=== PATIENT | female | born 1930 | race Caucasian/White ===

== ENCOUNTER 2016-11-09 19:02 | Inpatient (IN) ==
[2016-11-09 19:50] LABS: Basophils # 0.1 10*3/uL (0.0-0.2); Basophils % 0.5 % (0.0-0.8); Eosinophils % 0.3 % (0.00-10.9); Hemoglobin 13.4 GM/DL (12.0-16.0); Immature Granulocytes % 1.4 %; Immature Granulocytes Absolute 0.21 #; Lymphocytes # 0.7 10*3/uL (1.4-4.0); Lymphocytes % 4.7 % (21.3-54.2); Mean Corpuscular HGB Conc 33.5 GM/DL (32-36); Mean Corpuscular Hemoglobin 28 PG (27-34); Mean Corpuscular Volume 82.8 FL (87-102); Mean Platelet Volume 9.9 FL (9.6-12.0); Monocytes # 0.2 10*3/uL (0.11-0.8); Monocytes % 1.3 % (1.7-12.7); Neutrophils # 13.9 10*3/uL (1.4-7.4); Neutrophils % 91.8 % (38.7-73.9); Platelet Count 248 T/CUMM (130-400); Red Blood Count 4.83 MC/CUMM (3.8-5.5); Red Cell Distribution Width 14.2 % (9.3-17.3); White Blood Count 15.1 T/CUMM (4-12)
[2016-11-09 20:00] LABS: Apearance,Urine CLOUDY (Clear); Bilirubin,Urine Negative (Negative); Blood, Urine Small mg/dL (Negative); Glucose,Urine (UA) Negative (Negative); Ketones,Urine Negative (Negative); Nitrite,Urine Negative (Negative); Protein,Urine 100 MG/DL; RBC,Urine 9 /HPF (0-4); Urine Color Yellow (Yellow); Urine Specific Gravity 1.006 (1.001-1.035); Urine Urobilinogen < 2.0 EU/DL (0.2-1.0); WBC,Urine 412 /HPF (0-6)
--- NOTE | 2016-11-09 20:02 | Emergency Department Note ---
IDevante Hilary, am scribing for, and in the presence of, Rach Camacho DO 19: 38. IDoug Debra, DO, personally performed the services described in this documentation, ascribed by Jyothi Low in my presence, and it is both accurate and complete . Arrival - Arrival Chief Complaint: Fever Stated Complaint: WEAK/DIZZY/FEVER ED Nursing Triage Note: C/O Fever/generalized weakness. Onset this morning upon waking up. Pt denies urinary s/s. Denies recent illness/cough/congestion. States she just doesn't feel good. Mode of Arrival: Wheelchair Limitations: No Limitations Source: Patient, Family, RN Notes Reviewed - History of Present Illness HPI Narrative: Pt is a 86 y/o white female presenting to the ED with c/o of not feeling well which onset today. Pts daughter is in the room and states that she has been nauseous, vomited once, fever and chills. She reports that pt has not bee talkative or active today. Pt denies abdominal pain, RAPHAEL, cough, or chest pain but does mention falling and hurting her right leg the other day, she showed a bandaged lesion on her right leg. No other complaints or problems stated in the ED. Onset (ago): hour(s) Consistency: constant Severity: mild Severity scale (1-10): 1 Date of Last Menstrual Period: Hysterectomy Allergies/Adverse Reactions: Allergies Allergy/AdvReac Type Severity Reaction Status Date / Time meperidine [From Demerol] Allergy Intermediate RASH Verified 11/09/16 19:15 Home Medications: Home Medications Medication Instructions Recorded Confirmed Type Aspirin EC Tab 81 mg PO QAM 11/09/16 11/09/16 History Atorvastatin [Lipitor] 20 mg PO QAM 11/09/16 11/09/16 History Carvedilol 6.25 mg PO BID 11/09/16 11/09/16 History Clopidogrel [Plavix] 75 mg PO QAM 11/09/16 11/09/16 History Docusate Sodium Cap [Colace Cap] 100 mg PO DAILY PRN 11/09/16 11/09/16 History Donepezil HCl 10 mg PO BEDTIME 11/09/16 11/09/16 History Furosemide Tab [Lasix Tab] 40 mg PO QAM 11/09/16 11/09/16 History Gabapentin Cap/Tab [Neurontin 400 mg PO TID 11/09/16 11/09/16 History Cap/Tab] Glimepiride 4 mg PO BID 11/09/16 11/09/16 History Levothyroxine Tab [Synthroid Tab] 50 mcg PO DAILY@0700 11/09/16 11/09/16 History Loratadine Tab [Claritin Tab] 10 mg PO QAM 11/09/16 11/09/16 History Losartan Potassium 100 mg PO QAM 11/09/16 11/09/16 History Magnesium Oxide 400 mg PO QAM 11/09/16 11/09/16 History Multivitamin (Centrum) [Centrum 1 tablet PO QAM 11/09/16 11/09/16 History Tab] Omeprazole 40 mg PO QAM 11/09/16 11/09/16 History PARoxetine [Paxil] 20 mg PO QAM 11/09/16 11/09/16 History Potassium Chloride [Klor-Con M20] 20 meq PO BID 11/09/16 11/09/16 History Solifenacin [Vesicare] 5 mg PO QAM 11/09/16 11/09/16 History amLODIPine [Norvasc] 10 mg PO QAM 11/09/16 11/09/16 History rOPINIRole [Requip] 0.25 mg PO TID 11/09/16 11/09/16 History Review of System - Review of System 12 point system: reviewed and no additional remarkable complaints except as stated - Review of System Constitutional: Present: chills, fever, weakness Respiratory: Absent: cough Cardiovascular: Absent: chest pain Gastrointestinal: Present: nausea, vomiting. Absent: abdominal pain Skin: Present: as per HPI, lesions (right leg) Neurological: Present: weakness. Absent: headache Medical,Surgical,& Family Hx - Medical History Cardio: History of: Hypertension - Social History Smoking Status: Never smoker Frequency of Alcohol Use: None Type of Drug Use: None Exam Vital Signs: Vital Signs Temperature 100.0 F H 11/09/16 19:56 Pulse Rate 80 11/09/16 19:56 Respiratory Rate 20 11/09/16 19:56 Blood Pressure 176/91 11/09/16 19:56 O2 Sat by Pulse Oximetry 92 L 11/09/16 19:46 - General General appearance: alert, in no apparent distress, lethargic - Head Head exam: Present: atraumatic, normocephalic - Eye Eye exam: Present: normal appearance, PERRL, EOMI - ENT ENT exam: Present: mucous membranes dry, TM's normal bilaterally. Absent: mucous membranes moist - Neck Neck exam: Present: full ROM, trachea midline. Absent: tenderness - Chest Chest inspection: Present: symmetric chest wall rise. Absent: tenderness - Respiratory Respiratory exam: Present: normal lung sounds bilaterally. Absent: respiratory distress - Cardiovascular Cardiovascular exam: Present: regular rate, normal rhythm, normal heart sounds. Absent: murmur, rubs, gallop - Abdominal Exam Abdominal exam: Present: soft, normal bowel sounds. Absent: distention, tenderness - Extremities Exam Extremities exam: Present: full ROM. Absent: tenderness - Back Exam Back exam: Present: full ROM. Absent: tenderness - Neurological Exam Neurological exam: Present: alert, oriented X3, CN II-XII intact. Absent: motor sensory deficit - Psychiatric Psychiatric exam: Present: normal affect, normal mood - Skin Skin exam: Present: warm, dry, intact, pallor, other (Dime sized lesion on right leg of the posterior aspect. Pleural draimage present). Absent: rash Course Course Narrative: spoke with DR Wright re DR Torres pt. . will admit for uti with mild dehydration Results - Labs CBC & BMP: 11/09/16 19:34 11/09/16 19:34 Lab Results: I have reviewed the patients labs Labs: Laboratory Tests 11/09/16 11/09/16 19:34 19:34 WBC 15.1 H RBC 4.83 Hgb 13.4 Hct 40.0 MCV 82.8 L Plt Count 248 Neut % (Auto) 91.8 H Lymph % (Auto) 4.7 L [place] % (Auto) 1.3 L Neut # (Auto) 13.9 H Lymph # (Auto) 0.7 L Urine pH 6.0 Ur Specific [place] 1.006 Urine Protein 100 Urine Blood Small Urine Urobilinogen < 2.0 H Urine Leukocytes Large H Urine RBC 9 Urine WBC 412 Urine WBC Clumps Many Laboratory Tests 11/09/16 19:34 Lactic Acid 2.2 H - EKG EKG results: interpreted by ERMJt, no acute changes - Diagnostic Findings Procedure: Chest x-ray: image reviewed by me Disposition Clinical Impression: UTI (urinary tract infection) Case discussed with: patient, patient's family Disposition: Still a Patient Condition: Stable Time of Disposition: 20:33
[2016-11-09 20:13] LABS: Lactic Acid 2.2 MMOL/L (0.4-2.0)
[2016-11-09 20:23] LABS: Alanine Aminotransferase 21 U/L (13-56); Albumin 3.4 G/DL (3.4-5.0); Alkaline Phosphatase 67 U/L (45-117); Aspartate Amino Transferase 16 U/L (0-37); Blood Urea Nitrogen 28 MG/DL (7-18); Calcium 8.7 MG/DL (8.5-10.1); Glucose 143 MG/DL (74-106); Osmolality,Calculated 282.7 MOS/KG (273-304); Potassium 3.7 MMOL/L (3.5-5.1); Sodium 138 MMOL/L (136-145); Total Protein 7.4 G/DL (6.4-8.3); Troponin I Only 0.026 NG/ML (0.00-0.045)
[2016-11-09] MEDS ORDERED: SODIUM CHLORIDE 0.9% 1,000 ML IV STA (20:25)
[2016-11-09] MEDS ORDERED: cefTRIAXone 1,000 MG in SODIUM CHLORIDE 0.9% 100 ML IV STA (20:25)
[2016-11-09] MEDS ORDERED: ONDANSETRON 4 MG/2 ML VIAL IV PRN (20:33)
[2016-11-09] MEDS ORDERED: ACETAMINOPHEN 325 MG TABLET PO PRN (20:33)
[2016-11-09] MEDS ORDERED: cefTRIAXone 1,000 MG VIAL ONE (20:35)
[2016-11-09] MEDS ORDERED: SODIUM CHLORIDE 0.9% 100 ML IV ONE (20:36)
[2016-11-09 20:53] LABS: Band Neutrophils 8 % (0-10); Lymphocytes 4 % (20-55); Platelet Estimate Normal; Segmented Neutrophils 86 % (50-85); Total Cells Counted 100
--- NOTE | 2016-11-09 21:00 | XRay Report ---
Portable chest Date: 11/09/2016 Clinical history: Fever Comparison: 12/03/2012 Technique: Portable AP sitting chest Findings: Stable cardiomegaly with left ventricular prominence and uncoiling the aorta. Chronic scarring in the lungs with reduced parenchymal findings and resolved pleural effusions. Stable mediastinum with degenerative changes. Impression: Stable cardiomegaly with left ventricular prominence and uncoiling the aorta which can be seen with hypertensive cardiovascular disease. Chronic scarring in the lungs. Atelectasis/minimal infiltration at the left lung base. PROCEDURE INTERPRETED AT [facility] DEPARTMENT OF RADIOLOGY Final Report Signed by: Dr. Elisa Dawkins
[2016-11-09] MEDS ORDERED: CIPROFLOXACIN INJ 400 MG in PREMIX 1 EACH IV SCH (22:00)
[2016-11-09] MEDS: SODIUM CHLORIDE 0.9% 1,000 ML IV SCH (22:37)
[2016-11-09] MEDS: DOCUSATE SODIUM 100 MG CAPSULE PO SCH (22:37)
[2016-11-10 02:22] LABS: Basophils # 0.1 10*3/uL (0.0-0.2); Basophils % 0.3 % (0.0-0.8); Hematocrit 35.6 VOL% (35.7-47.0); Hemoglobin 11.6 GM/DL (12.0-16.0); Immature Granulocytes % 0.6 %; Lymphocytes % 5.9 % (21.3-54.2); Mean Corpuscular HGB Conc 32.6 GM/DL (32-36); Mean Corpuscular Hemoglobin 27 PG (27-34); Mean Corpuscular Volume 84.2 FL (87-102); Mean Platelet Volume 10.6 FL (9.6-12.0); Monocytes # 0.7 10*3/uL (0.11-0.8); Monocytes % 3.9 % (1.7-12.7); Neutrophils % 89.3 % (38.7-73.9); Platelet Count 230 T/CUMM (130-400); Red Blood Count 4.23 MC/CUMM (3.8-5.5); Red Cell Distribution Width 14.3 % (9.3-17.3); White Blood Count 16.8 T/CUMM (4-12)
[2016-11-10 02:49] LABS: Calcium 8.4 MG/DL (8.5-10.1); Osmolality,Calculated 289.7 MOS/KG (273-304); Potassium 3.9 MMOL/L (3.5-5.1)
[2016-11-10] MEDS: SODIUM CHLORIDE 0.9% 1,000 ML IV SCH ×2 (04:04→15:59)
[2016-11-10 04:11] LABS: Platelet Estimate Normal
--- NOTE | 2016-11-10 07:44 | Family Practice History&Phys ---
Assessment and Plan (1) Chronic renal failure, stage 3 (moderate) Status: Acute Assessment and plan: 11/11/2015: Patient will be hydrated. Renal ultrasound will be ordered to make sure there is no hydronephrosis. Current Visit: Yes (2) UTI (urinary tract infection) Status: Acute Assessment and plan: 11/10/2016: Patient received 1 g of Rocephin in the emergency room and is now on IV Cipro. Cultures are pending. Current Visit: Yes History of Present Illness Chief complaint: Fever with nausea and vomiting History of present illness: Ms. Chapa is a 86 year old female Patient's 86-year-old white female was brought to emergency room if she developed nausea, vomiting fever and just feeling terrible. Patient was found to have urinary tract infection but did not any frequency or dysuria. She is not having any flank pain states she feels better this morning. Patient has not had any hematuria and states she is not trouble with recurring UTIs. She denies any respiratory symptoms of any nature and is not having any abdominal pain. Patient states she was feeling fine until yesterday afternoon. Home Medications Medication Instructions Recorded Confirmed Type Aspirin EC Tab 81 mg PO QAM 11/09/16 11/09/16 History Atorvastatin [Lipitor] 20 mg PO QAM 11/09/16 11/09/16 History Carvedilol 6.25 mg PO BID 11/09/16 11/09/16 History Clopidogrel [Plavix] 75 mg PO QAM 11/09/16 11/09/16 History Digoxin Tab [Lanoxin Tab] 0.125 mg PO DAILY@1300 11/09/16 11/09/16 History Docusate Sodium Cap [Colace Cap] 100 mg PO DAILY PRN 11/09/16 11/09/16 History Donepezil HCl 10 mg PO BEDTIME 11/09/16 11/09/16 History Furosemide Tab [Lasix Tab] 40 mg PO QAM 11/09/16 11/09/16 History Gabapentin Cap/Tab [Neurontin 400 mg PO TID 11/09/16 11/09/16 History Cap/Tab] Glimepiride 4 mg PO BID 11/09/16 11/09/16 History Levothyroxine Tab [Synthroid Tab] 50 mcg PO DAILY@0700 11/09/16 11/09/16 History Loratadine Tab [Claritin Tab] 10 mg PO QAM 11/09/16 11/09/16 History Losartan Potassium 100 mg PO QAM 11/09/16 11/09/16 History Magnesium Oxide 400 mg PO DAILY 11/09/16 11/09/16 History Magnesium Oxide 400 mg PO QAM 11/09/16 11/09/16 History Multivitamin (Centrum) [Centrum 1 tablet PO QAM 11/09/16 11/09/16 History Tab] Omeprazole 40 mg PO QAM 11/09/16 11/09/16 History PARoxetine [Paxil] 20 mg PO QAM 11/09/16 11/09/16 History Potassium Chloride [Klor-Con M20] 20 meq PO BID 11/09/16 11/09/16 History Solifenacin [Vesicare] 5 mg PO QAM 11/09/16 11/09/16 History amLODIPine [Norvasc] 10 mg PO QAM 11/09/16 11/09/16 History rOPINIRole [Requip] 0.25 mg PO TID 11/09/16 11/09/16 History sitaGLIPtin [Januvia] 100 mg PO DAILY 11/09/16 11/09/16 History Allergies Allergy/AdvReac Type Severity Reaction Status Date / Time meperidine [From Demerol] Allergy Intermediate RASH Verified 11/09/16 19:15 - Constitutional Constitutional: Present: chills, fever(s), weakness - EENT Eyes: Absent: blurry vision, loss of vision Ears: Absent: decreased hearing, ear pain Nose, mouth and throat: Absent: hoarseness, nasal congestion, sinus pressure, sore throat - Cardiovascular Cardiovascular: Absent: chest pain at rest, orthopnea, palpitations, PND - Respiratory Respiratory: Absent: cough, dyspnea, dyspnea on exertion, wheezing - Gastrointestinal Gastrointestinal: Present: nausea, vomiting. Absent: abdominal pain, diarrhea, dyspepsia, dysphagia, hematemesis, hematochezia, melena - Genitourinary Genitourinary: Absent: difficulty urinating, flank pain, hematuria, urinary frequency, urinary hesitancy - Musculoskeletal Musculoskeletal: Absent: arthralgias, back pain - Neurological Neurological: Absent: confusion, focal weakness, headache(s), numbness, paresthesias - Psychiatric Psychiatric: Absent: anxiety, confusion, depression - Endocrine Endocrine: Absent: fatigue, polydipsia, polyphagia - Hematologic/Lymphatic Hematologic/Lymphatic: Absent: easy bleeding, easy bruising Medical,Surgical,& Family Hx - Medical History Cardio: History of: CAD, Hypertension Psychological: History of: Depression Neurology: History of: Dementia HEENT: History of: Ear Problem ([place]) Endocrine: History of: Diabetes Mellitus (IDDM), Thyroid Disorder Respiratory: History of: Pneumonia Genitourinary: History of: Bladder Problem (incontinent) Musculoskeletal: History of: Musculoskeletal Problems (arthritis) - Surgical History Cardiac Surgeries: Sugical HX of: Cardiac Catheterization - Family History Family History: Reports;: Family Cancer (mother- breast), Family Heart Disease ( father), Family Hypertension (mother, father) Denies;: Family Anesthesia Reaction, Family Diabetes, Family Hematology, Family Psychiatric Problems, Family Stroke, Additional Family History - Social History Smoking Status: Never smoker Frequency of Alcohol Use: None Type of Drug Use: None Exam - Constitutional Vitals: Period Temp Pulse Resp BP Sys/Dennison Pulse Ox Last 24 Hr 96.9 F-100.0 F 62-85 14-20 117-176/59-96 92-98 Exam: General: Objective patient is a well-developed white female from [facility] who appears to be in no acute distress. Patient is able to give an excellent history and is still delightful lady who appears much younger than her stated age. HEENT: Pupils equal and reactive to light. Patent nares and airway Neck: No meningismus, adenopathy, thyromegaly. There are no auscultated carotid bruits. Cardiovascular: Regular rhythm. No murmurs or gallops Chest: Clear to auscultation without rales rhonchi wheezes. Abdomen: Soft nontender to palpation No masses, rebound, guarding or tenderness. There is no CVAT Neuro: Cranial nerves intact and DTRs and strength symmetric in all extremities. Dermatologic: No evidence of abnormal lesions or masses. Musculoskeletal: There is no joint swelling or tenderness or deformity. Extremities: Is no calf swelling or tenderness. Results - Labs CBC & BMP: 11/10/16 01:20 11/10/16 01:21 Lab Results: I have reviewed the past 24 hour labs - EKG EKG results: sinus rhythm (73 bpm), no acute changes - Diagnostic Findings Procedure: Chest x-ray: report reviewed by me (Patient is noted to have minimal atelectasis left base. She does have cardiomegaly.)
[2016-11-10] MEDS: GLIMEPIRIDE 4 MG TABLET PO SCH ×2 (08:49→20:31)
[2016-11-10] MEDS: ATORVASTATIN 20 MG TABLET PO SCH (08:49)
[2016-11-10] MEDS: amLODIPine 10 MG TABLET PO SCH (08:49)
[2016-11-10] MEDS: sitaGLIPtin 100 MG TABLET PO SCH (08:49)
[2016-11-10] MEDS: POTASSIUM CHLORIDE 20 MEQ TABLET PO SCH ×2 (08:50→20:31)
[2016-11-10] MEDS: DOCUSATE SODIUM 100 MG CAPSULE PO SCH ×2 (08:50→20:31)
[2016-11-10] MEDS: CLOPIDOGREL 75 MG TABLET PO SCH (08:50)
[2016-11-10] MEDS: LOSARTAN 50 MG TABLET PO SCH (08:50)
[2016-11-10] MEDS: CARVEDILOL 6.25 MG TABLET PO SCH ×2 (08:50→20:31)
[2016-11-10] MEDS: FUROSEMIDE 40 MG TABLET PO SCH (08:50)
[2016-11-10] MEDS: rOPINIRole 0.25 MG TABLET PO SCH ×3 (08:50→20:31)
[2016-11-10] MEDS: SOLIFENACIN 5 MG TABLET PO SCH (08:50)
[2016-11-10] MEDS: LORATADINE 10 MG TABLET PO SCH (08:50)
[2016-11-10] MEDS: PANTOPRAZOLE 40 MG TABLET PO SCH (08:50)
[2016-11-10] MEDS: MAGNESIUM OXIDE 400 MG TABLET PO SCH (08:50)
[2016-11-10] MEDS: GABAPENTIN 400 MG CAPSULE PO SCH ×3 (08:50→20:31)
[2016-11-10] MEDS: ASPIRIN EC 81 MG TABLET PO SCH (08:51)
[2016-11-10] MEDS: PARoxetine 20 MG TABLET PO SCH (08:51)
[2016-11-10] MEDS: MULTIVITAMIN (CENTRUM) TABLET PO SCH (08:51)
[2016-11-10] MEDS ORDERED: NON-FORMULARY MEDICATION (Omeprazole [Omeprazole] 40 MG) PO SCH (09:00)
--- NOTE | 2016-11-10 09:01 | EKG Report ---
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
[2016-11-10] MEDS ORDERED: ALBUTEROL/IPRATROPIUM 3 ML NEB RESP TX PRN (10:37)
--- NOTE | 2016-11-10 10:44 | Ultrasound Report ---
Exam: US renal Bilateral Date: 11/10/2016 7:39 AM Comparison: None Indication: UTI, elevated creatinine Technique:[Multiple transabdominal real-time scans were obtained of the kidneys. Ultrasound images were captured and stored.] Findings: Right kidney measures 108 x 52 x 50 mm. Left kidney measures 95 x 53 x 50 mm. No hydronephrosis with inhomogeneous echogenicity in the kidneys. Minimal right perinephric fluid. 14 mm, 8 mm, and 12 mm simple appearing left midpole renal cysts. Impression: The kidneys are fairly symmetric in size with no hydronephrosis. Minimal right perinephric fluid which may be associated with infection, inflammation, etc. Small left renal cysts. Inhomogeneous echogenicity which can be seen with possible medical renal disease. PROCEDURE INTERPRETED AT [facility] DEPARTMENT OF RADIOLOGY Final Report Signed by: Dr. Elisa Dawkins
[2016-11-10] MEDS ORDERED: methylPREDNISolone SOD SUC 40 MG/1 ML VIAL IV ONE (11:08)
[2016-11-10] MEDS ORDERED: ALBUTEROL 2.5 MG/3 ML NEB RESP TX ONE ×2 (11:08)
[2016-11-10] MEDS ORDERED: FUROSEMIDE 40 MG/4 ML VIAL IV ONE ×3 (11:22→11:57)
[2016-11-10] MEDS ORDERED: MORPHINE 2 MG/1 ML SYRINGE IV ONE (11:23)
--- NOTE | 2016-11-10 11:49 | XRay Report ---
Portable chest Date: 11/10/2016 Clinical history: Shortness of breath Comparison: 11/09/2016 Technique: Portable AP sitting chest Findings: Stable cardiomegaly with left ventricular prominence and uncoiling of the aorta. More prominent pulmonary vasculature with progressive parenchymal findings especially at the lung bases. Degenerative changes are noted. Impression: Stable cardiomegaly with evidence of mild CHF. It is difficult to exclude pneumonitis with reticulonodular parenchymal findings. Minimal atelectasis. Follow-up chest x-ray recommended. PROCEDURE INTERPRETED AT [facility] DEPARTMENT OF RADIOLOGY Final Report Signed by: Dr. Elisa Dawkins
--- NOTE | 2016-11-10 11:51 | EKG Report ---
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
[2016-11-10] MEDS ORDERED: MORPHINE 2 MG/1 ML SYRINGE IV PRN (11:55)
[2016-11-10] MEDS ORDERED: hydrALAZINE 20 MG/1 ML VIAL IV ONE (11:56)
--- NOTE | 2016-11-10 14:19 | Nuclear Medicine Report ---
Exam: Lung scan ventilation/perfusion Date: 11/10/2016 Comparison: Chest x-ray the 11/10/2016 Reason: Shortness of breath, low O2 sats Technique: 30 mCi of technetium 99m DTPA aerosolized was inhaled with injection of 5 mCi of technetium 99m MAA . 3 view Ventilation and perfusion images of both lungs were acquired. Findings: Diffuse diminished ventilation peripherally in the lungs with minimal central trapping of the isotope on the ventilation scans. No unmatched perfusion defects are identified. The perfusion defects are less prominent than the ventilation defects. Impression: Limited three-view low probability lung scan. PROCEDURE INTERPRETED AT [facility] DEPARTMENT OF RADIOLOGY Final Report Signed by: Dr. Elisa Dawkins
[2016-11-10] MEDS: ENOXAPARIN 30 MG/0.3 ML SYRINGE SUBCUT SCH (15:35)
[2016-11-10] MEDS: CIPROFLOXACIN INJ 400 MG in PREMIX 1 EACH IV SCH (15:35)
[2016-11-10] MEDS: DIGOXIN 0.125 MG TABLET PO SCH (15:36)
[2016-11-10] MEDS: ALBUTEROL 2.5 MG/3 ML NEB RESP TX SCH ×3 (15:46→23:58)
[2016-11-10] MEDS ORDERED: FUROSEMIDE 40 MG/4 ML VIAL IV SCH (16:00)
[2016-11-10] MEDS: DONEPEZIL 10 MG TABLET PO SCH (20:31)
[2016-11-11] MEDS: ALBUTEROL 2.5 MG/3 ML NEB RESP TX SCH ×5 (02:56→19:10)
[2016-11-11 04:49] LABS: Calcium 8.3 MG/DL (8.5-10.1); Magnesium 2.2 MG/DL (1.8-2.4); Potassium 4.3 MMOL/L (3.5-5.1)
[2016-11-11] MEDS: LEVOTHYROXINE 50 MCG TABLET PO SCH (06:33)
[2016-11-11] MEDS: sitaGLIPtin 100 MG TABLET PO SCH ×2 (08:04→08:51)
[2016-11-11] MEDS: LOSARTAN 50 MG TABLET PO SCH (08:04)
[2016-11-11] MEDS: GLIMEPIRIDE 4 MG TABLET PO SCH ×2 (08:04→20:17)
[2016-11-11] MEDS: amLODIPine 10 MG TABLET PO SCH (08:04)
[2016-11-11] MEDS: SOLIFENACIN 5 MG TABLET PO SCH (08:04)
[2016-11-11] MEDS: MULTIVITAMIN (CENTRUM) TABLET PO SCH (08:04)
[2016-11-11] MEDS: PANTOPRAZOLE 40 MG TABLET PO SCH (08:04)
[2016-11-11] MEDS: LORATADINE 10 MG TABLET PO SCH (08:04)
[2016-11-11] MEDS: DOCUSATE SODIUM 100 MG CAPSULE PO SCH ×2 (08:05→20:17)
[2016-11-11] MEDS: PARoxetine 20 MG TABLET PO SCH (08:05)
[2016-11-11] MEDS: ATORVASTATIN 20 MG TABLET PO SCH (08:05)
[2016-11-11] MEDS: FUROSEMIDE 40 MG TABLET PO SCH (08:05)
[2016-11-11] MEDS: POTASSIUM CHLORIDE 20 MEQ TABLET PO SCH ×2 (08:05→20:17)
[2016-11-11] MEDS: GABAPENTIN 400 MG CAPSULE PO SCH ×3 (08:05→20:17)
[2016-11-11] MEDS: CLOPIDOGREL 75 MG TABLET PO SCH (08:05)
[2016-11-11] MEDS: CARVEDILOL 6.25 MG TABLET PO SCH ×2 (08:05→20:17)
[2016-11-11] MEDS: MAGNESIUM OXIDE 400 MG TABLET PO SCH (08:05)
[2016-11-11] MEDS: ASPIRIN EC 81 MG TABLET PO SCH (08:05)
[2016-11-11] MEDS: rOPINIRole 0.25 MG TABLET PO SCH ×3 (08:05→20:17)
--- NOTE | 2016-11-11 08:42 | Internal Med Progress Note ---
Assessment and Plan (1) Bacteremia Status: Acute Assessment and plan: 86-year-old female admitted to acute care. * Bacteremia. Patient was found to have positive blood cultures with gram- negative rods and urine culture with gram-negative rods. Sensitivities pending. She is on Cipro. Will add Rocephin for broader coverage * CRF. Her creatinine is slightly higher than the baseline of 1.7. Renal ultrasound noted * Hypertension. Blood pressure is stable * Diabetes. Stable. Will decrease the dose of Januvia * Continue present management. Current Visit: Yes (2) Diabetes Status: Acute Current Visit: Yes (3) Hypertension Status: Acute Current Visit: Yes (4) Hypothyroidism Status: Acute Current Visit: Yes (5) Chronic renal failure, stage 3 (moderate) Status: Acute Current Visit: Yes (6) UTI (urinary tract infection) Status: Acute Current Visit: Yes Internal Medicine - PN: Subj Interval history: Patient seen and examined. She is sitting up in the bed eating her breakfast. She feels better. Her energy level has improved. She denies any chest pain or shortness of breath. She denies any nausea vomiting or diarrhea. Exam (Progress Note) - Constitutional Vitals: Period Temp Pulse Resp BP Sys/Dennison Pulse Ox Last 24 Hr 96.4 F-98.8 F 57-104 15-20 146-220/52-110 84-98 Exam: Examination: GENERAL: NAD. HEENT: PERRLA. EOMI. Mucous membranes are moist. NECK: Neck is supple. No JVD. No carotid bruit. No thyromegaly. CVS: Regular rate and rhythm. S1 and S2 are normal. RESPIRATORY: Lungs are clear. No rales or rhonchi. ABDOMEN: Soft and nontender. EXT: No edema. Peripheral pulses are present. CRUISE GUIDE: Patient is awake, alert and oriented to time place and person. Motor strength 4/5 SKIN: Warm and dry. MSK: No obvious deformity. Results - Labs CBC & BMP: 11/10/16 01:20 11/11/16 03:23 Lab Results: I have reviewed the past 24 hour labs
[2016-11-11] MEDS: cefTRIAXone 1,000 MG in SODIUM CHLORIDE 0.9% 100 ML IV SCH (08:56)
[2016-11-11] MEDS: CIPROFLOXACIN INJ 400 MG in PREMIX 1 EACH IV SCH (09:00)
[2016-11-11] MEDS: DIGOXIN 0.125 MG TABLET PO SCH (13:58)
[2016-11-11] MEDS: ENOXAPARIN 30 MG/0.3 ML SYRINGE SUBCUT SCH (13:59)
[2016-11-11] MEDS: DONEPEZIL 10 MG TABLET PO SCH (20:17)
[2016-11-12] MEDS: ALBUTEROL 2.5 MG/3 ML NEB RESP TX SCH ×7 (00:03→23:44)
[2016-11-12] MEDS ORDERED: FUROSEMIDE 20 MG/2 ML VIAL IV ONE (02:08)
[2016-11-12] MEDS ORDERED: FUROSEMIDE 40 MG/4 ML VIAL ONE (02:12)
[2016-11-12] MEDS ORDERED: hydrALAZINE 20 MG/1 ML VIAL IV ONE ×2 (03:04→05:04)
[2016-11-12] MEDS: CIPROFLOXACIN INJ 400 MG in PREMIX 1 EACH IV SCH ×2 (04:23→23:42)
[2016-11-12 04:57] LABS: Calcium 8.9 MG/DL (8.5-10.1); Osmolality,Calculated 289.5 MOS/KG (273-304); Potassium 3.9 MMOL/L (3.5-5.1); Troponin I Only 0.336 NG/ML (0.00-0.045)
--- NOTE | 2016-11-12 06:17 | EKG Report ---
Stationary ECG Study 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
[2016-11-12] MEDS: LEVOTHYROXINE 50 MCG TABLET PO SCH (06:18)
[2016-11-12 06:20] LABS: Basophils % 0.2 % (0.0-0.8); Eosinophils # 0.1 10*3/uL (0.0-0.87); Eosinophils % 0.5 % (0.00-10.9); Hematocrit 34.5 VOL% (35.7-47.0); Hemoglobin 11.2 GM/DL (12.0-16.0); Immature Granulocytes % 0.8 %; Immature Granulocytes Absolute 0.14 #; Lymphocytes # 1.3 10*3/uL (1.4-4.0); Lymphocytes % 7.8 % (21.3-54.2); Mean Corpuscular HGB Conc 32.5 GM/DL (32-36); Mean Corpuscular Hemoglobin 27 PG (27-34); Mean Corpuscular Volume 83.1 FL (87-102); Mean Platelet Volume 10.6 FL (9.6-12.0); Monocytes # 1.1 10*3/uL (0.11-0.8); Monocytes % 6.8 % (1.7-12.7); Neutrophils # 14.1 10*3/uL (1.4-7.4); Neutrophils % 83.9 % (38.7-73.9); Platelet Count 257 T/CUMM (130-400); Red Blood Count 4.15 MC/CUMM (3.8-5.5); Red Cell Distribution Width 14.3 % (9.3-17.3); White Blood Count 16.8 T/CUMM (4-12)
--- NOTE | 2016-11-12 08:18 | Internal Med Progress Note ---
Assessment and Plan (1) Bacteremia Status: Acute Assessment and plan: 86-year-old female admitted to acute care. * Bacteremia. Patient was found to have positive blood cultures with gram- negative rods with Klebsiella pneumonia. She will continue Cipro and Rocephin * CRF. Continue current treatment * CHF. Patient was moved to intensive care unit because of shortness of breath. Probably fluid overload. Her initial troponin is slightly high but she had no chest pain. Will check another troponin and check echocardiogram. Fluids have been stopped * Hypertension. Blood pressure is stable * Diabetes. Stable. Will decrease the dose of Januvia * Continue present management. Current Visit: Yes (2) Diabetes Status: Acute Current Visit: Yes (3) Hypertension Status: Acute Current Visit: Yes (4) Hypothyroidism Status: Acute Current Visit: Yes (5) Chronic renal failure, stage 3 (moderate) Status: Acute Current Visit: Yes (6) UTI (urinary tract infection) Status: Acute Current Visit: Yes Internal Medicine - PN: Subj Interval history: Patient developed wheezing during the night and was moved to intensive care unit. She was short of breath and diuresed with IV Lasix. She denies any complaints this morning. Exam (Progress Note) - Constitutional Vitals: Period Temp Pulse Resp BP Sys/Dennison Pulse Ox Last 24 Hr 97.2 F-100.8 F 57-84 16-29 149-231/61-126 86-99 Exam: Examination: GENERAL: NAD. NECK: Neck is supple. CVS: Regular rate and rhythm. S1 and S2 are normal. RESPIRATORY: Lungs are clear. ABDOMEN: Soft and nontender. EXT: No edema. 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 Motor strength 4/5 SKIN: Warm and dry. Results - Labs CBC & BMP: 11/12/16 05:17 11/12/16 04:11
[2016-11-12] MEDS: SOLIFENACIN 5 MG TABLET PO SCH (08:43)
[2016-11-12] MEDS: rOPINIRole 0.25 MG TABLET PO SCH ×3 (08:44→20:27)
[2016-11-12] MEDS: LOSARTAN 50 MG TABLET PO SCH (08:44)
[2016-11-12] MEDS: LORATADINE 10 MG TABLET PO SCH (08:44)
[2016-11-12] MEDS: sitaGLIPtin 100 MG TABLET PO SCH (08:45)
[2016-11-12] MEDS: MAGNESIUM OXIDE 400 MG TABLET PO SCH (08:45)
[2016-11-12] MEDS: ASPIRIN EC 81 MG TABLET PO SCH (08:45)
[2016-11-12] MEDS: GLIMEPIRIDE 4 MG TABLET PO SCH ×2 (08:45→20:27)
[2016-11-12] MEDS: DOCUSATE SODIUM 100 MG CAPSULE PO SCH ×2 (08:45→20:27)
[2016-11-12] MEDS: PARoxetine 20 MG TABLET PO SCH (08:46)
[2016-11-12] MEDS: POTASSIUM CHLORIDE 20 MEQ TABLET PO SCH ×2 (08:46→20:27)
[2016-11-12] MEDS: GABAPENTIN 400 MG CAPSULE PO SCH ×3 (08:46→20:27)
[2016-11-12] MEDS: CLOPIDOGREL 75 MG TABLET PO SCH (08:46)
[2016-11-12] MEDS: FUROSEMIDE 40 MG TABLET PO SCH (08:47)
[2016-11-12] MEDS: CARVEDILOL 6.25 MG TABLET PO SCH ×2 (08:47→20:27)
[2016-11-12] MEDS: MULTIVITAMIN (CENTRUM) TABLET PO SCH (08:47)
[2016-11-12] MEDS: PANTOPRAZOLE 40 MG TABLET PO SCH (08:47)
[2016-11-12] MEDS: amLODIPine 10 MG TABLET PO SCH (08:47)
[2016-11-12] MEDS: ATORVASTATIN 20 MG TABLET PO SCH ×2 (08:48→20:27)
[2016-11-12] MEDS: cefTRIAXone 1,000 MG in SODIUM CHLORIDE 0.9% 100 ML IV SCH (08:48)
--- NOTE | 2016-11-12 09:36 | XRay Report ---
Exam: XR chest 1V Date: 11/12/2016 8:08 AM Indication: Volume overload Comparison: 11/10/2016 Technical: AP portable Findings: Cardiomegaly present with ASVD. Some minimal atelectatic change in the right base. Oxygen tubing external cardiac leads are present. No pneumothorax. No definite consolidations are significant effusions present. Impression: 1. Mild cardiomegaly and ASVD with atelectatic change in the right base with overall decreased alveolar interstitial densities when compared to previous exam PROCEDURE INTERPRETED AT [facility] DEPARTMENT OF RADIOLOGY Final Report Signed by: Dr. Rufus Gramajo
[2016-11-12 09:40] LABS: Troponin I Only 0.373 NG/ML (0.00-0.045)
[2016-11-12 13:42] LABS: Troponin I Only 0.361 NG/ML (0.00-0.045)
--- NOTE | 2016-11-12 14:20 | ECHO Report ---
SammiNitza calvilloba Exam Date: 11/12/2016 09:46 Referring Physician: Technologist: Gayatri Griffith Age: 86 Ht (in): 63 Wt (lb): 144 Gender: F Exam Location: [facility] Echo Indications: HTN, bacteremia, diabetes, hypothyroidism, CRF III, UTI BP: 164 / 61 HR: 83 Rhythm: Sinus Technical Quality: Fair IMPRESSIONS EF 45-50 %. Grade I/IV diastolic dysfunction (abnormal relaxation filling pattern), normal to mildly elevated filling pressures. Mildly increased right ventricular size. The right atrium is mildly enlarged. The left atrium is mildly enlarged. Mitral valve sclerosis. Trace mitral valve regurgitation. Aortic valve sclerosis. Trace aortic valve regurgitation. Mild tricuspid valve regurgitation. [id number]. Trace pulmonary valve regurgitation. No pericardial effusion. Normal size aortic root and proximal ascending aorta. MEASUREMENTS (Male / Female) Normal Values 2D ECHO LV Diastolic Diameter PLAX 4.3 cm 4.2 - 5.9 / 3.9 - 5.3 cm LV Systolic Diameter PLAX 3.4 cm LV Fractional Shortening PLAX 22.1 % IVS Diastolic Thickness 1.4 cm 0.6 - 1.0 / 0.6 - 0.9 cm LVPW Diastolic Thickness 1.4 cm 0.6 - 1.0 / 0.6 - 0.9 cm RV Internal Dim ED PLAX 2.9 cm Aortic Root Diameter 3.9 cm LA Systolic Diameter LX 4.4 cm 3.0 - 4.0 / 2.7 - 3.8 cm DOPPLER TR Peak Velocity 227.0 cm/s TR Peak Gradient 20.6 mmHg FINDINGS Left Ventricle EF 45-50 %. Grade I/IV diastolic dysfunction (abnormal relaxation filling pattern), normal to mildly elevated filling pressures. Right Ventricle Mildly increased right ventricular size. Right Atrium The right atrium is mildly enlarged. Left Atrium The left atrium is mildly enlarged. Mitral Valve Mitral valve sclerosis. Trace mitral valve regurgitation. Aortic Valve Aortic valve sclerosis. Trace aortic valve regurgitation. Tricuspid Valve Morphologically normal tricuspid valve. Mild tricuspid valve regurgitation. [id number]. Pulmonic Valve Morphologically normal pulmonic valve. Trace pulmonary valve regurgitation. Pericardium No pericardial effusion. Aorta Normal size aortic root and proximal ascending aorta. Emiliano Shanda (Electronically Signed) Final Date: 12 November 2016 14:19
[2016-11-12] MEDS: DIGOXIN 0.125 MG TABLET PO SCH (14:49)
[2016-11-12] MEDS: ENOXAPARIN 30 MG/0.3 ML SYRINGE SUBCUT SCH (14:49)
--- NOTE | 2016-11-12 17:02 | Cardiology Consult Note ---
I, Iris Tay RN, am scribing for, and in the presence of, Olaf Land MD 16:58. Assessment and Plan - Time spent with patient Time spent with patient: Greater than 30 minutes (Assessment, planning, documentation, medication review) (1) CAD (coronary artery disease) Status: Chronic Current Visit: Yes Qualifiers: Coronary Disease-Associated Artery/Lesion type: [place] artery [place] vs. transplanted heart: [place] heart (2) Bacteremia Status: Acute Current Visit: Yes (3) Chronic renal failure, stage 3 (moderate) Status: Chronic Current Visit: Yes (4) Diabetes Status: Chronic Current Visit: Yes (5) Hypertension Status: Chronic Current Visit: Yes (6) Elevated troponin Status: Acute Current Visit: Yes History of Present Illness - Data of Consult Patient: known to practice within the last 3 years Consult date: 11/12/16 Requesting Physician: Zafar Mehta - Consult Narrative Reason for consult: Elevated troponin History of present illness: Rip Tailer: Dr. Keith in the remote past Ms. Chapa is a 86 year old female who has been seen by Dr. Keith remotely. History is difficult to obtain from her because she keeps dozing off. Her is at bedside and assists with the history, but his knowledge is limited. She had stent to mid LAD 12/01/2012 Dr. Keith. Her does not think she has seen cardiology since then and I find no records since that time. She has a history of CAD, dyslipidemia, hypertension, GERD, chronic renal failure, and NIDDM. Surgical history includes appendectomy, cholecystectomy, and hysterectomy. She no longer smokes, her says she quit about 25 years ago. She lives at home with her and uses a cane for assistance. Her states she has been experiencing weakness for a couple of weeks has gradually gotten worse. On 11/09/2016 she became weak and fell in the living room. She denies any syncope, says she just lost her balance. After the fall she became short of breath which she said she did not think she was having before that. reports she been complaining of being hot and cold a lot. After the fall her daughter checked her temp it was noted to be 103. She denies having had any chest pain, but does tell me she has had a tightness all the way across her chest that seems to come on when she gets short of breath. She is unable to tell me how long she has been having this pain or when she had it last. I am unable to get from her any triggers or alleviators. When asked her , he says she really has not complained of any chest pain or tightness. She was found to have positive blood and urine cultures with gram- negative rods with Klebsiella pneumoniae. She is on IV Cipro and Rocephin. Chest x-ray showed mild cardiomegaly and minimal atelectasis in the right base. She had a low probability lung scan. Renal ultrasound negative. We have been asked to see the patient for elevated troponin. Currently she is resting in bed in the intensive care in no acute distress. Oxygen is in use via nasal cannula and she reports her breathing has improved some. She denies any chest pain or tightness at this time. 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 CAD 2. Bacteremia 3. Chronic renal failure 4. Diabetes 5. Hypertension 6. Elevated troponin Cardiology addendum Patient examined chart reviewed and discussed with nurse Iris Tay RN. 86-year-old woman admitted with weakness and shortness of breath and nausea. Patient has Klebsiella bacteremia and UTI. Chest x-ray shows mild cardiomegaly with cephalization of flow and early CHF. Trivial troponin 0.336 and 0.373 in the face of chronic renal insufficiency. BUN 47 creatinine 2.20. EKG shows sinus rhythm With preserved airways and ST-T wave changes. Patient has documented CAD. Cardiac cath done December 01, [address] Bernal showed 95% mid LAD which was stented with a 2.25 x 28 mm Zions drug-coated stent with circumflex 30-40% stenosis and mild disease the right coronary with an occluded posterior LV branch. Echo Doppler today showed ejection fraction of 45-50% with mild dilated left atrium, aortic sclerosis, mild TR PA pressure 35-40 with no effusion. Remote tobacco abuse, quit 1989. Does not drink any alcohol. 5 feet 3 inches tall 154 pounds. Type 2 diabetes Plan continue Cipro and Rocephin. Await organism sensitivities 40 mg IV Lasix CC: Zafar Mehta MD - Home Medications and Allergies Home Medications: Home Medications Medication Instructions Recorded Confirmed Type Aspirin EC Tab 81 mg PO QAM 11/09/16 11/09/16 History Atorvastatin [Lipitor] 20 mg PO QAM 11/09/16 11/09/16 History Carvedilol 6.25 mg PO BID 11/09/16 11/09/16 History Clopidogrel [Plavix] 75 mg PO QAM 11/09/16 11/09/16 History Digoxin Tab [Lanoxin Tab] 0.125 mg PO DAILY@1300 11/09/16 11/09/16 History Docusate Sodium Cap [Colace Cap] 100 mg PO DAILY PRN 11/09/16 11/09/16 History Donepezil HCl 10 mg PO BEDTIME 11/09/16 11/09/16 History Furosemide Tab [Lasix Tab] 40 mg PO QAM 11/09/16 11/09/16 History Gabapentin Cap/Tab [Neurontin 400 mg PO TID 11/09/16 11/09/16 History Cap/Tab] Glimepiride 4 mg PO BID 11/09/16 11/09/16 History Levothyroxine Tab [Synthroid Tab] 50 mcg PO DAILY@0700 11/09/16 11/09/16 History Loratadine Tab [Claritin Tab] 10 mg PO QAM 11/09/16 11/09/16 History Losartan Potassium 100 mg PO QAM 11/09/16 11/09/16 History Magnesium Oxide 400 mg PO DAILY 11/09/16 11/09/16 History Magnesium Oxide 400 mg PO QAM 11/09/16 11/09/16 History Multivitamin (Centrum) [Centrum 1 tablet PO QAM 11/09/16 11/09/16 History Tab] Omeprazole 40 mg PO QAM 11/09/16 11/09/16 History PARoxetine [Paxil] 20 mg PO QAM 11/09/16 11/09/16 History Potassium Chloride [Klor-Con M20] 20 meq PO BID 11/09/16 11/09/16 History Solifenacin [Vesicare] 5 mg PO QAM 11/09/16 11/09/16 History amLODIPine [Norvasc] 10 mg PO QAM 11/09/16 11/09/16 History rOPINIRole [Requip] 0.25 mg PO TID 11/09/16 11/09/16 History sitaGLIPtin [Januvia] 100 mg PO DAILY 11/09/16 11/09/16 History Allergies/Adverse Reactions: Allergies Allergy/AdvReac Type Severity Reaction Status Date / Time meperidine [From Demerol] Allergy Intermediate RASH Verified 11/09/16 19:15 ROS unobtainable: other (She is drowsy continues to dose off) Medical,Surgical,& Family Hx - Medical History Cardio: History of: CAD, Hypertension Psychological: History of: Depression Neurology: History of: Dementia HEENT: History of: Ear Problem ([place]) Endocrine: History of: Diabetes Mellitus (NIDDM), Thyroid Disorder Respiratory: History of: Pneumonia Genitourinary: History of: Bladder Problem (incontinent) Musculoskeletal: History of: Musculoskeletal Problems (arthritis) - Surgical History Cardiac Surgeries: Sugical HX of: Cardiac Catheterization (2012) Abdominal Surgeries: Surgical HX of: Appendectomy, Cholecystectomy Reproductive Surgeries: Surgical HX of;: Hysterectomy - Family History Family History: Reports;: Family Cancer (mother- breast), Family Heart Disease ( father), Family Hypertension (mother, father) - Social History Smoking Status: Former smoker (Quit 25 years ago) Have you smoked in the last 12 months: No Frequency of Alcohol Use: None Type of Drug Use: None Marital Status: Lives With:: Spouse Functional capacity: uses cane/walker Physical Examination Vital Signs Temp Pulse Resp BP Pulse Ox 100.0 F H 85 16 147/64 95 11/09/16 19:15 11/09/16 19:15 11/09/16 19:15 11/09/16 19:15 11/09/16 19:15 General: Present: Appears Well, No Apparent Distress HEENT: Present: PERRL, Mucus Membranes Moist Neck: Present: Supple Neck, Midline Trachea Cardiac: Present: Reg Rate and Rhythm, Bradycardia Lungs: Present: Normal Breath Sounds, Oxygen (Via nasal cannula), No Wheeze, Rales, Rhonchi Neuro: Absent: Resting Tremor, Essential Tremor Abdomen: Present: Soft, Active Bowel Sounds, Non-Tender. Absent: Distended Skin: Present: Wound (Right ankle, covered with Band-Aid). Absent: Rash, Suspicious Lesions Musculoskeletal: Present: Decreased Range of Motion Gait: Present: Poor Gait Extremities: Present: No Edema, Normal Upper Extr. Pulses, Normal Lower Extr. Pulses Result/EKG - Labs CBC & BMP: 11/12/16 05:17 11/12/16 04:11 Lab Results: I have reviewed the past 24 hour labs Labs: Laboratory Results - last 24 hr 11/11/16 11/11/16 11/11/16 07:09 11:16 15:59 WBC RBC Hgb Hct MCV MCH MCHC RDW Plt Count MPV Neut % (Auto) Lymph % (Auto) [place] % (Auto) Eos % (Auto) Baso % (Auto) Neut # (Auto) Lymph # (Auto) [place] # (Auto) Eos # (Auto) Baso # (Auto) Immature Gran % Nucleated RBC % Immature Gran # Nucleated RBCs # Sodium Potassium Chloride Carbon Dioxide Anion Gap BUN Creatinine GFR Calculation BUN/Creatinine Ratio Glucose POC Glucose 193 H 159 H 172 H Calculated Osmolality Calcium Total Creatine Kinase CK-MB (CK-2) Troponin I 11/11/16 11/12/16 11/12/16 21:16 02:51 04:11 WBC RBC Hgb Hct MCV MCH MCHC RDW Plt Count MPV Neut % (Auto) Lymph % (Auto) [place] % (Auto) Eos % (Auto) Baso % (Auto) Neut # (Auto) Lymph # (Auto) [place] # (Auto) Eos # (Auto) Baso # (Auto) Immature Gran % Nucleated RBC % Immature Gran # Nucleated RBCs # Sodium 139 Potassium 3.9 Chloride 101 Carbon Dioxide 26 Anion Gap 15.9 H BUN 47 H Creatinine 2.20 H GFR Calculation 20 BUN/Creatinine Ratio 21.00 H Glucose 119 H POC Glucose 161 H 115 H Calculated Osmolality 289.5 Calcium 8.9 Total Creatine Kinase CK-MB (CK-2) Troponin I 11/12/16 11/12/16 11/12/16 04:11 05:17 09:01 WBC 16.8 H RBC 4.15 Hgb 11.2 L Hct 34.5 L MCV 83.1 L MCH 27 MCHC 32.5 RDW 14.3 Plt Count 257 MPV 10.6 Neut % (Auto) 83.9 H Lymph % (Auto) 7.8 L [place] % (Auto) 6.8 Eos % (Auto) 0.5 Baso % (Auto) 0.2 Neut # (Auto) 14.1 H Lymph # (Auto) 1.3 L [place] # (Auto) 1.1 H Eos # (Auto) 0.1 Baso # (Auto) 0.0 Immature Gran % 0.8 Nucleated RBC % 0.0 Immature Gran # 0.14 Nucleated RBCs # 0.00 Sodium Potassium Chloride Carbon Dioxide Anion Gap BUN Creatinine GFR Calculation BUN/Creatinine Ratio Glucose POC Glucose Calculated Osmolality Calcium Total Creatine Kinase 104 D 70 D CK-MB (CK-2) 2.6 1.2 Troponin I 0.336 H D 0.373 H - Diagnostic Findings Procedure: Chest x-ray: report reviewed by me - EKG EKG results: interpreted by me EKG shows: bradycardia, sinus rhythm IShanda Thomas, MD, personally performed the services described in this documentation, ascribed by Iris Tay RN in my presence, and it is both accurate and complete [id number] .
[2016-11-12] MEDS ORDERED: FUROSEMIDE 40 MG/4 ML VIAL IV ONE (17:21)
[2016-11-12 18:57] LABS: Troponin I Only 0.325 NG/ML (0.00-0.045)
[2016-11-12] MEDS: DONEPEZIL 10 MG TABLET PO SCH (20:27)
[2016-11-13] MEDS: ALBUTEROL 2.5 MG/3 ML NEB RESP TX SCH ×6 (03:56→23:58)
[2016-11-13 04:05] LABS: Basophils # 0.1 10*3/uL (0.0-0.2); Basophils % 0.8 % (0.0-0.8); Eosinophils # 0.2 10*3/uL (0.0-0.87); Eosinophils % 2.8 % (0.00-10.9); Hematocrit 34.5 VOL% (35.7-47.0); Hemoglobin 11.3 GM/DL (12.0-16.0); Immature Granulocytes % 1.3 %; Lymphocytes # 2.2 10*3/uL (1.4-4.0); Lymphocytes % 26.9 % (21.3-54.2); Mean Corpuscular HGB Conc 32.8 GM/DL (32-36); Mean Corpuscular Hemoglobin 27 PG (27-34); Mean Corpuscular Volume 83.3 FL (87-102); Mean Platelet Volume 10.2 FL (9.6-12.0); Monocytes # 0.7 10*3/uL (0.11-0.8); Monocytes % 8.4 % (1.7-12.7); Neutrophils # 4.8 10*3/uL (1.4-7.4); Neutrophils % 59.8 % (38.7-73.9); Platelet Count 248 T/CUMM (130-400); Red Blood Count 4.14 MC/CUMM (3.8-5.5); Red Cell Distribution Width 14.4 % (9.3-17.3)
[2016-11-13 04:38] LABS: Calcium 8.7 MG/DL (8.5-10.1); Magnesium 2.5 MG/DL (1.8-2.4); Osmolality,Calculated 288.5 MOS/KG (273-304); Potassium 3.8 MMOL/L (3.5-5.1)
[2016-11-13 04:47] LABS: Troponin I Only 0.287 NG/ML (0.00-0.045)
[2016-11-13 04:48] LABS: Calcium 8.8 MG/DL (8.5-10.1); Osmolality,Calculated 290.4 MOS/KG (273-304); Potassium 3.7 MMOL/L (3.5-5.1)
[2016-11-13] MEDS: LEVOTHYROXINE 50 MCG TABLET PO SCH (06:30)
--- NOTE | 2016-11-13 07:08 | EKG Report ---
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
[2016-11-13] MEDS: GLIMEPIRIDE 4 MG TABLET PO SCH ×2 (08:53→22:08)
[2016-11-13] MEDS: sitaGLIPtin 100 MG TABLET PO SCH (08:53)
[2016-11-13] MEDS: SOLIFENACIN 5 MG TABLET PO SCH (09:08)
[2016-11-13] MEDS: MULTIVITAMIN (CENTRUM) TABLET PO SCH (09:08)
[2016-11-13] MEDS: ASPIRIN EC 81 MG TABLET PO SCH (09:08)
[2016-11-13] MEDS: CLOPIDOGREL 75 MG TABLET PO SCH (09:08)
[2016-11-13] MEDS: rOPINIRole 0.25 MG TABLET PO SCH ×3 (09:08→22:08)
[2016-11-13] MEDS: LOSARTAN 50 MG TABLET PO SCH (09:08)
[2016-11-13] MEDS: GABAPENTIN 400 MG CAPSULE PO SCH ×3 (09:08→22:08)
[2016-11-13] MEDS: PANTOPRAZOLE 40 MG TABLET PO SCH (09:08)
[2016-11-13] MEDS: PARoxetine 20 MG TABLET PO SCH (09:09)
[2016-11-13] MEDS: CARVEDILOL 6.25 MG TABLET PO SCH ×2 (09:09→22:08)
[2016-11-13] MEDS: POTASSIUM CHLORIDE 20 MEQ TABLET PO SCH ×2 (09:10→22:08)
[2016-11-13] MEDS: LORATADINE 10 MG TABLET PO SCH (09:10)
[2016-11-13] MEDS: FUROSEMIDE 40 MG TABLET PO SCH ×2 (09:10→17:16)
[2016-11-13] MEDS: cefTRIAXone 1,000 MG in SODIUM CHLORIDE 0.9% 100 ML IV SCH (09:10)
[2016-11-13] MEDS: MAGNESIUM OXIDE 400 MG TABLET PO SCH (09:10)
[2016-11-13] MEDS: DOCUSATE SODIUM 100 MG CAPSULE PO SCH ×2 (09:10→22:07)
[2016-11-13] MEDS: amLODIPine 10 MG TABLET PO SCH (09:11)
--- NOTE | 2016-11-13 09:46 | Internal Med Progress Note ---
Assessment and Plan (1) Bacteremia Status: Acute Assessment and plan: 86-year-old female admitted to acute care. * Bacteremia. Continue current antibiotics. She is hemodynamically stable without any fever * CRF. Continue current treatment * CHF. Her echocardiogram was noted. She is on IV Lasix. * DC Kahn catheter. * Start PT and OT * Hypertension. Blood pressure is stable * Diabetes. Stable. Will decrease the dose of Januvia * Continue present management. Current Visit: Yes (2) Diabetes Status: Chronic Current Visit: Yes (3) Hypertension Status: Chronic Current Visit: Yes (4) Hypothyroidism Status: Acute Current Visit: Yes (5) Chronic renal failure, stage 3 (moderate) Status: Chronic Current Visit: Yes (6) UTI (urinary tract infection) Status: Acute Current Visit: Yes Internal Medicine - PN: Subj Interval history: Patient is feeling much better this morning. She is sitting up in the bed eating her breakfast. Her breathing has improved. She denies any chest pain or shortness of breath. Exam (Progress Note) - Constitutional Vitals: Period Temp Pulse Resp BP Sys/Dennison Pulse Ox Last 24 Hr 96.2 F-98.6 F 55-62 10-20 137-184/50-86 90-100 Exam: Examination: GENERAL: NAD. NECK: Neck is supple. CVS: Regular rate and rhythm. S1 and S2 are normal. RESPIRATORY: Lungs are clear. ABDOMEN: Soft and nontender. EXT: No edema. 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 Motor strength 4/5 SKIN: Warm and dry. Results - Labs CBC & BMP: 11/13/16 03:49 11/13/16 03:49 Lab Results: I have reviewed the past 24 hour labs
[2016-11-13] MEDS: ENOXAPARIN 30 MG/0.3 ML SYRINGE SUBCUT SCH (13:44)
[2016-11-13] MEDS: DIGOXIN 0.125 MG TABLET PO SCH (13:44)
--- NOTE | 2016-11-13 14:55 | Cardiology Progress Note ---
<Mulu Delgado - Last Filed: 11/13/16 14:41> Assessment and Plan (1) Elevated troponin Status: Acute Assessment and plan: SEE PLAN OF CARE LISTED BELOW Current Visit: Yes (2) Bacteremia Status: Acute Assessment and plan: SEE PLAN OF CARE LISTED BELOW Current Visit: Yes (3) UTI (urinary tract infection) Status: Acute Assessment and plan: SEE PLAN OF CARE LISTED BELOW Current Visit: Yes (4) CAD (coronary artery disease) Status: Chronic Assessment and plan: SEE PLAN OF CARE LISTED BELOW Current Visit: Yes Qualifiers: Coronary Disease-Associated Artery/Lesion type: [place] artery [place] vs. transplanted heart: [place] heart (5) Chronic renal failure, stage 3 (moderate) Status: Chronic Assessment and plan: SEE PLAN OF CARE LISTED BELOW Current Visit: Yes (6) Diabetes Status: Chronic Assessment and plan: SEE PLAN OF CARE LISTED BELOW Current Visit: Yes (7) Hypertension Status: Chronic Assessment and plan: SEE PLAN OF CARE LISTED BELOW Current Visit: Yes (8) GERD (gastroesophageal reflux disease) Status: Chronic Assessment and plan: SEE PLAN OF CARE LISTED BELOW Current Visit: Yes (9) Dyslipidemia Status: Chronic Assessment and plan: SEE PLAN OF CARE LISTED BELOW Current Visit: Yes Cardiology - PN: Subj Interval history: Admissions Advisor: Dr. Keith in the remote past SUMMARY - Ms. Chapa is a 86 year old female who has been seen by Dr. Keith in the remote past. She had stent to mid LAD 12/01/[address] Keith. She has a history of CAD, dyslipidemia, hypertension, GERD, chronic renal failure, and NIDDM. Patient was admitted with weakness, nausea and shortness of breath. She has Klebsiella bacteremia and acute UTI. Chest x-ray this admission did reveal mild cardiomegaly and early congestive heart failure. Trivial troponin of 0.336 and 0.373 noted. However, this is in the setting of chronic renal insufficiency. BUN of 47 and creatinine of 2.2. Echocardiogram this admission revealed ejection fraction of 45-50% with mild dilated left atrium, aortic sclerosis, mild TR with pulmonary artery pressure 35-40 mmHg. During her hospitalization, her troponin was noted to be mildly elevated. Because of this , cardiac chest been consulted to further evaluate. NOVEMBER 13, 2016 UPDATE - Patient was seen and examined on the telemetry unit. She has done well overnight and is without complaints this morning. She denies chest pain, heaviness and tightness. Reports that her breathing is significantly better after IV dose of Lasix yesterday. Creatinine is 2.2 today with BUN of 50. Troponin continues to be flat in nature. Today noted to be 0.287. She did have episode of hypoglycemia this morning. Glucose noted to be 53. This is now resolved. Blood pressure is suboptimally controlled. Hydralazine has been added to her medication regimen. I will discuss with Dr. Land and await his additional recommendations. ASSESSMENT/PLAN : 1. ELEVATED TROPONIN - This does not appear to be significant as her troponins have been flat in nature. Her troponin also was noted to be elevated in the setting of chronic renal insufficiency, creatinine of 2.2. Patient has been without chest pain, heaviness or tightness. However, patient does have history of coronary artery disease. Therefore, aspirin, Plavix, beta- stephanie and lipid-lowering agent will be continued. 2. CORONARY ARTERY DISEASE - This appears to be clinically stable at present. Patient is status post mid LAD stent in [address] Keith. Continue Plavix, aspirin, beta-stephanie and lipid-lowering agent. 3. BACTEREMIA - Continue IV antibiotics. Management per attending. 4. UTI - Continue antibiotics. Management per attending. 5. DYSLIPIDEMIA - Continue lipid-lowering agent. I will order lipid panel. 6. HYPERTENSION - Suboptimally controlled. Hydralazine has been added to patient's medication regimen. Will further adjust as needed throughout her hospitalization. 7. GERD - Continue PPI. 8. DIABETES - Stable. Defer management of this to attending. 9. CHRONIC RENAL FAILURE, STAGE THREE - Will monitor with daily BMP. If creatinine rises, will consider decreasing or discontinuing ARB. Will defer management of this to attending. Further plan and addendum to follow per Dr. Land. Exam (Progress Note) - Constitutional Vitals: Period Temp Pulse Resp BP Sys/Dennison Pulse Ox Last 24 Hr 96.2 F-98.4 F 55-61 12-20 137-184/50-105 89-100 Exam: General: Appears well with no apparent distress. Pleasant and cooperative. Appears comfortable. HEENT: PERRL, normocephalic, atraumatic. Mucous membranes moist. No jaundice noted. Conjunctiva moist and clear, sclerae anicteric Neck: No JVD/HJR, no thyromegaly or lymphadenopathy noted. No carotid bruit appreciated Cardiac: Regular rate and rhythm. Bradycardia. No murmur rub or gallop. Lungs: Clear to auscultation without accessory muscle use to assist the respiratory pattern. Not requiring oxygen. Abdomen: Soft, bowel sounds normoactive. Nontender and nondistended. No abdominal bruit or thrill noted. No masses noted. Extremities: No clubbing, cyanosis noted. No edema noted. Upper extremity pulses 2+. Lower extremity pulses 2+. Capillary refill less than 3 seconds. Skin: Wound to right ankle with dressing clean dry and intact. Neuro: Awake, alert and oriented 3. No essential tremor is appreciated. Result/EKG - Labs CBC & BMP: 11/13/16 03:49 11/13/16 03:49 Lab Results: I have reviewed the past 24 hour labs Labs: Laboratory Results - last 24 hr 11/12/16 11/12/16 11/13/16 18:08 19:40 03:49 WBC 8.0 D RBC 4.14 Hgb 11.3 L Hct 34.5 L MCV 83.3 L MCH 27 MCHC 32.8 RDW 14.4 Plt Count 248 MPV 10.2 Neut % (Auto) 59.8 Lymph % (Auto) 26.9 [place] % (Auto) 8.4 Eos % (Auto) 2.8 Baso % (Auto) 0.8 Neut # (Auto) 4.8 Lymph # (Auto) 2.2 [place] # (Auto) 0.7 Eos # (Auto) 0.2 Baso # (Auto) 0.1 Immature Gran % 1.3 Nucleated RBC % 0.0 Immature Gran # 0.10 Nucleated RBCs # 0.00 Sodium Potassium Chloride Carbon Dioxide Anion Gap BUN Creatinine GFR Calculation BUN/Creatinine Ratio Glucose POC Glucose 133 H Calculated Osmolality Calcium Magnesium Total Creatine Kinase 53 CK-MB (CK-2) 1.3 Troponin I 0.325 H B-Natriuretic Peptide 11/13/16 11/13/16 11/13/16 03:49 03:49 03:49 WBC RBC Hgb Hct MCV MCH MCHC RDW Plt Count MPV Neut % (Auto) Lymph % (Auto) [place] % (Auto) Eos % (Auto) Baso % (Auto) Neut # (Auto) Lymph # (Auto) [place] # (Auto) Eos # (Auto) Baso # (Auto) Immature Gran % Nucleated RBC % Immature Gran # Nucleated RBCs # Sodium 140 139 Potassium 3.7 3.8 Chloride 100 100 Carbon Dioxide 29 29 Anion Gap 14.7 13.8 BUN 48 H 50 H Creatinine 2.20 H 2.20 H GFR Calculation 20 20 BUN/Creatinine Ratio 21.00 H 22.00 H Glucose 80 79 POC Glucose Calculated Osmolality 290.4 288.5 Calcium 8.8 8.7 Magnesium 2.5 H Total Creatine Kinase 43 CK-MB (CK-2) 1.1 Troponin I 0.287 H B-Natriuretic Peptide 11/13/16 11/13/16 11/13/16 03:49 07:56 09:07 WBC RBC Hgb Hct MCV MCH MCHC RDW Plt Count MPV Neut % (Auto) Lymph % (Auto) [place] % (Auto) Eos % (Auto) Baso % (Auto) Neut # (Auto) Lymph # (Auto) [place] # (Auto) Eos # (Auto) Baso # (Auto) Immature Gran % Nucleated RBC % Immature Gran # Nucleated RBCs # Sodium Potassium Chloride Carbon Dioxide Anion Gap BUN Creatinine GFR Calculation BUN/Creatinine Ratio Glucose POC Glucose 53 L 90 Calculated Osmolality Calcium Magnesium Total Creatine Kinase CK-MB (CK-2) Troponin I B-Natriuretic Peptide 81 <Olaf Land - Last Filed: 11/13/16 16:29> Assessment and Plan (1) CAD (coronary artery disease) Status: Chronic Current Visit: Yes Qualifiers: Coronary Disease-Associated Artery/Lesion type: [place] artery [place] vs. transplanted heart: [place] heart (2) Bacteremia Status: Acute Current Visit: Yes (3) Chronic renal failure, stage 3 (moderate) Status: Chronic Current Visit: Yes (4) Diabetes Status: Chronic Current Visit: Yes (5) Hypertension Status: Chronic Current Visit: Yes (6) Elevated troponin Status: Acute Current Visit: Yes Cardiology - PN: Subj Interval history: Cardiology addendum. Patient examined chart reviewed discussed with nurse Mulu Delgado RN. Klebsiella bacteremia and UTI. No temperature. Denies chest pain or shortness of breath. Echo showed ejection fraction of 45-50% with mildly left atrium, aortic valve sclerosis, normal RV function, mild TR PA pressure 35 Trivial troponin 0.361 and 0.325 secondary to mild chronic renal insufficiency. Creatinine 2.2 Blood pressure running a little high. Plan IV antibiotics Hydralazine added 10 mg twice daily Watch rhythm and blood pressure Exam (Progress Note) - Constitutional Vitals: Period Temp Pulse Resp BP Sys/Dennison Pulse Ox Last 24 Hr 96.2 F-97.9 F 55-61 12-20 137-184/57-105 89-100 Result/EKG - Labs CBC & BMP: 11/13/16 03:49 11/13/16 03:49 Labs: Laboratory Results - last 24 hr 11/12/16 11/12/16 11/13/16 18:08 19:40 03:49 WBC 8.0 D RBC 4.14 Hgb 11.3 L Hct 34.5 L MCV 83.3 L MCH 27 MCHC 32.8 RDW 14.4 Plt Count 248 MPV 10.2 Neut % (Auto) 59.8 Lymph % (Auto) 26.9 [place] % (Auto) 8.4 Eos % (Auto) 2.8 Baso % (Auto) 0.8 Neut # (Auto) 4.8 Lymph # (Auto) 2.2 [place] # (Auto) 0.7 Eos # (Auto) 0.2 Baso # (Auto) 0.1 Immature Gran % 1.3 Nucleated RBC % 0.0 Immature Gran # 0.10 Nucleated RBCs # 0.00 Sodium Potassium Chloride Carbon Dioxide Anion Gap BUN Creatinine GFR Calculation BUN/Creatinine Ratio Glucose POC Glucose 133 H Calculated Osmolality Calcium Magnesium Total Creatine Kinase 53 CK-MB (CK-2) 1.3 Troponin I 0.325 H B-Natriuretic Peptide 11/13/16 11/13/16 11/13/16 03:49 03:49 03:49 WBC RBC Hgb Hct MCV MCH MCHC RDW Plt Count MPV Neut % (Auto) Lymph % (Auto) [place] % (Auto) Eos % (Auto) Baso % (Auto) Neut # (Auto) Lymph # (Auto) [place] # (Auto) Eos # (Auto) Baso # (Auto) Immature Gran % Nucleated RBC % Immature Gran # Nucleated RBCs # Sodium 140 139 Potassium 3.7 3.8 Chloride 100 100 Carbon Dioxide 29 29 Anion Gap 14.7 13.8 BUN 48 H 50 H Creatinine 2.20 H 2.20 H GFR Calculation 20 20 BUN/Creatinine Ratio 21.00 H 22.00 H Glucose 80 79 POC Glucose Calculated Osmolality 290.4 288.5 Calcium 8.8 8.7 Magnesium 2.5 H Total Creatine Kinase 43 CK-MB (CK-2) 1.1 Troponin I 0.287 H B-Natriuretic Peptide 11/13/16 11/13/16 11/13/16 03:49 07:56 09:07 WBC RBC Hgb Hct MCV MCH MCHC RDW Plt Count MPV Neut % (Auto) Lymph % (Auto) [place] % (Auto) Eos % (Auto) Baso % (Auto) Neut # (Auto) Lymph # (Auto) [place] # (Auto) Eos # (Auto) Baso # (Auto) Immature Gran % Nucleated RBC % Immature Gran # Nucleated RBCs # Sodium Potassium Chloride Carbon Dioxide Anion Gap BUN Creatinine GFR Calculation BUN/Creatinine Ratio Glucose POC Glucose 53 L 90 Calculated Osmolality Calcium Magnesium Total Creatine Kinase CK-MB (CK-2) Troponin I B-Natriuretic Peptide 81
[2016-11-13] MEDS: hydrALAZINE 10 MG TABLET PO SCH ×2 (17:16→22:08)
[2016-11-13] MEDS: CIPROFLOXACIN INJ 400 MG in PREMIX 1 EACH IV SCH (17:53)
[2016-11-13] MEDS: ATORVASTATIN 20 MG TABLET PO SCH (22:07)
[2016-11-13] MEDS: DONEPEZIL 10 MG TABLET PO SCH (22:08)
[2016-11-14] MEDS: ALBUTEROL 2.5 MG/3 ML NEB RESP TX SCH ×6 (03:32→23:57)
[2016-11-14 05:54] LABS: Basophils # 0.1 10*3/uL (0.0-0.2); Basophils % 1.1 % (0.0-0.8); Eosinophils # 0.4 10*3/uL (0.0-0.87); Eosinophils % 4.6 % (0.00-10.9); Hematocrit 36.8 VOL% (35.7-47.0); Immature Granulocytes % 3.8 %; Immature Granulocytes Absolute 0.35 #; Lymphocytes # 2.3 10*3/uL (1.4-4.0); Mean Corpuscular HGB Conc 32.6 GM/DL (32-36); Mean Corpuscular Hemoglobin 27 PG (27-34); Mean Corpuscular Volume 82.5 FL (87-102); Mean Platelet Volume 10.2 FL (9.6-12.0); Monocytes # 0.8 10*3/uL (0.11-0.8); Monocytes % 8.7 % (1.7-12.7); Neutrophils # 5.2 10*3/uL (1.4-7.4); Neutrophils % 56.8 % (38.7-73.9); Platelet Count 286 T/CUMM (130-400); Red Blood Count 4.46 MC/CUMM (3.8-5.5); White Blood Count 9.2 T/CUMM (4-12)
[2016-11-14 06:24] LABS: Calcium 9.2 MG/DL (8.5-10.1); Magnesium 2.4 MG/DL (1.8-2.4); Potassium 3.9 MMOL/L (3.5-5.1)
[2016-11-14 06:28] LABS: Risk Ratio 3.64; VLDL CHOLESTEROL 42.2 MG/DL
[2016-11-14] MEDS: LEVOTHYROXINE 50 MCG TABLET PO SCH (06:33)
--- NOTE | 2016-11-14 08:07 | XRay Report ---
Exam: XR chest 2V Date: 11/14/2016 4:00 AM Indication: Follow-up CHF Comparison: 11/12/2016 Technical: PA lateral Findings: Cardiomegaly is present with ASVD. Tiny low volume left effusion and right effusion present. External cardiac leads are present. The mediastinum and bony structures are otherwise intact. Impression: 1. Cardiomegaly with tiny low-volume effusions and persistent findings of minimal CHF PROCEDURE INTERPRETED AT [facility] DEPARTMENT OF RADIOLOGY Final Report Signed by: Dr. Rufus Gramajo
--- NOTE | 2016-11-14 08:27 | Internal Med Progress Note ---
Assessment and Plan (1) Bacteremia Status: Acute Assessment and plan: 86-year-old female admitted to acute care. * Bacteremia. Continue current antibiotics. Will repeat blood cultures * CRF. Continue current treatment * CHF. Lasix was increased * DC Kahn catheter. * Start PT and OT * Hypertension. Blood pressure is stable * Diabetes. Stable. Will decrease the dose of Januvia * Continue present management. Current Visit: Yes (2) Diabetes Status: Chronic Current Visit: Yes (3) Hypertension Status: Chronic Current Visit: Yes (4) Hypothyroidism Status: Acute Current Visit: Yes (5) Chronic renal failure, stage 3 (moderate) Status: Chronic Current Visit: Yes (6) UTI (urinary tract infection) Status: Acute Current Visit: Yes Internal Medicine - PN: Subj Interval history: Patient is feeling much better this morning. She walked with physical therapy yesterday. She denies any complaints Exam (Progress Note) - Constitutional Vitals: Period Temp Pulse Resp BP Sys/Dennison Pulse Ox Last 24 Hr 97.5 F-98.5 F 55-69 12-20 156-210/62-105 89-99 Exam: Examination: GENERAL: NAD. NECK: Neck is supple. CVS: Regular rate and rhythm. S1 and S2 are normal. RESPIRATORY: Lungs are clear. ABDOMEN: Soft and nontender. EXT: No edema. 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 Motor strength 4/5 SKIN: Warm and dry. Results - Labs CBC & BMP: 11/14/16 05:42 11/14/16 05:42 Lab Results: I have reviewed the past 24 hour labs
[2016-11-14] MEDS: GABAPENTIN 400 MG CAPSULE PO SCH ×3 (09:07→21:50)
[2016-11-14] MEDS: rOPINIRole 0.25 MG TABLET PO SCH ×3 (09:07→21:50)
[2016-11-14] MEDS: LOSARTAN 50 MG TABLET PO SCH (09:07)
[2016-11-14] MEDS: ASPIRIN EC 81 MG TABLET PO SCH (09:07)
[2016-11-14] MEDS: MULTIVITAMIN (CENTRUM) TABLET PO SCH (09:07)
[2016-11-14] MEDS: hydrALAZINE 10 MG TABLET PO SCH (09:07)
[2016-11-14] MEDS: FUROSEMIDE 40 MG TABLET PO SCH ×2 (09:08→15:34)
[2016-11-14] MEDS: CARVEDILOL 6.25 MG TABLET PO SCH ×2 (09:08→21:52)
[2016-11-14] MEDS: PANTOPRAZOLE 40 MG TABLET PO SCH (09:08)
[2016-11-14] MEDS: POTASSIUM CHLORIDE 20 MEQ TABLET PO SCH ×2 (09:08→21:50)
[2016-11-14] MEDS: MAGNESIUM OXIDE 400 MG TABLET PO SCH (09:08)
[2016-11-14] MEDS: DOCUSATE SODIUM 100 MG CAPSULE PO SCH ×2 (09:08→21:50)
[2016-11-14] MEDS: amLODIPine 10 MG TABLET PO SCH (09:08)
[2016-11-14] MEDS: CLOPIDOGREL 75 MG TABLET PO SCH (09:08)
[2016-11-14] MEDS: SOLIFENACIN 5 MG TABLET PO SCH (09:08)
[2016-11-14] MEDS: sitaGLIPtin 100 MG TABLET PO SCH (09:08)
[2016-11-14] MEDS: GLIMEPIRIDE 4 MG TABLET PO SCH ×2 (09:08→21:50)
[2016-11-14] MEDS: PARoxetine 20 MG TABLET PO SCH (09:09)
[2016-11-14] MEDS: LORATADINE 10 MG TABLET PO SCH (09:09)
[2016-11-14] MEDS: cefTRIAXone 1,000 MG in SODIUM CHLORIDE 0.9% 100 ML IV SCH (09:09)
[2016-11-14] MEDS: CIPROFLOXACIN INJ 400 MG in PREMIX 1 EACH IV SCH (10:26)
--- NOTE | 2016-11-14 10:47 | Cardiology Progress Note ---
<Mulu Delgado - Last Filed: 11/14/16 10:47> Assessment and Plan (1) Elevated troponin Status: Acute Assessment and plan: SEE PLAN OF CARE LISTED BELOW Current Visit: Yes (2) Bacteremia Status: Acute Assessment and plan: SEE PLAN OF CARE LISTED BELOW Current Visit: Yes (3) UTI (urinary tract infection) Status: Acute Assessment and plan: SEE PLAN OF CARE LISTED BELOW Current Visit: Yes (4) CAD (coronary artery disease) Status: Chronic Assessment and plan: SEE PLAN OF CARE LISTED BELOW Current Visit: Yes Qualifiers: Coronary Disease-Associated Artery/Lesion type: [place] artery [place] vs. transplanted heart: [place] heart (5) Chronic renal failure, stage 3 (moderate) Status: Chronic Assessment and plan: SEE PLAN OF CARE LISTED BELOW Current Visit: Yes (6) Diabetes Status: Chronic Assessment and plan: SEE PLAN OF CARE LISTED BELOW Current Visit: Yes (7) Hypertension Status: Chronic Assessment and plan: SEE PLAN OF CARE LISTED BELOW Current Visit: Yes (8) GERD (gastroesophageal reflux disease) Status: Chronic Assessment and plan: SEE PLAN OF CARE LISTED BELOW Current Visit: Yes (9) Dyslipidemia Status: Chronic Assessment and plan: SEE PLAN OF CARE LISTED BELOW Current Visit: Yes (10) Cardiomyopathy Status: Chronic Assessment and plan: SEE PLAN OF CARE LISTED BELOW Current Visit: Yes Qualifiers: Cardiomyopathy type: ischemic Qualified Code(s): I25.5 - Ischemic cardiomyopathy Cardiology - PN: Subj Interval history: Fiscal Services Director: Dr. Keith in the remote past SUMMARY - Ms. Chapa is a 86 year old female who has been seen by Dr. Keith in the remote past. She had stent to mid LAD 12/01/[address] Keith. She has a history of CAD, dyslipidemia, hypertension, GERD, chronic renal failure, and NIDDM. Patient was admitted with weakness, nausea and shortness of breath. She has Klebsiella bacteremia and acute UTI. Chest x-ray this admission did reveal mild cardiomegaly and early congestive heart failure. Trivial troponin of 0.336 and 0.373 noted. However, this is in the setting of chronic renal insufficiency. BUN of 47 and creatinine of 2.2. Echocardiogram this admission revealed ejection fraction of 45-50% with mild dilated left atrium, aortic sclerosis, mild TR with pulmonary artery pressure 35-40 mmHg. During her hospitalization, her troponin was noted to be mildly elevated. Because of this , cardiac chest been consulted to further evaluate. NOVEMBER 14, 2016 UPDATE - Patient was seen and examined on the telemetry unit. She has done well overnight and is without complaints this morning. Afebrile. She denies chest pain, heaviness and tightness. Also denies shortness of breath. Creatinine is unchanged this morning at 2.2 with a BUN of 47. Blood pressure continues to be suboptimally controlled this morning. Hydralazine was increased to 25 mg twice daily. Will further adjust as needed throughout her hospitalization. No further episodes of hypoglycemia noted. Lipid panel reviewed. Hypertriglyceridemia noted. Will add fish oil to medication regimen. 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 Heart rates have been stable in the 60s. I will discuss with Dr. Land and await his additional recommendations. ASSESSMENT/PLAN : 1. TRIVIAL TROPONIN - This does not appear to be significant. Suspect this is related to her chronic renal insufficiency. Creatinine today 2.2 with BUN of 47. Patient continues to deny chest pain, heaviness or tightness. However, patient does have history of coronary artery disease. Therefore, aspirin, Plavix, beta-stephanie and lipid-lowering agent will be continued. 2. CORONARY ARTERY DISEASE - This appears to be clinically stable at present. Patient is status post mid LAD stent in [address] Keith. Continue Plavix, aspirin, beta-stephanie and lipid-lowering agent. 3. BACTEREMIA - Culture revealed Klebsiella pneumoniae and is sensitive to Rocephin and Cipro. Continue current management. 4. UTI - Culture revealed Klebsiella pneumoniae and is sensitive to Rocephin. Continue current treatment. 5. DYSLIPIDEMIA - Continue lipid-lowering agent. Lipid panel was reviewed. LDL at goal- 59. However, patient was noted to have hypertriglyceridemia. We will add fish oil to medication regimen. 6. HYPERTENSION - Suboptimally controlled. Hydralazine was added to patient' s medication regimen yesterday. This has been increased today to 25 mg twice daily. Will further adjust as needed throughout her hospitalization. 7. GERD - Continue PPI. 8. DIABETES - Stable. Defer management of this to attending. 9. CHRONIC RENAL FAILURE, STAGE THREE - Will monitor with daily BMP. If creatinine rises, will consider decreasing or discontinuing ARB. Will defer management of this to attending. 10. MILD CARDIOMYOPATHY, ISCHEMIC - Most recent ejection fraction noted to be 45-50% per echocardiogram this admission. Patient is on adequate cardiomyopathy medication regimen. Continue beta-stephanie, ARB and PO Lasix. Continue to monitor renal function closely with ARB and Lasix. Can consider adding Aldactone in the future if needed. Further plan and addendum to follow per Dr. Land. Exam (Progress Note) - Constitutional Vitals: Period Temp Pulse Resp BP Sys/Dennison Pulse Ox Last 24 Hr 97.5 F-98.5 F 56-69 12-20 156-210/62-105 89-99 Exam: General: Appears well with no apparent distress. Pleasant and cooperative. Appears comfortable. HEENT: PERRL, normocephalic, atraumatic. Mucous membranes moist. No jaundice noted. Conjunctiva moist and clear, sclerae anicteric Neck: No JVD/HJR, no thyromegaly or lymphadenopathy noted. No carotid bruit appreciated Cardiac: Regular rate and rhythm. No murmur rub or gallop. Lungs: Clear to auscultation without accessory muscle use to assist the respiratory pattern. Not requiring oxygen. Abdomen: Soft, bowel sounds normoactive. Nontender and nondistended. No abdominal bruit or thrill noted. No masses noted. Extremities: No clubbing, cyanosis noted. No edema noted. Upper extremity pulses 2+. Lower extremity pulses 2+. Capillary refill less than 3 seconds. Skin: Wound to right ankle with dressing clean dry and intact. Neuro: Awake, alert and oriented 3. No essential tremor is appreciated. Result/EKG - Labs CBC & BMP: 11/14/16 05:42 11/14/16 05:42 Lab Results: I have reviewed the past 24 hour labs Labs: Laboratory Results - last 24 hr 11/13/16 11/13/16 11/13/16 12:02 17:05 21:27 WBC RBC Hgb Hct MCV MCH MCHC RDW Plt Count MPV Neut % (Auto) Lymph % (Auto) [place] % (Auto) Eos % (Auto) Baso % (Auto) Neut # (Auto) Lymph # (Auto) [place] # (Auto) Eos # (Auto) Baso # (Auto) Immature Gran % Nucleated RBC % Immature Gran # Nucleated RBCs # Sodium Potassium Chloride Carbon Dioxide Anion Gap BUN Creatinine GFR Calculation BUN/Creatinine Ratio Glucose POC Glucose 169 H 154 H 192 H Calculated Osmolality Calcium Magnesium Triglycerides Cholesterol LDL Cholesterol VLDL Cholesterol HDL Cholesterol Heart Disease Risk Ratio 11/14/16 11/14/16 11/14/16 05:42 05:42 05:42 WBC 9.2 RBC 4.46 Hgb 12.0 Hct 36.8 MCV 82.5 L MCH 27 MCHC 32.6 RDW 14.0 Plt Count 286 MPV 10.2 Neut % (Auto) 56.8 Lymph % (Auto) 25.0 [place] % (Auto) 8.7 Eos % (Auto) 4.6 Baso % (Auto) 1.1 H Neut # (Auto) 5.2 Lymph # (Auto) 2.3 [place] # (Auto) 0.8 Eos # (Auto) 0.4 Baso # (Auto) 0.1 Immature Gran % 3.8 Nucleated RBC % 0.0 Immature Gran # 0.35 Nucleated RBCs # 0.00 Sodium 136 Potassium 3.9 Chloride 98 Carbon Dioxide 30 Anion Gap 11.9 BUN 47 H Creatinine 2.20 H GFR Calculation 20 BUN/Creatinine Ratio 21.00 H Glucose 149 H POC Glucose Calculated Osmolality 286.0 Calcium 9.2 Magnesium 2.4 Triglycerides 211 H Cholesterol 120 LDL Cholesterol 59.0 VLDL Cholesterol 42.2 HDL Cholesterol 33 L Heart Disease Risk Ratio 3.64 11/14/16 07:53 WBC RBC Hgb Hct MCV MCH MCHC RDW Plt Count MPV Neut % (Auto) Lymph % (Auto) [place] % (Auto) Eos % (Auto) Baso % (Auto) Neut # (Auto) Lymph # (Auto) [place] # (Auto) Eos # (Auto) Baso # (Auto) Immature Gran % Nucleated RBC % Immature Gran # Nucleated RBCs # Sodium Potassium Chloride Carbon Dioxide Anion Gap BUN Creatinine GFR Calculation BUN/Creatinine Ratio Glucose POC Glucose 141 H Calculated Osmolality Calcium Magnesium Triglycerides Cholesterol LDL Cholesterol VLDL Cholesterol HDL Cholesterol Heart Disease Risk Ratio <Olaf Land - Last Filed: 11/14/16 12:52> Assessment and Plan (1) CAD (coronary artery disease) Status: Chronic Current Visit: Yes Qualifiers: Coronary Disease-Associated Artery/Lesion type: [place] artery [place] vs. transplanted heart: [place] heart (2) Bacteremia Status: Acute Current Visit: Yes (3) Chronic renal failure, stage 3 (moderate) Status: Chronic Current Visit: Yes (4) Diabetes Status: Chronic Current Visit: Yes (5) Hypertension Status: Chronic Current Visit: Yes (6) Elevated troponin Status: Acute Current Visit: Yes Cardiology - PN: Subj Interval history: Cardiology addendum. Klebsiella bacteremia No fever or chills. Appetite good. Blood pressure still little high. Regular rhythm soft systolic murmur as before. Decreased breath sounds but clear. No leg edema Plan IV antibiotics Increase hydralazine 50 mg twice daily Exam (Progress Note) - Constitutional Vitals: Period Temp Pulse Resp BP Sys/Dennison Pulse Ox Last 24 Hr 97.5 F-98.5 F 58-69 16-20 156-210/62-91 89-99 Result/EKG - Labs CBC & BMP: 11/14/16 05:42 11/14/16 05:42 Labs: Laboratory Results - last 24 hr 11/13/16 11/13/16 11/13/16 12:02 17:05 21:27 WBC RBC Hgb Hct MCV MCH MCHC RDW Plt Count MPV Neut % (Auto) Lymph % (Auto) [place] % (Auto) Eos % (Auto) Baso % (Auto) Neut # (Auto) Lymph # (Auto) [place] # (Auto) Eos # (Auto) Baso # (Auto) Immature Gran % Nucleated RBC % Immature Gran # Nucleated RBCs # Sodium Potassium Chloride Carbon Dioxide Anion Gap BUN Creatinine GFR Calculation BUN/Creatinine Ratio Glucose POC Glucose 169 H 154 H 192 H Calculated Osmolality Calcium Magnesium Triglycerides Cholesterol LDL Cholesterol VLDL Cholesterol HDL Cholesterol Heart Disease Risk Ratio 11/14/16 11/14/16 11/14/16 05:42 05:42 05:42 WBC 9.2 RBC 4.46 Hgb 12.0 Hct 36.8 MCV 82.5 L MCH 27 MCHC 32.6 RDW 14.0 Plt Count 286 MPV 10.2 Neut % (Auto) 56.8 Lymph % (Auto) 25.0 [place] % (Auto) 8.7 Eos % (Auto) 4.6 Baso % (Auto) 1.1 H Neut # (Auto) 5.2 Lymph # (Auto) 2.3 [place] # (Auto) 0.8 Eos # (Auto) 0.4 Baso # (Auto) 0.1 Immature Gran % 3.8 Nucleated RBC % 0.0 Immature Gran # 0.35 Nucleated RBCs # 0.00 Sodium 136 Potassium 3.9 Chloride 98 Carbon Dioxide 30 Anion Gap 11.9 BUN 47 H Creatinine 2.20 H GFR Calculation 20 BUN/Creatinine Ratio 21.00 H Glucose 149 H POC Glucose Calculated Osmolality 286.0 Calcium 9.2 Magnesium 2.4 Triglycerides 211 H Cholesterol 120 LDL Cholesterol 59.0 VLDL Cholesterol 42.2 HDL Cholesterol 33 L Heart Disease Risk Ratio 3.64 11/14/16 11/14/16 07:53 12:08 WBC RBC Hgb Hct MCV MCH MCHC RDW Plt Count MPV Neut % (Auto) Lymph % (Auto) [place] % (Auto) Eos % (Auto) Baso % (Auto) Neut # (Auto) Lymph # (Auto) [place] # (Auto) Eos # (Auto) Baso # (Auto) Immature Gran % Nucleated RBC % Immature Gran # Nucleated RBCs # Sodium Potassium Chloride Carbon Dioxide Anion Gap BUN Creatinine GFR Calculation BUN/Creatinine Ratio Glucose POC Glucose 141 H 185 H Calculated Osmolality Calcium Magnesium Triglycerides Cholesterol LDL Cholesterol VLDL Cholesterol HDL Cholesterol Heart Disease Risk Ratio
[2016-11-14] MEDS ORDERED: hydrALAZINE 25 MG TABLET PO SCH (10:54)
[2016-11-14] MEDS: ENOXAPARIN 30 MG/0.3 ML SYRINGE SUBCUT SCH (12:41)
[2016-11-14] MEDS: DIGOXIN 0.125 MG TABLET PO SCH (12:41)
[2016-11-14] MEDS: OMEGA 3 ACID ETHYL ESTERS 1 GM CAPSULE PO SCH ×2 (12:41→21:52)
[2016-11-14] MEDS: DONEPEZIL 10 MG TABLET PO SCH (21:50)
[2016-11-14] MEDS: ATORVASTATIN 20 MG TABLET PO SCH (21:51)
[2016-11-15] MEDS: CIPROFLOXACIN INJ 400 MG in PREMIX 1 EACH IV SCH (04:02)
[2016-11-15] MEDS: ALBUTEROL 2.5 MG/3 ML NEB RESP TX SCH ×3 (04:14→11:46)
[2016-11-15 05:05] LABS: Basophils # 0.1 10*3/uL (0.0-0.2); Basophils % 0.7 % (0.0-0.8); Eosinophils # 0.5 10*3/uL (0.0-0.87); Eosinophils % 4.6 % (0.00-10.9); Hematocrit 36.8 VOL% (35.7-47.0); Hemoglobin 11.9 GM/DL (12.0-16.0); Immature Granulocytes % 4.1 %; Immature Granulocytes Absolute 0.46 #; Lymphocytes # 2.6 10*3/uL (1.4-4.0); Lymphocytes % 23.7 % (21.3-54.2); Mean Corpuscular HGB Conc 32.3 GM/DL (32-36); Mean Corpuscular Hemoglobin 27 PG (27-34); Mean Corpuscular Volume 82.5 FL (87-102); Mean Platelet Volume 10.2 FL (9.6-12.0); Monocytes # 0.9 10*3/uL (0.11-0.8); Monocytes % 8.3 % (1.7-12.7); Neutrophils # 6.5 10*3/uL (1.4-7.4); Neutrophils % 58.6 % (38.7-73.9); Platelet Count 322 T/CUMM (130-400); Red Blood Count 4.46 MC/CUMM (3.8-5.5); White Blood Count 11.1 T/CUMM (4-12)
[2016-11-15 05:36] LABS: Calcium 8.5 MG/DL (8.5-10.1); Magnesium 2.4 MG/DL (1.8-2.4); Osmolality,Calculated 287.7 MOS/KG (273-304); Potassium 4.2 MMOL/L (3.5-5.1)
[2016-11-15] MEDS: LEVOTHYROXINE 50 MCG TABLET PO SCH (06:35)
--- NOTE | 2016-11-15 08:36 | Discharge Summary ---
Hospital Course - Hospital Course Hospital Course: 86-year-old female with history of diabetes, hypertension, mild cognitive impairment, hyperlipidemia, coronary artery disease, hypothyroidism who was admitted with weakness and not feeling well. Patient was found to have bacteremia with UTI. She was started on broad-spectrum antibiotics. During the hospital stay she did develop episode of shortness of breath and was transferred to the intensive care unit. She did well she was seen in consultation by cardiology. Patient had mild renal insufficiency. She did grow out Klebsiella pneumonia in her urine and blood. She had staph on her skin. Repeat blood cultures are pending at this time but negative. She has improved and wants to go home. Her antibiotics have been changed to Levaquin which will cover her Klebsiella pneumonia as well as skin infection. She will be discharged to home. I will see her back in office in about 10 days. Her Lasix has been increased to twice a day. I have adjusted her Januvia dose. Discussed with patient and her . Diagnosis - Discharge Diagnosis (1) Bacteremia Status: Acute (2) Diabetes Status: Chronic (3) Hypertension Status: Chronic (4) Hypothyroidism Status: Acute (5) Chronic renal failure, stage 3 (moderate) Status: Chronic (6) UTI (urinary tract infection) Status: Acute Discharge Plan - Discharge Data Disposition: Disch To Home/Self Care Condition at Discharge: Stable Discharge Diet: diabetic diet Activity: resume usual activities as tolerated - Discharge Medications New Levofloxacin Tab [Levaquin Tab] 250 mg PO DAILY #10 tablet sitaGLIPtin [Januvia] 25 mg PO DAILY #0 tablet Furosemide Tab [Lasix Tab] 40 mg PO BID DIURETIC #60 tablet Continue Clopidogrel [Plavix] 75 mg PO QAM Magnesium Oxide 400 mg PO QAM Loratadine Tab [Claritin Tab] 10 mg PO QAM Solifenacin [Vesicare] 5 mg PO QAM Carvedilol 6.25 mg PO BID Potassium Chloride [Klor-Con M20] 20 meq PO BID Atorvastatin [Lipitor] 20 mg PO QAM Losartan Potassium 100 mg PO QAM Gabapentin Cap/Tab [Neurontin Cap/Tab] 400 mg PO TID Donepezil HCl 10 mg PO BEDTIME amLODIPine [Norvasc] 10 mg PO QAM Multivitamin (Centrum) [Centrum Tab] 1 tablet PO QAM rOPINIRole [Requip] 0.25 mg PO TID Digoxin Tab [Lanoxin Tab] 0.125 mg PO DAILY@1300 Glimepiride 4 mg PO BID PARoxetine [Paxil] 20 mg PO QAM Levothyroxine Tab [Synthroid Tab] 50 mcg PO DAILY@0700 Omeprazole 40 mg PO QAM Aspirin EC Tab 81 mg PO QAM Magnesium Oxide 400 mg PO DAILY Discontinued Furosemide Tab [Lasix Tab] 40 mg PO QAM Docusate Sodium Cap [Colace Cap] 100 mg PO DAILY PRN PRN 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 Check CBC and a BMP. Please call in the changes in medications to the pharmacy and the antibiotic Exam - Constitutional Vitals: Period Temp Pulse Resp BP Sys/[place]enn[place] Pulse Ox Last 24 Hr 97.1 F-98.4 F 60-72 16-20 156-192/64-90 95-99 Exam: Examination: GENERAL: NAD. NECK: Neck is supple. CVS: Regular rate and rhythm. S1 and S2 are normal. RESPIRATORY: Lungs are clear. ABDOMEN: Soft and nontender. EXT: No edema. 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 Motor strength 4/5 SKIN: Warm and dry. Healing area on the right lower extremity Discharge Results Procedures and tests throughout hospitalization: Pending Orders 11/14/16 09:47 Blood Culture Stat 11/16/16 04:00 BMP w/ Mg [Basic Metabolic Panel w/Mg] IN AM CBC [Comp Blood Count Auto Diff] IN AM 11/17/16 04:00 BMP w/ Mg [Basic Metabolic Panel w/Mg] IN AM CBC [Comp Blood Count Auto Diff] IN AM 11/18/16 04:00 BMP w/ Mg [Basic Metabolic Panel w/Mg] IN AM CBC [Comp Blood Count Auto Diff] IN AM Labs on day of discharge: Labs from last 24 hours 11/15/16 11/15/16 11/15/16 07:54 03:49 03:49 WBC 11.1 RBC 4.46 Hgb 11.9 L Hct 36.8 MCV 82.5 L MCH 27 MCHC 32.3 RDW 14.0 Plt Count 322 MPV 10.2 Neut % (Auto) 58.6 Lymph % (Auto) 23.7 [place] % (Auto) 8.3 Eos % (Auto) 4.6 Baso % (Auto) 0.7 Neut # (Auto) 6.5 Lymph # (Auto) 2.6 [place] # (Auto) 0.9 H Eos # (Auto) 0.5 Baso # (Auto) 0.1 Immature Gran % 4.1 Nucleated RBC % 0.0 Immature Gran # 0.46 Nucleated RBCs # 0.00 Sodium 138 Potassium 4.2 Chloride 98 Carbon Dioxide 30 Anion Gap 14.2 BUN 48 H Creatinine 2.20 H GFR Calculation 20 BUN/Creatinine Ratio 21.00 H Glucose 105 POC Glucose 130 H Calculated Osmolality 287.7 Calcium 8.5 Magnesium 2.4 11/14/16 11/14/16 11/14/16 15:56 12:08 07:53 WBC RBC Hgb Hct MCV MCH MCHC RDW Plt Count MPV Neut % (Auto) Lymph % (Auto) [place] % (Auto) Eos % (Auto) Baso % (Auto) Neut # (Auto) Lymph # (Auto) [place] # (Auto) Eos # (Auto) Baso # (Auto) Immature Gran % Nucleated RBC % Immature Gran # Nucleated RBCs # Sodium Potassium Chloride Carbon Dioxide Anion Gap BUN Creatinine GFR Calculation BUN/Creatinine Ratio Glucose POC Glucose 174 H 185 H 141 H Calculated Osmolality Calcium Magnesium 11/13/16 11/13/16 11/13/16 21:27 17:05 12:02 WBC RBC Hgb Hct MCV MCH MCHC RDW Plt Count MPV Neut % (Auto) Lymph % (Auto) [place] % (Auto) Eos % (Auto) Baso % (Auto) Neut # (Auto) Lymph # (Auto) [place] # (Auto) Eos # (Auto) Baso # (Auto) Immature Gran % Nucleated RBC % Immature Gran # Nucleated RBCs # Sodium Potassium Chloride Carbon Dioxide Anion Gap BUN Creatinine GFR Calculation BUN/Creatinine Ratio Glucose POC Glucose 192 H 154 H 169 H Calculated Osmolality Calcium Magnesium DS: Provider Date of admission: 11/09/16 20:33 Primary care physician: . No PCP Attending physician on admission: Zafar Mehta MD Consults: 11/09/16 20:33 Consult to Case Mgmt/Social Srvs [CONS] Routine Reason for Case Mgmt/Social Srvs: Discharge Planning 11/12/16 08:07 Consult to Physician [CONS] Routine Comment: Increased troponin Consulting Provider: Cardiology - [facility] Consulting Provider Notified: Yes Consult to Specialist Group: Cardiology Person Notified: ASHLEY Date Notified: 11/12/16 Time Notified: 14:40 11/13/16 09:49 Consult to Occupational Therapy [CONS] Routine Reason for Occupational Therapy: Evaluate and Treat 11/13/16 09:50 Consult to Physical Therapy [CONS] Routine Reason for Physical Therapy: Evaluate and Treat Discharging clinician: Zafar Mehta MD
[2016-11-15] MEDS: SOLIFENACIN 5 MG TABLET PO SCH (09:06)
[2016-11-15] MEDS: LOSARTAN 50 MG TABLET PO SCH (09:06)
[2016-11-15] MEDS: GABAPENTIN 400 MG CAPSULE PO SCH (09:06)
[2016-11-15] MEDS: rOPINIRole 0.25 MG TABLET PO SCH (09:06)
[2016-11-15] MEDS: amLODIPine 10 MG TABLET PO SCH (09:06)
[2016-11-15] MEDS: MULTIVITAMIN (CENTRUM) TABLET PO SCH (09:06)
[2016-11-15] MEDS: ASPIRIN EC 81 MG TABLET PO SCH (09:07)
[2016-11-15] MEDS: MAGNESIUM OXIDE 400 MG TABLET PO SCH (09:07)
[2016-11-15] MEDS: GLIMEPIRIDE 4 MG TABLET PO SCH (09:07)
[2016-11-15] MEDS: CARVEDILOL 6.25 MG TABLET PO SCH (09:07)
[2016-11-15] MEDS: POTASSIUM CHLORIDE 20 MEQ TABLET PO SCH (09:07)
[2016-11-15] MEDS: PARoxetine 20 MG TABLET PO SCH (09:07)
[2016-11-15] MEDS: CLOPIDOGREL 75 MG TABLET PO SCH (09:07)
[2016-11-15] MEDS: PANTOPRAZOLE 40 MG TABLET PO SCH (09:07)
[2016-11-15] MEDS: DOCUSATE SODIUM 100 MG CAPSULE PO SCH (09:07)
[2016-11-15] MEDS: OMEGA 3 ACID ETHYL ESTERS 1 GM CAPSULE PO SCH (09:08)
[2016-11-15] MEDS: sitaGLIPtin 100 MG TABLET PO SCH (09:08)
[2016-11-15] MEDS: FUROSEMIDE 40 MG TABLET PO SCH (09:08)
[2016-11-15] MEDS: LORATADINE 10 MG TABLET PO SCH (09:08)
[2016-11-15] MEDS: cefTRIAXone 1,000 MG in SODIUM CHLORIDE 0.9% 100 ML IV SCH (09:17)
--- NOTE | 2016-11-15 10:36 | Cardiology Progress Note ---
<Mulu Delgado - Last Filed: 11/15/16 10:37> Assessment and Plan (1) Elevated troponin Status: Acute Assessment and plan: SEE PLAN OF CARE LISTED BELOW Current Visit: Yes (2) Bacteremia Status: Acute Assessment and plan: SEE PLAN OF CARE LISTED BELOW Current Visit: Yes (3) UTI (urinary tract infection) Status: Acute Assessment and plan: SEE PLAN OF CARE LISTED BELOW Current Visit: Yes (4) CAD (coronary artery disease) Status: Chronic Assessment and plan: SEE PLAN OF CARE LISTED BELOW Current Visit: Yes Qualifiers: Coronary Disease-Associated Artery/Lesion type: [place] artery [place] vs. transplanted heart: [place] heart (5) Chronic renal failure, stage 3 (moderate) Status: Chronic Assessment and plan: SEE PLAN OF CARE LISTED BELOW Current Visit: Yes (6) Diabetes Status: Chronic Assessment and plan: SEE PLAN OF CARE LISTED BELOW Current Visit: Yes (7) Hypertension Status: Chronic Assessment and plan: SEE PLAN OF CARE LISTED BELOW Current Visit: Yes (8) GERD (gastroesophageal reflux disease) Status: Chronic Assessment and plan: SEE PLAN OF CARE LISTED BELOW Current Visit: Yes (9) Dyslipidemia Status: Chronic Assessment and plan: SEE PLAN OF CARE LISTED BELOW Current Visit: Yes (10) Cardiomyopathy Status: Chronic Assessment and plan: SEE PLAN OF CARE LISTED BELOW Current Visit: Yes Qualifiers: Cardiomyopathy type: ischemic Qualified Code(s): I25.5 - Ischemic cardiomyopathy Cardiology - PN: Subj Interval history: Station Helper: Dr. Land SUMMARY - Ms. Chapa is a 86 year old female who has been seen by Dr. Keith in the remote past. She had stent to mid LAD 12/01/[address] Keith. She has a history of CAD, dyslipidemia, hypertension, GERD, chronic renal failure, and NIDDM. Patient was admitted with weakness, nausea and shortness of breath. She has Klebsiella bacteremia and acute UTI. Chest x-ray this admission did reveal mild cardiomegaly and early congestive heart failure. Trivial troponin of 0.336 and 0.373 noted. However, this is in the setting of chronic renal insufficiency. BUN of 47 and creatinine of 2.2. Echocardiogram this admission revealed ejection fraction of 45-50% with mild dilated left atrium, aortic sclerosis, mild TR with pulmonary artery pressure 35-40 mmHg. During her hospitalization, her troponin was noted to be mildly elevated. Because of this , cardiac chest been consulted to further evaluate. NOVEMBER 15, 2016 UPDATE - Patient was seen and examined on the telemetry unit. She has done well overnight and is without complaints this morning. Afebrile. She denies chest pain, heaviness and tightness. Also denies shortness of breath. Creatinine this morning is significantly better at 1.4. BUN 21. Blood pressure is much better controlled today. Patient has been normal sinus rhythm per quality assurance monitor final without any overt arrhythmias or ectopy noted. Heart rates have been stable in the 60s. Patient is being discharged home per internal medicine. Patient given a follow-up appoint with Dr. Land in 2 weeks with EKG. ASSESSMENT/PLAN : 1. TRIVIAL TROPONIN - This does not appear to be significant. Suspect this is related to her chronic renal insufficiency. Creatinine today 1.4 with BUN of 21. Patient continues to deny chest pain, heaviness or tightness. However, patient does have history of coronary artery disease. Therefore, aspirin, Plavix, beta-stephanie and lipid-lowering agent will be continued. 2. CORONARY ARTERY DISEASE - This appears to be clinically stable at present. Patient is status post mid LAD stent in [address] Keith. Continue Plavix, aspirin, beta-stephanie and lipid-lowering agent. 3. BACTEREMIA - Culture revealed Klebsiella pneumoniae and is sensitive to Rocephin and Cipro. Continue current management. 4. UTI - Culture revealed Klebsiella pneumoniae and is sensitive to Rocephin. Continue current treatment. 5. DYSLIPIDEMIA - Continue lipid-lowering agent. Lipid panel was reviewed. LDL at goal- 59. However, patient was noted to have hypertriglyceridemia. We will add fish oil to medication regimen. 6. HYPERTENSION - Well controlled. Continue current plan of care. 7. GERD - Continue PPI. 8. DIABETES - Stable. Defer management of this to attending. 9. CHRONIC RENAL FAILURE, STAGE THREE - Will monitor with daily BMP. 10. MILD CARDIOMYOPATHY, ISCHEMIC - Most recent ejection fraction noted to be 45-50% per echocardiogram this admission. Patient is on adequate cardiomyopathy medication regimen. Continue beta-stephanie, ARB and PO Lasix. Continue to monitor renal function closely with ARB and Lasix. Can consider adding Aldactone in the future if needed. Further plan and addendum to follow per Dr. Land. Exam (Progress Note) - Constitutional Vitals: Period Temp Pulse Resp BP Sys/[place] Pulse Ox Last 24 Hr 97.1 F-98.4 F 60-77 16-20 156-192/64-90 95-99 Exam: General: Appears well with no apparent distress. Pleasant and cooperative. Appears comfortable. HEENT: PERRL, normocephalic, atraumatic. Mucous membranes moist. No jaundice noted. Conjunctiva moist and clear, sclerae anicteric Neck: No JVD/HJR, no thyromegaly or lymphadenopathy noted. No carotid bruit appreciated Cardiac: Regular rate and rhythm. No murmur rub or gallop. Lungs: Clear to auscultation without accessory muscle use to assist the respiratory pattern. Not requiring oxygen. Abdomen: Soft, bowel sounds normoactive. Nontender and nondistended. No abdominal bruit or thrill noted. No masses noted. Extremities: No clubbing, cyanosis noted. No edema noted. Upper extremity pulses 2+. Lower extremity pulses 2+. Capillary refill less than 3 seconds. Skin: Wound to right ankle with dressing clean dry and intact. Neuro: Awake, alert and oriented 3. No essential tremor is appreciated. Result/EKG - Labs CBC & BMP: 11/15/16 03:49 11/15/16 03:49 Lab Results: I have reviewed the past 24 hour labs Labs: Laboratory Results - last 24 hr 11/14/16 11/14/16 11/15/16 12:08 15:56 03:49 WBC 11.1 RBC 4.46 Hgb 11.9 L Hct 36.8 MCV 82.5 L MCH 27 MCHC 32.3 RDW 14.0 Plt Count 322 MPV 10.2 Neut % (Auto) 58.6 Lymph % (Auto) 23.7 [place] % (Auto) 8.3 Eos % (Auto) 4.6 Baso % (Auto) 0.7 Neut # (Auto) 6.5 Lymph # (Auto) 2.6 [place] # (Auto) 0.9 H Eos # (Auto) 0.5 Baso # (Auto) 0.1 Immature Gran % 4.1 Nucleated RBC % 0.0 Immature Gran # 0.46 Nucleated RBCs # 0.00 Sodium Potassium Chloride Carbon Dioxide Anion Gap BUN Creatinine GFR Calculation BUN/Creatinine Ratio Glucose POC Glucose 185 H 174 H Calculated Osmolality Calcium Magnesium 11/15/16 11/15/16 03:49 07:54 WBC RBC Hgb Hct MCV MCH MCHC RDW Plt Count MPV Neut % (Auto) Lymph % (Auto) [place] % (Auto) Eos % (Auto) Baso % (Auto) Neut # (Auto) Lymph # (Auto) [place] # (Auto) Eos # (Auto) Baso # (Auto) Immature Gran % Nucleated RBC % Immature Gran # Nucleated RBCs # Sodium 138 Potassium 4.2 Chloride 98 Carbon Dioxide 30 Anion Gap 14.2 BUN 48 H Creatinine 2.20 H GFR Calculation 20 BUN/Creatinine Ratio 21.00 H Glucose 105 POC Glucose 130 H Calculated Osmolality 287.7 Calcium 8.5 Magnesium 2.4 Specialty Discharge - Follow Up or Referrals Follow up with: Zafar Mehta MD [Family Provider] - 11/26/16 3:00 pm Olaf Land MD [Physician] - 12/18/16 9:40 am <Olaf Land - Last Filed: 11/15/16 10:55> Assessment and Plan (1) CAD (coronary artery disease) Status: Chronic Current Visit: Yes Qualifiers: Coronary Disease-Associated Artery/Lesion type: [place] artery [place] vs. transplanted heart: [place] heart (2) Bacteremia Status: Acute Current Visit: Yes (3) Chronic renal failure, stage 3 (moderate) Status: Chronic Current Visit: Yes (4) Diabetes Status: Chronic Current Visit: Yes (5) Hypertension Status: Chronic Current Visit: Yes (6) Elevated troponin Status: Acute Current Visit: Yes Cardiology - PN: Subj Interval history: Cardiology addendum Feels much better. No temperature. Klebsiella UTI treated Follow-up scheduled. Patient encouraged use her walker at all times for gait support and rest frequently. Findings and plan discussed with patient and her Ruddy Exam (Progress Note) - Constitutional Vitals: Period Temp Pulse Resp BP Sys/[place] Pulse Ox Last 24 Hr 97.1 F-98.4 F 60-77 16-20 156-192/64-90 95-99 Result/EKG - Labs CBC & BMP: 11/15/16 03:49 11/15/16 03:49 Labs: Laboratory Results - last 24 hr 11/14/16 11/14/16 11/15/16 12:08 15:56 03:49 WBC 11.1 RBC 4.46 Hgb 11.9 L Hct 36.8 MCV 82.5 L MCH 27 MCHC 32.3 RDW 14.0 Plt Count 322 MPV 10.2 Neut % (Auto) 58.6 Lymph % (Auto) 23.7 [place] % (Auto) 8.3 Eos % (Auto) 4.6 Baso % (Auto) 0.7 Neut # (Auto) 6.5 Lymph # (Auto) 2.6 [place] # (Auto) 0.9 H Eos # (Auto) 0.5 Baso # (Auto) 0.1 Immature Gran % 4.1 Nucleated RBC % 0.0 Immature Gran # 0.46 Nucleated RBCs # 0.00 Sodium Potassium Chloride Carbon Dioxide Anion Gap BUN Creatinine GFR Calculation BUN/Creatinine Ratio Glucose POC Glucose 185 H 174 H Calculated Osmolality Calcium Magnesium 11/15/16 11/15/16 03:49 07:54 WBC RBC Hgb Hct MCV MCH MCHC RDW Plt Count MPV Neut % (Auto) Lymph % (Auto) [place] % (Auto) Eos % (Auto) Baso % (Auto) Neut # (Auto) Lymph # (Auto) [place] # (Auto) Eos # (Auto) Baso # (Auto) Immature Gran % Nucleated RBC % Immature Gran # Nucleated RBCs # Sodium 138 Potassium 4.2 Chloride 98 Carbon Dioxide 30 Anion Gap 14.2 BUN 48 H Creatinine 2.20 H GFR Calculation 20 BUN/Creatinine Ratio 21.00 H Glucose 105 POC Glucose 130 H Calculated Osmolality 287.7 Calcium 8.5 Magnesium 2.4
[2016-11-15 12:10] VITALS: BP 141/82
[2016-11-15] MEDS: DIGOXIN 0.125 MG TABLET PO SCH (12:42)
== END 2016-11-15 13:46 | disposition home or self-care (01) | DRG 872 ==
LOC: N.ED 19:02 → N.EDINP 20:33 → N.5E 21:15 → N.ICU 11-12 01:57 → N.TELEN 11-12 18:42
PROVIDERS: ADMIT Internal Medicine; ATTEND Internal Medicine

== ENCOUNTER 2017-08-09 17:46 | Inpatient (IN) ==
[~2017-08-09 17:46] MED LIST: ENOXAPARIN 30 MG/0.3 ML SYRINGE SUBCUT SCH
[2017-08-09 20:07] LABS: Basophils % 0.6 % (0.0-0.8); Eosinophils # 0.2 10*3/uL (0.0-0.87); Eosinophils % 2.3 % (0.00-10.9); Hematocrit 41.2 VOL% (35.7-47.0); Hemoglobin 12.9 GM/DL (12.0-16.0); Immature Granulocytes Absolute 0.07 #; Lymphocytes # 1.3 10*3/uL (1.4-4.0); Lymphocytes % 18.6 % (21.3-54.2); Mean Corpuscular HGB Conc 31.3 GM/DL (32-36); Mean Corpuscular Hemoglobin 28 PG (27-34); Mean Corpuscular Volume 89.6 FL (87-102); Mean Platelet Volume 10.5 FL (9.6-12.0); Monocytes # 0.4 10*3/uL (0.11-0.8); Monocytes % 5.4 % (1.7-12.7); Neutrophils % 72.1 % (38.7-73.9); Platelet Count 311 T/CUMM (130-400); Red Cell Distribution Width 14.3 % (9.3-17.3); White Blood Count 6.9 T/CUMM (4-12)
[2017-08-09] MEDS ORDERED: hydrALAZINE 20 MG/1 ML VIAL IV STA ×2 (20:14→21:31)
[2017-08-09] MEDS ORDERED: hydrALAZINE 20 MG/1 ML VIAL ONE ×2 (20:14→21:41)
[2017-08-09 20:22] LABS: Calcium 8.2 MG/DL (8.5-10.1); Potassium 4.3 MMOL/L (3.5-5.1)
[2017-08-09 20:23] LABS: INR 1.2; PT Patient Result 12.1 SECS
[2017-08-09 20:26] LABS: CKMB % 2.5 %; Troponin I Only < 0.015 NG/ML (0.00-0.045)
[2017-08-09 21:22] LABS: Apearance,Urine CLOUDY (Clear); Bacteria,Urine Moderate /HPF (Few); Bilirubin,Urine Negative (Negative); Blood, Urine Negative (Negative); Glucose,Urine (UA) Negative (Negative); Hyaline Casts,Urine 2 /LPF (0-3); Ketones,Urine Negative (Negative); Nitrite,Urine Negative (Negative); Protein,Urine 100 MG/DL; Squamous Epithelial Cell,Urine Occasional /HPF (0-10); Urine Color Yellow (Yellow); Urine Urobilinogen < 2.0 EU/DL (0.2-1.0); WBC,Urine 20 /HPF (0-6)
[2017-08-09] MEDS ORDERED: cefTRIAXone 1,000 MG in SODIUM CHLORIDE 0.9% 100 ML IV STA (21:26)
[2017-08-09] MEDS ORDERED: cefTRIAXone 1,000 MG VIAL ONE (21:41)
[2017-08-09] MEDS ORDERED: ACETAMINOPHEN 325 MG TABLET PO PRN (22:04)
[2017-08-09] MEDS ORDERED: traMADol 50 MG TABLET PO PRN (22:04)
[2017-08-09] MEDS ORDERED: NALOXONE 0.4 MG/ML VIAL IV PRN (22:04)
[2017-08-09] MEDS ORDERED: ONDANSETRON 4 MG/2 ML VIAL IV PRN (22:04)
[2017-08-09] MEDS ORDERED: GLUCAGON 1 MG VIAL IM PRN (22:07)
[2017-08-09] MEDS ORDERED: DEXTROSE 50% 25 GM/50 ML VIAL IV PRN (22:07)
[2017-08-10] MEDS ORDERED: ENOXAPARIN 30 MG/0.3 ML SYRINGE SUBCUT SCH (00:40)
[2017-08-10] MEDS: INSULIN REGULAR 100 UNIT/ML SUBCUT SCH ×5 (04:50→21:19)
[2017-08-10] MEDS: hydrALAZINE 20 MG/1 ML VIAL IV PRN ×2 (05:26→14:28)
[2017-08-10 05:50] LABS: Basophils # 0.1 10*3/uL (0.0-0.2); Basophils % 0.8 % (0.0-0.8); Eosinophils # 0.3 10*3/uL (0.0-0.87); Eosinophils % 2.4 % (0.00-10.9); Hematocrit 38.7 VOL% (35.7-47.0); Immature Granulocytes % 1.3 %; Immature Granulocytes Absolute 0.14 #; Lymphocytes # 2.6 10*3/uL (1.4-4.0); Lymphocytes % 24.6 % (21.3-54.2); Mean Corpuscular HGB Conc 33.6 GM/DL (32-36); Mean Corpuscular Hemoglobin 29 PG (27-34); Mean Platelet Volume 10.8 FL (9.6-12.0); Monocytes # 0.8 10*3/uL (0.11-0.8); Monocytes % 7.2 % (1.7-12.7); Neutrophils # 6.8 10*3/uL (1.4-7.4); Neutrophils % 63.7 % (38.7-73.9); Platelet Count 349 T/CUMM (130-400); Red Cell Distribution Width 14.2 % (9.3-17.3); White Blood Count 10.7 T/CUMM (4-12)
[2017-08-10 06:33] LABS: Albumin 3.5 G/DL (3.4-5.0); Bilirubin,Total 0.5 MG/DL (0.2-1.0); Calcium 9.1 MG/DL (8.5-10.1); Osmolality,Calculated 288.1 MOS/KG (273-304); Potassium 4.1 MMOL/L (3.5-5.1); Total Protein 7.2 G/DL (6.4-8.3)
[2017-08-10] MEDS: DEXTROSE 5% NACL 0.45% 1,000 ML IV SCH ×2 (08:50→17:42)
[2017-08-10] MEDS ORDERED: PANTOPRAZOLE 40 MG TABLET PO SCH (09:00)
[2017-08-10] MEDS: ASPIRIN EC 81 MG TABLET PO SCH (11:50)
[2017-08-10] MEDS: rOPINIRole 0.25 MG TABLET PO SCH ×3 (11:50→21:18)
[2017-08-10] MEDS: ATORVASTATIN 20 MG TABLET PO SCH (11:50)
[2017-08-10] MEDS: GABAPENTIN 400 MG CAPSULE PO SCH ×3 (11:50→21:18)
[2017-08-10] MEDS: amLODIPine 10 MG TABLET PO SCH (11:50)
[2017-08-10] MEDS: FENOFIBRATE 145 MG TABLET PO SCH (11:50)
[2017-08-10] MEDS: MAGNESIUM OXIDE 400 MG TABLET PO SCH (11:50)
[2017-08-10] MEDS: SOLIFENACIN 5 MG TABLET PO SCH (11:50)
[2017-08-10] MEDS: POTASSIUM CHLORIDE 20 MEQ TABLET PO SCH ×2 (11:50→21:17)
[2017-08-10] MEDS: LORazepam 0.5 MG TABLET PO SCH ×3 (11:51→21:19)
[2017-08-10] MEDS: PARoxetine 20 MG TABLET PO SCH (11:51)
[2017-08-10] MEDS: CARVEDILOL 6.25 MG TABLET PO SCH ×2 (11:51→21:18)
[2017-08-10] MEDS: LORATADINE 10 MG TABLET PO SCH (11:51)
[2017-08-10] MEDS: MULTIVITAMIN (CENTRUM) TABLET PO SCH (11:51)
[2017-08-10] MEDS: PANTOPRAZOLE 40 MG TABLET PO SCH ×2 (11:51→21:18)
[2017-08-10] MEDS: DOCUSATE SODIUM 100 MG CAPSULE PO SCH ×2 (11:51→21:18)
[2017-08-10] MEDS: CLOPIDOGREL 75 MG TABLET PO SCH (11:51)
[2017-08-10] MEDS: FUROSEMIDE 40 MG TABLET PO SCH (11:51)
[2017-08-10] MEDS: DIGOXIN 0.125 MG TABLET PO SCH (13:32)
[2017-08-10] MEDS ORDERED: hydrALAZINE 20 MG/1 ML VIAL IV ONE (16:44)
[2017-08-10] MEDS: DONEPEZIL 10 MG TABLET PO SCH (21:18)
[2017-08-11] MEDS: INSULIN REGULAR 100 UNIT/ML SUBCUT SCH ×6 (00:59→20:49)
[2017-08-11] MEDS: DEXTROSE 5% NACL 0.45% 1,000 ML IV SCH ×2 (03:20→15:22)
[2017-08-11] MEDS ORDERED: LEVOTHYROXINE 50 MCG TABLET PO SCH (06:30)
[2017-08-11 09:36] LABS: Calcium 8.3 MG/DL (8.5-10.1); Osmolality,Calculated 288.7 MOS/KG (273-304)
[2017-08-11] MEDS: DOCUSATE SODIUM 100 MG CAPSULE PO SCH ×2 (09:53→20:50)
[2017-08-11] MEDS: FUROSEMIDE 40 MG TABLET PO SCH (09:53)
[2017-08-11] MEDS: FENOFIBRATE 145 MG TABLET PO SCH (09:54)
[2017-08-11] MEDS: CARVEDILOL 6.25 MG TABLET PO SCH ×2 (09:54→20:51)
[2017-08-11] MEDS: MULTIVITAMIN (CENTRUM) TABLET PO SCH (09:54)
[2017-08-11] MEDS: SOLIFENACIN 5 MG TABLET PO SCH (09:58)
[2017-08-11] MEDS: PANTOPRAZOLE 40 MG TABLET PO SCH ×2 (09:59→20:50)
[2017-08-11] MEDS: LEVOFLOXACIN 500 MG TABLET PO SCH (09:59)
[2017-08-11] MEDS: CLOPIDOGREL 75 MG TABLET PO SCH (09:59)
[2017-08-11] MEDS: ASPIRIN EC 81 MG TABLET PO SCH (09:59)
[2017-08-11] MEDS: POTASSIUM CHLORIDE 20 MEQ TABLET PO SCH ×2 (10:00→20:50)
[2017-08-11] MEDS: ATORVASTATIN 20 MG TABLET PO SCH (10:00)
[2017-08-11] MEDS: GABAPENTIN 400 MG CAPSULE PO SCH ×3 (10:00→20:50)
[2017-08-11] MEDS: PARoxetine 20 MG TABLET PO SCH (10:00)
[2017-08-11] MEDS: LORATADINE 10 MG TABLET PO SCH (10:00)
[2017-08-11] MEDS: LORazepam 0.5 MG TABLET PO SCH ×3 (10:02→20:51)
[2017-08-11] MEDS: MAGNESIUM OXIDE 400 MG TABLET PO SCH (10:04)
[2017-08-11] MEDS: rOPINIRole 0.25 MG TABLET PO SCH ×3 (10:05→20:50)
[2017-08-11] MEDS: amLODIPine 10 MG TABLET PO SCH (10:06)
[2017-08-11] MEDS: DIGOXIN 0.125 MG TABLET PO SCH (15:19)
[2017-08-11] MEDS: DONEPEZIL 10 MG TABLET PO SCH (20:50)
[2017-08-12] MEDS: INSULIN REGULAR 100 UNIT/ML SUBCUT SCH ×6 (00:58→21:24)
[2017-08-12] MEDS: LEVOTHYROXINE 75 MCG TABLET PO SCH (05:33)
[2017-08-12 05:56] LABS: Basophils # 0.1 10*3/uL (0.0-0.2); Basophils % 1.3 % (0.0-0.8); Eosinophils # 0.6 10*3/uL (0.0-0.87); Eosinophils % 8.1 % (0.00-10.9); Hematocrit 31.6 VOL% (35.7-47.0); Immature Granulocytes % 1.4 %; Immature Granulocytes Absolute 0.11 #; Lymphocytes # 2.5 10*3/uL (1.4-4.0); Lymphocytes % 32.2 % (21.3-54.2); Mean Corpuscular HGB Conc 31.6 GM/DL (32-36); Mean Corpuscular Hemoglobin 28 PG (27-34); Mean Corpuscular Volume 88.8 FL (87-102); Mean Platelet Volume 10.7 FL (9.6-12.0); Monocytes # 0.7 10*3/uL (0.11-0.8); Monocytes % 8.5 % (1.7-12.7); Neutrophils # 3.7 10*3/uL (1.4-7.4); Neutrophils % 48.5 % (38.7-73.9); Platelet Count 230 T/CUMM (130-400); Red Blood Count 3.56 MC/CUMM (3.8-5.5); Red Cell Distribution Width 14.1 % (9.3-17.3); White Blood Count 7.7 T/CUMM (4-12)
[2017-08-12 06:30] LABS: Calcium 8.2 MG/DL (8.5-10.1); Osmolality,Calculated 288.5 MOS/KG (273-304); Potassium 4.3 MMOL/L (3.5-5.1)
[2017-08-12] MEDS: amLODIPine 10 MG TABLET PO SCH (08:35)
[2017-08-12] MEDS: MULTIVITAMIN (CENTRUM) TABLET PO SCH (08:35)
[2017-08-12] MEDS: DOCUSATE SODIUM 100 MG CAPSULE PO SCH ×2 (08:36→20:52)
[2017-08-12] MEDS: FENOFIBRATE 145 MG TABLET PO SCH (08:36)
[2017-08-12] MEDS: PARoxetine 20 MG TABLET PO SCH (08:36)
[2017-08-12] MEDS: LORATADINE 10 MG TABLET PO SCH (08:36)
[2017-08-12] MEDS: CLOPIDOGREL 75 MG TABLET PO SCH (08:36)
[2017-08-12] MEDS: ASPIRIN EC 81 MG TABLET PO SCH (08:36)
[2017-08-12] MEDS: CARVEDILOL 6.25 MG TABLET PO SCH ×2 (08:36→20:52)
[2017-08-12] MEDS: rOPINIRole 0.25 MG TABLET PO SCH ×3 (08:36→20:52)
[2017-08-12] MEDS: SOLIFENACIN 5 MG TABLET PO SCH (08:36)
[2017-08-12] MEDS: ATORVASTATIN 20 MG TABLET PO SCH (08:36)
[2017-08-12] MEDS: FUROSEMIDE 40 MG TABLET PO SCH (08:37)
[2017-08-12] MEDS: PANTOPRAZOLE 40 MG TABLET PO SCH ×2 (08:37→20:52)
[2017-08-12] MEDS: POTASSIUM CHLORIDE 20 MEQ TABLET PO SCH ×2 (08:37→20:52)
[2017-08-12] MEDS: LEVOFLOXACIN 500 MG TABLET PO SCH (08:37)
[2017-08-12] MEDS ORDERED: LORazepam 0.5 MG TABLET PO PRN (08:48)
[2017-08-12] MEDS: MAGNESIUM OXIDE 400 MG TABLET PO SCH (09:17)
[2017-08-12] MEDS: GABAPENTIN 400 MG CAPSULE PO SCH ×3 (09:17→20:52)
[2017-08-12] MEDS: DONEPEZIL 10 MG TABLET PO SCH (20:52)
[2017-08-13] MEDS: INSULIN REGULAR 100 UNIT/ML SUBCUT SCH ×6 (02:42→20:33)
[2017-08-13] MEDS: LEVOTHYROXINE 75 MCG TABLET PO SCH (06:06)
[2017-08-13] MEDS: hydrALAZINE 20 MG/1 ML VIAL IV PRN ×2 (06:06→11:42)
[2017-08-13 06:21] LABS: Basophils # 0.1 10*3/uL (0.0-0.2); Basophils % 0.7 % (0.0-0.8); Eosinophils # 0.5 10*3/uL (0.0-0.87); Eosinophils % 4.2 % (0.00-10.9); Hematocrit 30.6 VOL% (35.7-47.0); Hemoglobin 10.3 GM/DL (12.0-16.0); Immature Granulocytes % 1.4 %; Immature Granulocytes Absolute 0.15 #; Lymphocytes # 1.8 10*3/uL (1.4-4.0); Lymphocytes % 16.4 % (21.3-54.2); Mean Corpuscular HGB Conc 33.7 GM/DL (32-36); Mean Corpuscular Hemoglobin 29 PG (27-34); Mean Corpuscular Volume 85.5 FL (87-102); Mean Platelet Volume 10.7 FL (9.6-12.0); Monocytes # 0.8 10*3/uL (0.11-0.8); Neutrophils # 7.6 10*3/uL (1.4-7.4); Neutrophils % 70.3 % (38.7-73.9); Platelet Count 228 T/CUMM (130-400); Red Blood Count 3.58 MC/CUMM (3.8-5.5); Red Cell Distribution Width 14.1 % (9.3-17.3); White Blood Count 10.9 T/CUMM (4-12)
[2017-08-13 06:57] LABS: Calcium 8.1 MG/DL (8.5-10.1); Osmolality,Calculated 286.7 MOS/KG (273-304); Potassium 4.3 MMOL/L (3.5-5.1)
[2017-08-13] MEDS: amLODIPine 10 MG TABLET PO SCH (09:10)
[2017-08-13] MEDS: CLOPIDOGREL 75 MG TABLET PO SCH (09:10)
[2017-08-13] MEDS: MAGNESIUM OXIDE 400 MG TABLET PO SCH (09:10)
[2017-08-13] MEDS: POTASSIUM CHLORIDE 20 MEQ TABLET PO SCH ×2 (09:10→23:55)
[2017-08-13] MEDS: LORATADINE 10 MG TABLET PO SCH (09:10)
[2017-08-13] MEDS: ATORVASTATIN 20 MG TABLET PO SCH (09:10)
[2017-08-13] MEDS: SOLIFENACIN 5 MG TABLET PO SCH (09:10)
[2017-08-13] MEDS: PARoxetine 20 MG TABLET PO SCH (09:10)
[2017-08-13] MEDS: ASPIRIN EC 81 MG TABLET PO SCH (09:10)
[2017-08-13] MEDS: FUROSEMIDE 40 MG TABLET PO SCH (09:10)
[2017-08-13] MEDS: FENOFIBRATE 145 MG TABLET PO SCH (09:10)
[2017-08-13] MEDS: DOCUSATE SODIUM 100 MG CAPSULE PO SCH ×2 (09:10→23:55)
[2017-08-13] MEDS: PANTOPRAZOLE 40 MG TABLET PO SCH ×2 (09:10→23:56)
[2017-08-13] MEDS: rOPINIRole 0.25 MG TABLET PO SCH ×3 (09:10→23:56)
[2017-08-13] MEDS: MULTIVITAMIN (CENTRUM) TABLET PO SCH (09:10)
[2017-08-13] MEDS: CARVEDILOL 6.25 MG TABLET PO SCH ×2 (09:11→23:56)
[2017-08-13] MEDS: GABAPENTIN 400 MG CAPSULE PO SCH ×3 (09:11→23:56)
[2017-08-13] MEDS: ENOXAPARIN 30 MG/0.3 ML SYRINGE SUBCUT SCH (09:11)
[2017-08-13] MEDS: DIGOXIN 0.125 MG TABLET PO SCH (14:30)
[2017-08-13] MEDS: PIPERACILLIN/TAZOBACTAM 2,250 MG in SODIUM CHLORIDE 0.9% 100 ML IV SCH (18:35)
[2017-08-13] MEDS: DONEPEZIL 10 MG TABLET PO SCH (23:56)
[2017-08-14] MEDS: INSULIN REGULAR 100 UNIT/ML SUBCUT SCH ×6 (00:33→20:31)
[2017-08-14 05:14] LABS: Basophils # 0.1 10*3/uL (0.0-0.2); Basophils % 0.8 % (0.0-0.8); Eosinophils # 0.4 10*3/uL (0.0-0.87); Eosinophils % 4.3 % (0.00-10.9); Hematocrit 30.6 VOL% (35.7-47.0); Hemoglobin 9.9 GM/DL (12.0-16.0); Immature Granulocytes % 1.3 %; Immature Granulocytes Absolute 0.11 #; Lymphocytes % 22.6 % (21.3-54.2); Mean Corpuscular HGB Conc 32.4 GM/DL (32-36); Mean Corpuscular Hemoglobin 29 PG (27-34); Mean Corpuscular Volume 88.4 FL (87-102); Monocytes # 0.7 10*3/uL (0.11-0.8); Monocytes % 8.2 % (1.7-12.7); Neutrophils # 5.4 10*3/uL (1.4-7.4); Neutrophils % 62.8 % (38.7-73.9); Platelet Count 223 T/CUMM (130-400); Red Blood Count 3.46 MC/CUMM (3.8-5.5); Red Cell Distribution Width 14.3 % (9.3-17.3); White Blood Count 8.6 T/CUMM (4-12)
[2017-08-14 05:49] LABS: Calcium 8.3 MG/DL (8.5-10.1); Osmolality,Calculated 284.8 MOS/KG (273-304); Potassium 4.3 MMOL/L (3.5-5.1)
[2017-08-14] MEDS: PIPERACILLIN/TAZOBACTAM 2,250 MG in SODIUM CHLORIDE 0.9% 100 ML IV SCH (06:20)
[2017-08-14] MEDS: LEVOTHYROXINE 75 MCG TABLET PO SCH (06:20)
[2017-08-14] MEDS ORDERED: ALBUTEROL/IPRATROPIUM 3 ML NEB RESP TX PRN (07:42)
[2017-08-14] MEDS: ALBUTEROL/IPRATROPIUM 3 ML NEB RESP TX SCH ×3 (08:56→23:37)
[2017-08-14] MEDS ORDERED: LEVOFLOXACIN 500 MG TABLET PO SCH (09:00)
[2017-08-14] MEDS: CLOPIDOGREL 75 MG TABLET PO SCH (09:35)
[2017-08-14] MEDS: FENOFIBRATE 145 MG TABLET PO SCH (09:35)
[2017-08-14] MEDS: amLODIPine 10 MG TABLET PO SCH (09:35)
[2017-08-14] MEDS: GABAPENTIN 400 MG CAPSULE PO SCH ×3 (09:35→21:17)
[2017-08-14] MEDS: ASPIRIN EC 81 MG TABLET PO SCH (09:35)
[2017-08-14] MEDS: POTASSIUM CHLORIDE 20 MEQ TABLET PO SCH ×2 (09:35→21:17)
[2017-08-14] MEDS: rOPINIRole 0.25 MG TABLET PO SCH ×3 (09:35→21:17)
[2017-08-14] MEDS: PANTOPRAZOLE 40 MG TABLET PO SCH ×2 (09:35→21:18)
[2017-08-14] MEDS: MAGNESIUM OXIDE 400 MG TABLET PO SCH (09:35)
[2017-08-14] MEDS: FUROSEMIDE 40 MG TABLET PO SCH (09:35)
[2017-08-14] MEDS: PARoxetine 20 MG TABLET PO SCH (09:35)
[2017-08-14] MEDS: LORATADINE 10 MG TABLET PO SCH (09:36)
[2017-08-14] MEDS: DOCUSATE SODIUM 100 MG CAPSULE PO SCH ×2 (09:36→21:18)
[2017-08-14] MEDS: MULTIVITAMIN (CENTRUM) TABLET PO SCH (09:36)
[2017-08-14] MEDS: ENOXAPARIN 30 MG/0.3 ML SYRINGE SUBCUT SCH (09:36)
[2017-08-14] MEDS: SOLIFENACIN 5 MG TABLET PO SCH (09:36)
[2017-08-14] MEDS: CARVEDILOL 6.25 MG TABLET PO SCH ×2 (09:41→21:18)
[2017-08-14] MEDS: ATORVASTATIN 20 MG TABLET PO SCH (09:42)
[2017-08-14] MEDS: hydrALAZINE 20 MG/1 ML VIAL IV PRN (12:02)
[2017-08-14] MEDS: FUROSEMIDE 20 MG TABLET PO SCH (16:28)
[2017-08-14] MEDS: PIPERACILLIN/TAZOBACTAM 3,375 MG in SODIUM CHLORIDE 0.9% 100 ML IV SCH (21:05)
[2017-08-14] MEDS: DONEPEZIL 10 MG TABLET PO SCH (21:17)
[2017-08-15] MEDS: INSULIN REGULAR 100 UNIT/ML SUBCUT SCH ×6 (00:20→21:36)
[2017-08-15] MEDS: hydrALAZINE 20 MG/1 ML VIAL IV PRN (04:50)
[2017-08-15 06:32] LABS: Basophils # 0.1 10*3/uL (0.0-0.2); Basophils % 0.6 % (0.0-0.8); Eosinophils # 0.3 10*3/uL (0.0-0.87); Eosinophils % 3.3 % (0.00-10.9); Hematocrit 29.3 VOL% (35.7-47.0); Hemoglobin 9.9 GM/DL (12.0-16.0); Immature Granulocytes % 1.4 %; Immature Granulocytes Absolute 0.11 #; Lymphocytes # 1.4 10*3/uL (1.4-4.0); Mean Corpuscular HGB Conc 33.8 GM/DL (32-36); Mean Corpuscular Hemoglobin 29 PG (27-34); Mean Corpuscular Volume 84.9 FL (87-102); Mean Platelet Volume 11.2 FL (9.6-12.0); Monocytes # 0.7 10*3/uL (0.11-0.8); Monocytes % 8.6 % (1.7-12.7); Neutrophils # 5.4 10*3/uL (1.4-7.4); Neutrophils % 68.1 % (38.7-73.9); Platelet Count 237 T/CUMM (130-400); Red Blood Count 3.45 MC/CUMM (3.8-5.5); Red Cell Distribution Width 14.1 % (9.3-17.3)
[2017-08-15 07:05] LABS: Calcium 8.4 MG/DL (8.5-10.1); Potassium 4.3 MMOL/L (3.5-5.1)
[2017-08-15] MEDS: ALBUTEROL/IPRATROPIUM 3 ML NEB RESP TX SCH ×2 (07:09→15:08)
[2017-08-15] MEDS: LEVOTHYROXINE 75 MCG TABLET PO SCH (08:00)
[2017-08-15] MEDS: FUROSEMIDE 40 MG TABLET PO SCH (08:33)
[2017-08-15] MEDS: MAGNESIUM OXIDE 400 MG TABLET PO SCH (08:33)
[2017-08-15] MEDS: rOPINIRole 0.25 MG TABLET PO SCH ×3 (08:33→21:40)
[2017-08-15] MEDS: MULTIVITAMIN (CENTRUM) TABLET PO SCH (08:33)
[2017-08-15] MEDS: GABAPENTIN 400 MG CAPSULE PO SCH (08:33)
[2017-08-15] MEDS: FENOFIBRATE 145 MG TABLET PO SCH (08:33)
[2017-08-15] MEDS: amLODIPine 10 MG TABLET PO SCH (08:33)
[2017-08-15] MEDS: LORATADINE 10 MG TABLET PO SCH (08:33)
[2017-08-15] MEDS: DOCUSATE SODIUM 100 MG CAPSULE PO SCH ×2 (08:33→21:40)
[2017-08-15] MEDS: PARoxetine 20 MG TABLET PO SCH (08:33)
[2017-08-15] MEDS: POTASSIUM CHLORIDE 20 MEQ TABLET PO SCH ×2 (08:33→21:39)
[2017-08-15] MEDS: ASPIRIN EC 81 MG TABLET PO SCH (08:33)
[2017-08-15] MEDS: PANTOPRAZOLE 40 MG TABLET PO SCH ×2 (08:33→21:40)
[2017-08-15] MEDS: SOLIFENACIN 5 MG TABLET PO SCH (08:33)
[2017-08-15] MEDS: ATORVASTATIN 20 MG TABLET PO SCH (08:33)
[2017-08-15] MEDS: CLOPIDOGREL 75 MG TABLET PO SCH (08:33)
[2017-08-15] MEDS: CARVEDILOL 6.25 MG TABLET PO SCH ×2 (08:33→21:40)
[2017-08-15] MEDS: ENOXAPARIN 30 MG/0.3 ML SYRINGE SUBCUT SCH (08:34)
[2017-08-15] MEDS: PIPERACILLIN/TAZOBACTAM 3,375 MG in SODIUM CHLORIDE 0.9% 100 ML IV SCH ×2 (08:34→21:38)
[2017-08-15] MEDS: DIGOXIN 0.125 MG TABLET PO SCH (15:09)
[2017-08-15] MEDS: FUROSEMIDE 20 MG TABLET PO SCH (15:09)
[2017-08-15] MEDS: GABAPENTIN 100 MG CAPSULE PO SCH (21:39)
[2017-08-15] MEDS: DONEPEZIL 10 MG TABLET PO SCH (21:40)
[2017-08-16] MEDS: ALBUTEROL/IPRATROPIUM 3 ML NEB RESP TX SCH ×4 (00:09→22:52)
[2017-08-16] MEDS: INSULIN REGULAR 100 UNIT/ML SUBCUT SCH ×6 (01:30→20:41)
[2017-08-16 05:56] LABS: Basophils # 0.1 10*3/uL (0.0-0.2); Eosinophils # 0.4 10*3/uL (0.0-0.87); Eosinophils % 5.2 % (0.00-10.9); Hematocrit 28.3 VOL% (35.7-47.0); Hemoglobin 9.3 GM/DL (12.0-16.0); Immature Granulocytes % 1.2 %; Immature Granulocytes Absolute 0.08 #; Lymphocytes # 1.7 10*3/uL (1.4-4.0); Lymphocytes % 24.6 % (21.3-54.2); Mean Corpuscular HGB Conc 32.9 GM/DL (32-36); Mean Corpuscular Hemoglobin 28 PG (27-34); Mean Corpuscular Volume 86.3 FL (87-102); Mean Platelet Volume 11.1 FL (9.6-12.0); Monocytes # 0.6 10*3/uL (0.11-0.8); Platelet Count 239 T/CUMM (130-400); Red Blood Count 3.28 MC/CUMM (3.8-5.5); Red Cell Distribution Width 13.8 % (9.3-17.3); White Blood Count 6.9 T/CUMM (4-12)
[2017-08-16 06:13] LABS: Calcium 8.3 MG/DL (8.5-10.1); Osmolality,Calculated 281.1 MOS/KG (273-304); Potassium 3.8 MMOL/L (3.5-5.1)
[2017-08-16] MEDS: LEVOTHYROXINE 75 MCG TABLET PO SCH (06:49)
[2017-08-16] MEDS: hydrALAZINE 20 MG/1 ML VIAL IV PRN ×2 (06:49→16:21)
[2017-08-16] MEDS: PANTOPRAZOLE 40 MG TABLET PO SCH ×2 (09:06→20:44)
[2017-08-16] MEDS: SOLIFENACIN 5 MG TABLET PO SCH (09:06)
[2017-08-16] MEDS: PIPERACILLIN/TAZOBACTAM 3,375 MG in SODIUM CHLORIDE 0.9% 100 ML IV SCH ×2 (09:06→21:17)
[2017-08-16] MEDS: ASPIRIN EC 81 MG TABLET PO SCH (09:06)
[2017-08-16] MEDS: PARoxetine 20 MG TABLET PO SCH (09:06)
[2017-08-16] MEDS: DOCUSATE SODIUM 100 MG CAPSULE PO SCH ×2 (09:06→20:45)
[2017-08-16] MEDS: MULTIVITAMIN (CENTRUM) TABLET PO SCH (09:06)
[2017-08-16] MEDS: FUROSEMIDE 40 MG TABLET PO SCH (09:06)
[2017-08-16] MEDS: CLOPIDOGREL 75 MG TABLET PO SCH (09:06)
[2017-08-16] MEDS: POTASSIUM CHLORIDE 20 MEQ TABLET PO SCH ×2 (09:06→20:45)
[2017-08-16] MEDS: CARVEDILOL 6.25 MG TABLET PO SCH ×2 (09:06→20:45)
[2017-08-16] MEDS: MAGNESIUM OXIDE 400 MG TABLET PO SCH (09:06)
[2017-08-16] MEDS: rOPINIRole 0.25 MG TABLET PO SCH ×3 (09:06→20:46)
[2017-08-16] MEDS: ATORVASTATIN 20 MG TABLET PO SCH (09:06)
[2017-08-16] MEDS: amLODIPine 10 MG TABLET PO SCH (09:06)
[2017-08-16] MEDS: GABAPENTIN 100 MG CAPSULE PO SCH ×2 (09:06→20:44)
[2017-08-16] MEDS: FENOFIBRATE 145 MG TABLET PO SCH (09:06)
[2017-08-16] MEDS: LORATADINE 10 MG TABLET PO SCH (09:06)
[2017-08-16] MEDS: ENOXAPARIN 30 MG/0.3 ML SYRINGE SUBCUT SCH (09:07)
[2017-08-16] MEDS: DIGOXIN 0.125 MG TABLET PO SCH (12:47)
[2017-08-16] MEDS: FUROSEMIDE 20 MG TABLET PO SCH (15:51)
[2017-08-16] MEDS: DONEPEZIL 10 MG TABLET PO SCH (20:45)
[2017-08-17] MEDS: INSULIN REGULAR 100 UNIT/ML SUBCUT SCH ×6 (00:55→21:14)
[2017-08-17] MEDS: LEVOTHYROXINE 75 MCG TABLET PO SCH (05:39)
[2017-08-17 07:00] LABS: Basophils # 0.1 10*3/uL (0.0-0.2); Basophils % 1.1 % (0.0-0.8); Eosinophils # 0.4 10*3/uL (0.0-0.87); Eosinophils % 5.6 % (0.00-10.9); Hematocrit 29.2 VOL% (35.7-47.0); Hemoglobin 9.4 GM/DL (12.0-16.0); Immature Granulocytes % 1.3 %; Immature Granulocytes Absolute 0.08 #; Lymphocytes # 1.8 10*3/uL (1.4-4.0); Mean Corpuscular HGB Conc 32.2 GM/DL (32-36); Mean Corpuscular Hemoglobin 28 PG (27-34); Mean Corpuscular Volume 86.4 FL (87-102); Mean Platelet Volume 10.7 FL (9.6-12.0); Monocytes # 0.6 10*3/uL (0.11-0.8); Monocytes % 9.5 % (1.7-12.7); Neutrophils # 3.5 10*3/uL (1.4-7.4); Neutrophils % 54.5 % (38.7-73.9); Platelet Count 264 T/CUMM (130-400); Red Blood Count 3.38 MC/CUMM (3.8-5.5); Red Cell Distribution Width 13.7 % (9.3-17.3); White Blood Count 6.4 T/CUMM (4-12)
[2017-08-17] MEDS: ALBUTEROL/IPRATROPIUM 3 ML NEB RESP TX SCH ×2 (07:21→14:19)
[2017-08-17 07:32] LABS: Calcium 8.2 MG/DL (8.5-10.1); Osmolality,Calculated 282.1 MOS/KG (273-304); Potassium 3.9 MMOL/L (3.5-5.1)
[2017-08-17] MEDS: GABAPENTIN 100 MG CAPSULE PO SCH ×2 (08:57→21:14)
[2017-08-17] MEDS: MULTIVITAMIN (CENTRUM) TABLET PO SCH (08:57)
[2017-08-17] MEDS: FENOFIBRATE 145 MG TABLET PO SCH (08:58)
[2017-08-17] MEDS: SOLIFENACIN 5 MG TABLET PO SCH (08:58)
[2017-08-17] MEDS: FUROSEMIDE 40 MG TABLET PO SCH (08:58)
[2017-08-17] MEDS: DOCUSATE SODIUM 100 MG CAPSULE PO SCH ×2 (08:58→21:14)
[2017-08-17] MEDS: POTASSIUM CHLORIDE 20 MEQ TABLET PO SCH ×2 (08:58→21:14)
[2017-08-17] MEDS: LORATADINE 10 MG TABLET PO SCH (08:58)
[2017-08-17] MEDS: MAGNESIUM OXIDE 400 MG TABLET PO SCH (08:58)
[2017-08-17] MEDS: rOPINIRole 0.25 MG TABLET PO SCH ×3 (08:58→21:13)
[2017-08-17] MEDS: ATORVASTATIN 20 MG TABLET PO SCH (08:58)
[2017-08-17] MEDS: PARoxetine 20 MG TABLET PO SCH (08:58)
[2017-08-17] MEDS: PIPERACILLIN/TAZOBACTAM 3,375 MG in SODIUM CHLORIDE 0.9% 100 ML IV SCH ×2 (08:59→21:15)
[2017-08-17] MEDS: amLODIPine 10 MG TABLET PO SCH (08:59)
[2017-08-17] MEDS: ASPIRIN EC 81 MG TABLET PO SCH (08:59)
[2017-08-17] MEDS: CLOPIDOGREL 75 MG TABLET PO SCH (08:59)
[2017-08-17] MEDS: ENOXAPARIN 30 MG/0.3 ML SYRINGE SUBCUT SCH (08:59)
[2017-08-17] MEDS: CARVEDILOL 6.25 MG TABLET PO SCH ×2 (08:59→21:14)
[2017-08-17] MEDS: PANTOPRAZOLE 40 MG TABLET PO SCH ×2 (08:59→21:14)
[2017-08-17] MEDS: DIGOXIN 0.125 MG TABLET PO SCH (12:28)
[2017-08-17] MEDS: FUROSEMIDE 20 MG TABLET PO SCH (15:27)
[2017-08-17] MEDS: DONEPEZIL 10 MG TABLET PO SCH (21:13)
[2017-08-17] MEDS: hydrALAZINE 20 MG/1 ML VIAL IV PRN (23:48)
[2017-08-18] MEDS: ALBUTEROL/IPRATROPIUM 3 ML NEB RESP TX SCH ×3 (00:30→14:22)
[2017-08-18 05:31] LABS: Basophils # 0.1 10*3/uL (0.0-0.2); Basophils % 0.9 % (0.0-0.8); Eosinophils # 0.5 10*3/uL (0.0-0.87); Hematocrit 28.3 VOL% (35.7-47.0); Hemoglobin 9.3 GM/DL (12.0-16.0); Immature Granulocytes % 0.7 %; Immature Granulocytes Absolute 0.05 #; Lymphocytes # 1.8 10*3/uL (1.4-4.0); Lymphocytes % 27.3 % (21.3-54.2); Mean Corpuscular HGB Conc 32.9 GM/DL (32-36); Mean Corpuscular Hemoglobin 28 PG (27-34); Mean Corpuscular Volume 86.5 FL (87-102); Mean Platelet Volume 10.6 FL (9.6-12.0); Monocytes # 0.6 10*3/uL (0.11-0.8); Monocytes % 8.1 % (1.7-12.7); Neutrophils # 3.7 10*3/uL (1.4-7.4); Platelet Count 272 T/CUMM (130-400); Red Blood Count 3.27 MC/CUMM (3.8-5.5); Red Cell Distribution Width 13.5 % (9.3-17.3); White Blood Count 6.8 T/CUMM (4-12)
[2017-08-18] MEDS: LEVOTHYROXINE 75 MCG TABLET PO SCH (05:49)
[2017-08-18 05:59] LABS: Calcium 8.1 MG/DL (8.5-10.1); Potassium 3.7 MMOL/L (3.5-5.1)
[2017-08-18] MEDS: FENOFIBRATE 145 MG TABLET PO SCH (09:17)
[2017-08-18] MEDS: GABAPENTIN 100 MG CAPSULE PO SCH ×2 (09:17→21:22)
[2017-08-18] MEDS: SOLIFENACIN 5 MG TABLET PO SCH (09:17)
[2017-08-18] MEDS: amLODIPine 10 MG TABLET PO SCH (09:17)
[2017-08-18] MEDS: FUROSEMIDE 40 MG TABLET PO SCH (09:18)
[2017-08-18] MEDS: PARoxetine 20 MG TABLET PO SCH (09:18)
[2017-08-18] MEDS: LORATADINE 10 MG TABLET PO SCH (09:18)
[2017-08-18] MEDS: MULTIVITAMIN (CENTRUM) TABLET PO SCH (09:18)
[2017-08-18] MEDS: POTASSIUM CHLORIDE 20 MEQ TABLET PO SCH ×2 (09:18→21:22)
[2017-08-18] MEDS: rOPINIRole 0.25 MG TABLET PO SCH ×3 (09:18→21:22)
[2017-08-18] MEDS: ASPIRIN EC 81 MG TABLET PO SCH (09:18)
[2017-08-18] MEDS: ATORVASTATIN 20 MG TABLET PO SCH (09:18)
[2017-08-18] MEDS: ENOXAPARIN 30 MG/0.3 ML SYRINGE SUBCUT SCH (09:18)
[2017-08-18] MEDS: ISOSORBIDE MONONITRATE 30 MG TABLET PO SCH (09:18)
[2017-08-18] MEDS: MAGNESIUM OXIDE 400 MG TABLET PO SCH (09:18)
[2017-08-18] MEDS: DOCUSATE SODIUM 100 MG CAPSULE PO SCH ×2 (09:18→21:21)
[2017-08-18] MEDS: PANTOPRAZOLE 40 MG TABLET PO SCH ×2 (09:18→21:22)
[2017-08-18] MEDS: CLOPIDOGREL 75 MG TABLET PO SCH (09:18)
[2017-08-18] MEDS: INSULIN REGULAR 100 UNIT/ML SUBCUT SCH ×4 (09:34→21:26)
[2017-08-18] MEDS: PIPERACILLIN/TAZOBACTAM 3,375 MG in SODIUM CHLORIDE 0.9% 100 ML IV SCH ×2 (10:16→21:19)
[2017-08-18] MEDS: MINOXIDIL 2.5 MG TABLET PO SCH ×2 (16:15→21:25)
[2017-08-18] MEDS: FUROSEMIDE 20 MG TABLET PO SCH (16:15)
[2017-08-18] MEDS: DONEPEZIL 10 MG TABLET PO SCH (21:22)
[2017-08-19] MEDS: ALBUTEROL/IPRATROPIUM 3 ML NEB RESP TX SCH ×2 (01:16→07:20)
[2017-08-19] MEDS: LEVOTHYROXINE 75 MCG TABLET PO SCH (06:36)
[2017-08-19 06:40] LABS: Calcium 8.4 MG/DL (8.5-10.1); Osmolality,Calculated 286.8 MOS/KG (273-304)
[2017-08-19] MEDS: MINOXIDIL 2.5 MG TABLET PO SCH (08:42)
[2017-08-19] MEDS: PANTOPRAZOLE 40 MG TABLET PO SCH (08:43)
[2017-08-19] MEDS: amLODIPine 10 MG TABLET PO SCH (08:43)
[2017-08-19] MEDS: ASPIRIN EC 81 MG TABLET PO SCH (08:43)
[2017-08-19] MEDS: GABAPENTIN 100 MG CAPSULE PO SCH (08:43)
[2017-08-19] MEDS: FUROSEMIDE 40 MG TABLET PO SCH (08:43)
[2017-08-19] MEDS: rOPINIRole 0.25 MG TABLET PO SCH (08:43)
[2017-08-19] MEDS: ATORVASTATIN 20 MG TABLET PO SCH (08:43)
[2017-08-19] MEDS: DOCUSATE SODIUM 100 MG CAPSULE PO SCH (08:43)
[2017-08-19] MEDS: MULTIVITAMIN (CENTRUM) TABLET PO SCH (08:43)
[2017-08-19] MEDS: SOLIFENACIN 5 MG TABLET PO SCH (08:43)
[2017-08-19] MEDS: PARoxetine 20 MG TABLET PO SCH (08:43)
[2017-08-19] MEDS: FENOFIBRATE 145 MG TABLET PO SCH (08:43)
[2017-08-19] MEDS: POTASSIUM CHLORIDE 20 MEQ TABLET PO SCH (08:43)
[2017-08-19] MEDS: LORATADINE 10 MG TABLET PO SCH (08:44)
[2017-08-19] MEDS: CLOPIDOGREL 75 MG TABLET PO SCH (08:44)
[2017-08-19] MEDS: PIPERACILLIN/TAZOBACTAM 3,375 MG in SODIUM CHLORIDE 0.9% 100 ML IV SCH (08:44)
[2017-08-19] MEDS: MAGNESIUM OXIDE 400 MG TABLET PO SCH (08:44)
[2017-08-19] MEDS: ENOXAPARIN 30 MG/0.3 ML SYRINGE SUBCUT SCH (08:44)
[2017-08-19] MEDS: ISOSORBIDE MONONITRATE 30 MG TABLET PO SCH (08:44)
[2017-08-19] MEDS: INSULIN REGULAR 100 UNIT/ML SUBCUT SCH ×2 (08:56→11:46)
[2017-08-19 11:57] VITALS: BP 164/65
== END 2017-08-19 12:09 | DRG 637 ==
LOC: N.EDINP 17:46 → N.ED 17:46 → N.2E 23:02
PROVIDERS: ADMIT Internal Medicine; ATTEND Internal Medicine

== ENCOUNTER 2017-08-30 14:27 | Inpatient (IN) ==
[2017-08-30] MEDS ORDERED: SODIUM CHLORIDE 0.9% 500 ML IV STA (15:23)
[2017-08-30 15:43] LABS: Basophils # 0.1 10*3/uL (0.0-0.2); Basophils % 1.3 % (0.0-0.8); Eosinophils # 0.3 10*3/uL (0.0-0.87); Eosinophils % 5.4 % (0.00-10.9); Hematocrit 26.6 VOL% (35.7-47.0); Hemoglobin 8.5 GM/DL (12.0-16.0); Immature Granulocytes % 1.9 %; Lymphocytes # 1.3 10*3/uL (1.4-4.0); Lymphocytes % 24.2 % (21.3-54.2); Mean Corpuscular Hemoglobin 28 PG (27-34); Mean Corpuscular Volume 88.1 FL (87-102); Mean Platelet Volume 9.7 FL (9.6-12.0); Monocytes # 0.3 10*3/uL (0.11-0.8); Neutrophils # 3.2 10*3/uL (1.4-7.4); Neutrophils % 62.2 % (38.7-73.9); Platelet Count 385 T/CUMM (130-400); Red Blood Count 3.02 MC/CUMM (3.8-5.5); Red Cell Distribution Width 14.1 % (9.3-17.3); White Blood Count 5.2 T/CUMM (4-12)
[2017-08-30 17:02] LABS: Apearance,Urine CLOUDY (Clear); Bacteria,Urine Few /HPF (Few); Bilirubin,Urine Negative (Negative); Blood, Urine Negative (Negative); Glucose,Urine (UA) Negative (Negative); Ketones,Urine Negative (Negative); Nitrite,Urine Negative (Negative); Protein,Urine 30 MG/DL; RBC,Urine 12 /HPF (0-4); Urine Color Yellow (Yellow); Urine Specific Gravity 1.009 (1.001-1.035); Urine Urobilinogen < 2.0 EU/DL (0.2-1.0); WBC,Urine 37 /HPF (0-6)
[2017-08-30 17:04] LABS: Bilirubin,Total 0.4 MG/DL (0.2-1.0); Calcium 8.5 MG/DL (8.5-10.1); Osmolality,Calculated 282.4 MOS/KG (273-304); Potassium 5.2 MMOL/L (3.5-5.1); Total Protein 7.4 G/DL (6.4-8.3)
[2017-08-30] MEDS ORDERED: SODIUM CHLORIDE 0.9% 1,000 ML IV PRN (17:36)
[2017-08-30] MEDS ORDERED: LORazepam 0.5 MG TABLET PO PRN (17:43)
[2017-08-30] MEDS ORDERED: PIPERACILLIN/TAZOBACTAM 3,375 MG VIAL IV ONE (18:53)
[2017-08-30] MEDS: PIPERACILLIN/TAZOBACTAM 3,375 MG in SODIUM CHLORIDE 0.9% 100 ML IV SCH (19:09)
[2017-08-30] MEDS ORDERED: NON-FORMULARY MEDICATION (Omeprazole [Omeprazole] 40 MG) PO SCH (21:00)
[2017-08-30] MEDS: GABAPENTIN 100 MG CAPSULE PO SCH (21:19)
[2017-08-30] MEDS: MINOXIDIL 2.5 MG TABLET PO SCH (21:19)
[2017-08-30] MEDS: DONEPEZIL 10 MG TABLET PO SCH (21:19)
[2017-08-30] MEDS: rOPINIRole 0.25 MG TABLET PO SCH (21:20)
[2017-08-30] MEDS: DOCUSATE SODIUM 100 MG CAPSULE PO SCH (21:20)
[2017-08-30] MEDS: ATORVASTATIN 20 MG TABLET PO SCH (21:20)
[2017-08-30] MEDS: ALBUTEROL/IPRATROPIUM 3 ML NEB RESP TX SCH (23:40)
[2017-08-31] MEDS: PIPERACILLIN/TAZOBACTAM 3,375 MG in SODIUM CHLORIDE 0.9% 100 ML IV SCH ×2 (02:30→13:44)
[2017-08-31 03:40] LABS: Basophils # 0.1 10*3/uL (0.0-0.2); Basophils % 1.6 % (0.0-0.8); Eosinophils # 0.2 10*3/uL (0.0-0.87); Eosinophils % 4.1 % (0.00-10.9); Hematocrit 25.8 VOL% (35.7-47.0); Hemoglobin 8.1 GM/DL (12.0-16.0); Immature Granulocytes % 1.9 %; Lymphocytes # 1.3 10*3/uL (1.4-4.0); Mean Corpuscular HGB Conc 31.4 GM/DL (32-36); Mean Corpuscular Hemoglobin 28 PG (27-34); Mean Corpuscular Volume 88.1 FL (87-102); Monocytes # 0.3 10*3/uL (0.11-0.8); Monocytes % 6.2 % (1.7-12.7); Neutrophils # 3.2 10*3/uL (1.4-7.4); Neutrophils % 61.2 % (38.7-73.9); Platelet Count 364 T/CUMM (130-400); Red Blood Count 2.93 MC/CUMM (3.8-5.5); Red Cell Distribution Width 14.1 % (9.3-17.3); White Blood Count 5.2 T/CUMM (4-12)
[2017-08-31] MEDS: LEVOTHYROXINE 75 MCG TABLET PO SCH (06:54)
[2017-08-31] MEDS: ALBUTEROL/IPRATROPIUM 3 ML NEB RESP TX SCH ×3 (07:38→23:34)
[2017-08-31] MEDS ORDERED: BISACODYL 10 MG SUPP RECTAL ONE (08:37)
[2017-08-31] MEDS: amLODIPine 10 MG TABLET PO SCH (08:42)
[2017-08-31] MEDS: MULTIVITAMIN (CENTRUM) TABLET PO SCH (08:42)
[2017-08-31] MEDS: GABAPENTIN 100 MG CAPSULE PO SCH ×2 (08:42→21:25)
[2017-08-31] MEDS: SOLIFENACIN 5 MG TABLET PO SCH (08:42)
[2017-08-31] MEDS: DOCUSATE SODIUM 100 MG CAPSULE PO SCH ×2 (08:42→21:25)
[2017-08-31] MEDS: MINOXIDIL 2.5 MG TABLET PO SCH ×2 (08:42→21:24)
[2017-08-31] MEDS: PANTOPRAZOLE 40 MG TABLET PO SCH (08:42)
[2017-08-31] MEDS: rOPINIRole 0.25 MG TABLET PO SCH ×3 (08:43→21:25)
[2017-08-31] MEDS: ISOSORBIDE MONONITRATE 30 MG TABLET PO SCH (08:43)
[2017-08-31] MEDS: PARoxetine 20 MG TABLET PO SCH (08:43)
[2017-08-31] MEDS: LORATADINE 10 MG TABLET PO SCH (08:43)
[2017-08-31] MEDS: CLOPIDOGREL 75 MG TABLET PO SCH (08:43)
[2017-08-31] MEDS: MAGNESIUM OXIDE 400 MG TABLET PO SCH (08:43)
[2017-08-31] MEDS: FENOFIBRATE 145 MG TABLET PO SCH (08:46)
[2017-08-31] MEDS: ASPIRIN EC 81 MG TABLET PO SCH (08:46)
[2017-08-31] MEDS ORDERED: FUROSEMIDE 40 MG TABLET PO SCH (09:00)
[2017-08-31] MEDS ORDERED: DOCUSATE SODIUM 100 MG CAPSULE PO SCH (09:00)
[2017-08-31] MEDS: ENOXAPARIN 30 MG/0.3 ML SYRINGE SUBCUT SCH (09:48)
[2017-08-31] MEDS ORDERED: SODIUM CHLORIDE 0.9% 1,000 ML IV PRN (10:10)
[2017-08-31] MEDS ORDERED: FUROSEMIDE 20 MG/2 ML VIAL IV ONE ×2 (10:38→14:51)
[2017-08-31] MEDS ORDERED: VANCOMYCIN INJ 1,000 MG in SODIUM CHLORIDE 0.9% 250 ML IV SCH (11:00)
[2017-08-31] MEDS: DONEPEZIL 10 MG TABLET PO SCH (21:24)
[2017-08-31] MEDS: ATORVASTATIN 20 MG TABLET PO SCH (21:25)
[2017-08-31] MEDS: ONDANSETRON 4 MG/2 ML VIAL IV PRN (21:40)
[2017-08-31] MEDS: NITROGLYCERIN SL 0.4 MG TABLET SL PRN ×2 (22:35→22:40)
[2017-08-31] MEDS ORDERED: ASPIRIN 325 MG TABLET ONE (23:02)
[2017-08-31] MEDS ORDERED: ASPIRIN EC 325 MG TABLET PO ONE (23:43)
[2017-09-01] MEDS ORDERED: MORPHINE 4 MG/1 ML VIAL IV PRN (00:07)
[2017-09-01] MEDS ORDERED: FUROSEMIDE 40 MG/4 ML VIAL IV ONE (00:30)
[2017-09-01] MEDS: PIPERACILLIN/TAZOBACTAM 3,375 MG in SODIUM CHLORIDE 0.9% 100 ML IV SCH ×2 (02:47→15:59)
[2017-09-01 05:41] LABS: Albumin 2.7 G/DL (3.4-5.0); Bilirubin,Total 1.2 MG/DL (0.2-1.0); Calcium 8.2 MG/DL (8.5-10.1); Potassium 4.6 MMOL/L (3.5-5.1); Total Protein 6.6 G/DL (6.4-8.3)
[2017-09-01] MEDS: LEVOTHYROXINE 75 MCG TABLET PO SCH (05:41)
[2017-09-01 05:52] LABS: Troponin I Only 1.48 NG/ML (0.00-0.045)
[2017-09-01] MEDS: ALBUTEROL/IPRATROPIUM 3 ML NEB RESP TX SCH ×3 (07:30→14:37)
[2017-09-01 09:02] LABS: Hematocrit 30.1 VOL% (35.7-47.0); Hemoglobin 9.8 GM/DL (12.0-16.0)
[2017-09-01] MEDS: FUROSEMIDE 40 MG/4 ML VIAL IV SCH ×2 (09:22→15:58)
[2017-09-01] MEDS: ENOXAPARIN 30 MG/0.3 ML SYRINGE SUBCUT SCH (09:23)
[2017-09-01] MEDS: CARVEDILOL 3.125 MG TABLET PO SCH ×2 (12:16→21:38)
[2017-09-01] MEDS: PARoxetine 20 MG TABLET PO SCH (12:16)
[2017-09-01] MEDS: FENOFIBRATE 145 MG TABLET PO SCH (12:16)
[2017-09-01] MEDS: LORATADINE 10 MG TABLET PO SCH (12:17)
[2017-09-01] MEDS: amLODIPine 10 MG TABLET PO SCH (12:17)
[2017-09-01] MEDS: MULTIVITAMIN (CENTRUM) TABLET PO SCH (12:17)
[2017-09-01] MEDS: PANTOPRAZOLE 40 MG TABLET PO SCH (12:17)
[2017-09-01] MEDS: CLOPIDOGREL 75 MG TABLET PO SCH (12:17)
[2017-09-01] MEDS: ASPIRIN EC 81 MG TABLET PO SCH (12:18)
[2017-09-01] MEDS: DOCUSATE SODIUM 100 MG CAPSULE PO SCH ×2 (12:18→21:37)
[2017-09-01] MEDS: MAGNESIUM OXIDE 400 MG TABLET PO SCH (12:18)
[2017-09-01] MEDS: ISOSORBIDE MONONITRATE 30 MG TABLET PO SCH (12:19)
[2017-09-01] MEDS: rOPINIRole 0.25 MG TABLET PO SCH ×3 (12:19→21:38)
[2017-09-01] MEDS: SOLIFENACIN 5 MG TABLET PO SCH (12:19)
[2017-09-01] MEDS: GABAPENTIN 100 MG CAPSULE PO SCH ×2 (13:08→21:37)
[2017-09-01] MEDS: MINOXIDIL 2.5 MG TABLET PO SCH (13:08)
[2017-09-01 13:11] LABS: CKMB % 2.6 %; Troponin I Only 1.41 NG/ML (0.00-0.045)
[2017-09-01] MEDS: ATORVASTATIN 20 MG TABLET PO SCH (21:38)
[2017-09-01] MEDS: DONEPEZIL 10 MG TABLET PO SCH (21:38)
[2017-09-02] MEDS: ALBUTEROL/IPRATROPIUM 3 ML NEB RESP TX SCH ×3 (00:22→14:13)
[2017-09-02] MEDS: PIPERACILLIN/TAZOBACTAM 3,375 MG in SODIUM CHLORIDE 0.9% 100 ML IV SCH ×2 (02:43→12:58)
[2017-09-02 05:51] LABS: Basophils # 0.1 10*3/uL (0.0-0.2); Basophils % 1.3 % (0.0-0.8); Eosinophils # 0.5 10*3/uL (0.0-0.87); Eosinophils % 6.7 % (0.00-10.9); Hematocrit 29.4 VOL% (35.7-47.0); Hemoglobin 9.5 GM/DL (12.0-16.0); Immature Granulocytes % 0.7 %; Immature Granulocytes Absolute 0.05 #; Lymphocytes # 1.2 10*3/uL (1.4-4.0); Lymphocytes % 17.7 % (21.3-54.2); Mean Corpuscular HGB Conc 32.3 GM/DL (32-36); Mean Corpuscular Hemoglobin 28 PG (27-34); Mean Platelet Volume 10.3 FL (9.6-12.0); Monocytes # 0.5 10*3/uL (0.11-0.8); Monocytes % 6.7 % (1.7-12.7); Neutrophils # 4.5 10*3/uL (1.4-7.4); Neutrophils % 66.9 % (38.7-73.9); Platelet Count 278 T/CUMM (130-400); Red Blood Count 3.34 MC/CUMM (3.8-5.5); Red Cell Distribution Width 14.5 % (9.3-17.3); White Blood Count 6.7 T/CUMM (4-12)
[2017-09-02 06:11] LABS: Risk Ratio 2.42; VLDL CHOLESTEROL 19.4 MG/DL
[2017-09-02 06:20] LABS: Calcium 7.9 MG/DL (8.5-10.1); Osmolality,Calculated 292.5 MOS/KG (273-304); Potassium 3.4 MMOL/L (3.5-5.1)
[2017-09-02] MEDS: LEVOTHYROXINE 75 MCG TABLET PO SCH (06:42)
[2017-09-02] MEDS: ISOSORBIDE MONONITRATE 30 MG TABLET PO SCH (09:17)
[2017-09-02] MEDS: metOLazone 5 MG TABLET PO SCH (09:17)
[2017-09-02] MEDS: MULTIVITAMIN (CENTRUM) TABLET PO SCH (09:17)
[2017-09-02] MEDS: rOPINIRole 0.25 MG TABLET PO SCH ×3 (09:17→20:33)
[2017-09-02] MEDS: FUROSEMIDE 40 MG/4 ML VIAL IV SCH ×2 (09:17→16:27)
[2017-09-02] MEDS: DOCUSATE SODIUM 100 MG CAPSULE PO SCH ×2 (09:17→20:33)
[2017-09-02] MEDS: FENOFIBRATE 145 MG TABLET PO SCH (09:18)
[2017-09-02] MEDS: SOLIFENACIN 5 MG TABLET PO SCH (09:18)
[2017-09-02] MEDS: ASPIRIN EC 81 MG TABLET PO SCH (09:18)
[2017-09-02] MEDS: amLODIPine 10 MG TABLET PO SCH (09:18)
[2017-09-02] MEDS: MAGNESIUM OXIDE 400 MG TABLET PO SCH (09:18)
[2017-09-02] MEDS: PARoxetine 20 MG TABLET PO SCH (09:19)
[2017-09-02] MEDS: CLOPIDOGREL 75 MG TABLET PO SCH (09:19)
[2017-09-02] MEDS: ENOXAPARIN 30 MG/0.3 ML SYRINGE SUBCUT SCH (09:19)
[2017-09-02] MEDS: CARVEDILOL 3.125 MG TABLET PO SCH (09:19)
[2017-09-02] MEDS ORDERED: VANCOMYCIN INJ 1,000 MG in SODIUM CHLORIDE 0.9% 250 ML IV PRN (09:52)
[2017-09-02] MEDS: LORATADINE 10 MG TABLET PO SCH (10:01)
[2017-09-02] MEDS: PANTOPRAZOLE 40 MG TABLET PO SCH (10:02)
[2017-09-02] MEDS: GABAPENTIN 100 MG CAPSULE PO SCH ×2 (10:02→20:33)
[2017-09-02] MEDS ORDERED: VANCOMYCIN INJ 1,500 MG in SODIUM CHLORIDE 0.9% 500 ML IV ONE ×2 (13:30→17:00)
[2017-09-02] MEDS: MORPHINE 4 MG/1 ML VIAL IV PRN (15:13)
[2017-09-02] MEDS: CARVEDILOL 6.25 MG TABLET PO SCH (20:33)
[2017-09-02] MEDS: DONEPEZIL 10 MG TABLET PO SCH (20:33)
[2017-09-02] MEDS: ATORVASTATIN 20 MG TABLET PO SCH (20:33)
[2017-09-03] MEDS: ALBUTEROL/IPRATROPIUM 3 ML NEB RESP TX SCH ×4 (00:26→23:39)
[2017-09-03] MEDS: MORPHINE 4 MG/1 ML VIAL IV PRN ×2 (02:26→06:54)
[2017-09-03] MEDS: PIPERACILLIN/TAZOBACTAM 3,375 MG in SODIUM CHLORIDE 0.9% 100 ML IV SCH ×2 (02:50→16:56)
[2017-09-03 05:55] LABS: Basophils # 0.1 10*3/uL (0.0-0.2); Basophils % 0.8 % (0.0-0.8); Eosinophils # 0.3 10*3/uL (0.0-0.87); Eosinophils % 3.8 % (0.00-10.9); Hematocrit 30.4 VOL% (35.7-47.0); Hemoglobin 10.4 GM/DL (12.0-16.0); Immature Granulocytes % 0.8 %; Immature Granulocytes Absolute 0.05 #; Lymphocytes % 14.6 % (21.3-54.2); Mean Corpuscular HGB Conc 34.2 GM/DL (32-36); Mean Corpuscular Hemoglobin 29 PG (27-34); Mean Corpuscular Volume 84.7 FL (87-102); Mean Platelet Volume 10.5 FL (9.6-12.0); Monocytes # 0.4 10*3/uL (0.11-0.8); Monocytes % 6.3 % (1.7-12.7); Neutrophils # 4.8 10*3/uL (1.4-7.4); Neutrophils % 73.7 % (38.7-73.9); Platelet Count 307 T/CUMM (130-400); Red Blood Count 3.59 MC/CUMM (3.8-5.5); Red Cell Distribution Width 14.2 % (9.3-17.3); White Blood Count 6.5 T/CUMM (4-12)
[2017-09-03] MEDS: LEVOTHYROXINE 75 MCG TABLET PO SCH (05:56)
[2017-09-03 06:03] LABS: Calcium 8.5 MG/DL (8.5-10.1); Osmolality,Calculated 292.7 MOS/KG (273-304)
[2017-09-03 06:04] LABS: Calcium 8.4 MG/DL (8.5-10.1); Osmolality,Calculated 295.5 MOS/KG (273-304)
[2017-09-03] MEDS ORDERED: POTASSIUM CHLORIDE RIDER 20 MEQ in PREMIX 1 EACH IV PRN (07:00)
[2017-09-03] MEDS: FUROSEMIDE 40 MG/4 ML VIAL IV SCH ×2 (09:07→16:56)
[2017-09-03] MEDS: ENOXAPARIN 30 MG/0.3 ML SYRINGE SUBCUT SCH (09:07)
[2017-09-03] MEDS: amLODIPine 10 MG TABLET PO SCH (09:08)
[2017-09-03] MEDS: CLOPIDOGREL 75 MG TABLET PO SCH (09:08)
[2017-09-03] MEDS: MULTIVITAMIN (CENTRUM) TABLET PO SCH (09:08)
[2017-09-03] MEDS: PANTOPRAZOLE 40 MG TABLET PO SCH (09:08)
[2017-09-03] MEDS: rOPINIRole 0.25 MG TABLET PO SCH ×3 (09:08→21:51)
[2017-09-03] MEDS: ASPIRIN EC 81 MG TABLET PO SCH (09:08)
[2017-09-03] MEDS: LORATADINE 10 MG TABLET PO SCH (09:08)
[2017-09-03] MEDS: FENOFIBRATE 145 MG TABLET PO SCH (09:08)
[2017-09-03] MEDS: MAGNESIUM OXIDE 400 MG TABLET PO SCH (09:08)
[2017-09-03] MEDS: DOCUSATE SODIUM 100 MG CAPSULE PO SCH ×2 (09:08→21:52)
[2017-09-03] MEDS: GABAPENTIN 100 MG CAPSULE PO SCH ×2 (09:09→21:51)
[2017-09-03] MEDS: ISOSORBIDE MONONITRATE 30 MG TABLET PO SCH (09:09)
[2017-09-03] MEDS: CARVEDILOL 6.25 MG TABLET PO SCH (09:09)
[2017-09-03] MEDS: SOLIFENACIN 5 MG TABLET PO SCH (09:09)
[2017-09-03] MEDS: POTASSIUM CHLORIDE 20 MEQ TABLET PO SCH ×2 (09:09→21:52)
[2017-09-03] MEDS: metOLazone 5 MG TABLET PO SCH (09:09)
[2017-09-03] MEDS: PARoxetine 20 MG TABLET PO SCH (09:09)
[2017-09-03 09:49] LABS: Troponin I Only 0.813 NG/ML (0.00-0.045)
[2017-09-03] MEDS: ATORVASTATIN 20 MG TABLET PO SCH (21:51)
[2017-09-03] MEDS: CARVEDILOL 12.5 MG TABLET PO SCH (21:52)
[2017-09-03] MEDS: DONEPEZIL 10 MG TABLET PO SCH (21:52)
[2017-09-04] MEDS: PIPERACILLIN/TAZOBACTAM 3,375 MG in SODIUM CHLORIDE 0.9% 100 ML IV SCH ×2 (03:23→14:47)
[2017-09-04] MEDS: ACETAMINOPHEN 325 MG TABLET PO PRN (04:40)
[2017-09-04 05:00] LABS: Basophils # 0.1 10*3/uL (0.0-0.2); Basophils % 0.9 % (0.0-0.8); Eosinophils # 0.4 10*3/uL (0.0-0.87); Eosinophils % 5.8 % (0.00-10.9); Hematocrit 32.6 VOL% (35.7-47.0); Hemoglobin 10.9 GM/DL (12.0-16.0); Immature Granulocytes % 0.8 %; Immature Granulocytes Absolute 0.06 #; Lymphocytes # 1.1 10*3/uL (1.4-4.0); Mean Corpuscular HGB Conc 33.4 GM/DL (32-36); Mean Corpuscular Hemoglobin 29 PG (27-34); Mean Corpuscular Volume 86.2 FL (87-102); Mean Platelet Volume 10.5 FL (9.6-12.0); Monocytes # 0.6 10*3/uL (0.11-0.8); Monocytes % 7.6 % (1.7-12.7); Neutrophils # 5.2 10*3/uL (1.4-7.4); Neutrophils % 69.9 % (38.7-73.9); Platelet Count 298 T/CUMM (130-400); Red Blood Count 3.78 MC/CUMM (3.8-5.5); Red Cell Distribution Width 14.2 % (9.3-17.3); White Blood Count 7.5 T/CUMM (4-12)
[2017-09-04 05:26] LABS: Calcium 8.5 MG/DL (8.5-10.1); Osmolality,Calculated 300.3 MOS/KG (273-304)
[2017-09-04] MEDS: LEVOTHYROXINE 75 MCG TABLET PO SCH (06:20)
[2017-09-04] MEDS: ALBUTEROL/IPRATROPIUM 3 ML NEB RESP TX SCH ×2 (07:21→15:39)
[2017-09-04] MEDS: FENOFIBRATE 145 MG TABLET PO SCH (09:13)
[2017-09-04] MEDS: MAGNESIUM OXIDE 400 MG TABLET PO SCH (09:13)
[2017-09-04] MEDS: PARoxetine 20 MG TABLET PO SCH (09:13)
[2017-09-04] MEDS: ASPIRIN EC 81 MG TABLET PO SCH (09:13)
[2017-09-04] MEDS: metOLazone 5 MG TABLET PO SCH (09:13)
[2017-09-04] MEDS: SOLIFENACIN 5 MG TABLET PO SCH (09:13)
[2017-09-04] MEDS: amLODIPine 10 MG TABLET PO SCH (09:13)
[2017-09-04] MEDS: PANTOPRAZOLE 40 MG TABLET PO SCH (09:14)
[2017-09-04] MEDS: CARVEDILOL 12.5 MG TABLET PO SCH ×2 (09:14→21:04)
[2017-09-04] MEDS: rOPINIRole 0.25 MG TABLET PO SCH ×3 (09:14→21:04)
[2017-09-04] MEDS: MULTIVITAMIN (CENTRUM) TABLET PO SCH (09:14)
[2017-09-04] MEDS: POTASSIUM CHLORIDE 20 MEQ TABLET PO SCH ×2 (09:14→21:04)
[2017-09-04] MEDS: GABAPENTIN 100 MG CAPSULE PO SCH ×2 (09:14→21:04)
[2017-09-04] MEDS: ISOSORBIDE MONONITRATE 30 MG TABLET PO SCH (09:14)
[2017-09-04] MEDS: DOCUSATE SODIUM 100 MG CAPSULE PO SCH ×2 (09:15→21:04)
[2017-09-04] MEDS: ENOXAPARIN 30 MG/0.3 ML SYRINGE SUBCUT SCH (09:15)
[2017-09-04] MEDS: FUROSEMIDE 40 MG/4 ML VIAL IV SCH ×2 (09:15→16:48)
[2017-09-04] MEDS: LORATADINE 10 MG TABLET PO SCH (09:15)
[2017-09-04] MEDS: CLOPIDOGREL 75 MG TABLET PO SCH (09:16)
[2017-09-04] MEDS ORDERED: VANCOMYCIN INJ 1,000 MG in SODIUM CHLORIDE 0.9% 250 ML IV ONE (12:00)
[2017-09-04] MEDS: DONEPEZIL 10 MG TABLET PO SCH (21:04)
[2017-09-04] MEDS: ATORVASTATIN 20 MG TABLET PO SCH (21:05)
[2017-09-04] MEDS: ONDANSETRON 4 MG/2 ML VIAL IV PRN (23:32)
[2017-09-05] MEDS: ALBUTEROL/IPRATROPIUM 3 ML NEB RESP TX SCH ×3 (00:21→14:39)
[2017-09-05] MEDS: PIPERACILLIN/TAZOBACTAM 3,375 MG in SODIUM CHLORIDE 0.9% 100 ML IV SCH ×2 (02:24→13:39)
[2017-09-05 04:56] LABS: Basophils # 0.1 10*3/uL (0.0-0.2); Basophils % 1.1 % (0.0-0.8); Eosinophils # 0.6 10*3/uL (0.0-0.87); Hematocrit 31.8 VOL% (35.7-47.0); Hemoglobin 10.5 GM/DL (12.0-16.0); Immature Granulocytes % 0.5 %; Immature Granulocytes Absolute 0.03 #; Lymphocytes # 1.5 10*3/uL (1.4-4.0); Mean Corpuscular Hemoglobin 29 PG (27-34); Mean Corpuscular Volume 86.2 FL (87-102); Mean Platelet Volume 10.5 FL (9.6-12.0); Monocytes # 0.5 10*3/uL (0.11-0.8); Monocytes % 8.1 % (1.7-12.7); Neutrophils % 53.3 % (38.7-73.9); Platelet Count 269 T/CUMM (130-400); Red Blood Count 3.69 MC/CUMM (3.8-5.5); Red Cell Distribution Width 14.1 % (9.3-17.3); White Blood Count 5.7 T/CUMM (4-12)
[2017-09-05 05:20] LABS: Eosinophils 16 % (0-10); Giant Platelets Few; Hypochromasia 1+; Lymphocytes 19 % (20-55); Ovalocytes Slight; Platelet Estimate Adequate; Segmented Neutrophils 60 % (50-85); Total Cells Counted 100
[2017-09-05 05:46] LABS: Calcium 8.7 MG/DL (8.5-10.1); Osmolality,Calculated 292.7 MOS/KG (273-304); Potassium 3.2 MMOL/L (3.5-5.1)
[2017-09-05] MEDS: LEVOTHYROXINE 75 MCG TABLET PO SCH (06:25)
[2017-09-05] MEDS: ASPIRIN EC 81 MG TABLET PO SCH (08:41)
[2017-09-05] MEDS: ENOXAPARIN 30 MG/0.3 ML SYRINGE SUBCUT SCH (08:41)
[2017-09-05] MEDS: CLOPIDOGREL 75 MG TABLET PO SCH (08:42)
[2017-09-05] MEDS: PANTOPRAZOLE 40 MG TABLET PO SCH (08:42)
[2017-09-05] MEDS: DOCUSATE SODIUM 100 MG CAPSULE PO SCH ×2 (08:42→20:54)
[2017-09-05] MEDS: GABAPENTIN 100 MG CAPSULE PO SCH ×2 (08:42→20:54)
[2017-09-05] MEDS: rOPINIRole 0.25 MG TABLET PO SCH ×3 (08:42→20:54)
[2017-09-05] MEDS: POTASSIUM CHLORIDE 20 MEQ TABLET PO SCH ×2 (08:42→20:54)
[2017-09-05] MEDS: MULTIVITAMIN (CENTRUM) TABLET PO SCH (08:42)
[2017-09-05] MEDS: amLODIPine 10 MG TABLET PO SCH (08:42)
[2017-09-05] MEDS: ISOSORBIDE MONONITRATE 30 MG TABLET PO SCH (08:42)
[2017-09-05] MEDS: FENOFIBRATE 145 MG TABLET PO SCH (08:43)
[2017-09-05] MEDS: CARVEDILOL 12.5 MG TABLET PO SCH ×2 (08:43→20:54)
[2017-09-05] MEDS: LORATADINE 10 MG TABLET PO SCH (08:43)
[2017-09-05] MEDS: FUROSEMIDE 40 MG TABLET PO SCH ×2 (08:43→17:28)
[2017-09-05] MEDS: PARoxetine 20 MG TABLET PO SCH (08:43)
[2017-09-05] MEDS: MAGNESIUM OXIDE 400 MG TABLET PO SCH (09:09)
[2017-09-05] MEDS: SOLIFENACIN 5 MG TABLET PO SCH (09:39)
[2017-09-05] MEDS: ATORVASTATIN 20 MG TABLET PO SCH (20:54)
[2017-09-05] MEDS: DONEPEZIL 10 MG TABLET PO SCH (20:54)
[2017-09-06] MEDS: ALBUTEROL/IPRATROPIUM 3 ML NEB RESP TX SCH ×3 (00:04→15:10)
[2017-09-06] MEDS: PIPERACILLIN/TAZOBACTAM 3,375 MG in SODIUM CHLORIDE 0.9% 100 ML IV SCH ×2 (01:30→15:24)
[2017-09-06 05:06] LABS: Basophils # 0.1 10*3/uL (0.0-0.2); Basophils % 1.6 % (0.0-0.8); Eosinophils # 0.6 10*3/uL (0.0-0.87); Eosinophils % 11.3 % (0.00-10.9); Hematocrit 32.5 VOL% (35.7-47.0); Immature Granulocytes % 0.5 %; Immature Granulocytes Absolute 0.03 #; Lymphocytes # 1.7 10*3/uL (1.4-4.0); Lymphocytes % 30.1 % (21.3-54.2); Mean Corpuscular HGB Conc 33.8 GM/DL (32-36); Mean Corpuscular Hemoglobin 29 PG (27-34); Mean Corpuscular Volume 84.2 FL (87-102); Mean Platelet Volume 10.6 FL (9.6-12.0); Monocytes # 0.5 10*3/uL (0.11-0.8); Monocytes % 8.8 % (1.7-12.7); Neutrophils # 2.7 10*3/uL (1.4-7.4); Neutrophils % 47.7 % (38.7-73.9); Platelet Count 282 T/CUMM (130-400); Red Blood Count 3.86 MC/CUMM (3.8-5.5); White Blood Count 5.7 T/CUMM (4-12)
[2017-09-06] MEDS: LEVOTHYROXINE 75 MCG TABLET PO SCH (05:37)
[2017-09-06 05:40] LABS: Osmolality,Calculated 295.7 MOS/KG (273-304); Potassium 3.5 MMOL/L (3.5-5.1)
[2017-09-06 07:09] LABS: Eosinophils 7 % (0-10); Hypochromasia 2+; Lymphocytes 13 % (20-55); Microcytosis 1+; Platelet Estimate Adequate; Segmented Neutrophils 75 % (50-85); Total Cells Counted 100
[2017-09-06] MEDS: MULTIVITAMIN (CENTRUM) TABLET PO SCH (09:06)
[2017-09-06] MEDS: POTASSIUM CHLORIDE 20 MEQ TABLET PO SCH ×2 (09:06→21:54)
[2017-09-06] MEDS: DOCUSATE SODIUM 100 MG CAPSULE PO SCH ×2 (09:06→21:54)
[2017-09-06] MEDS: CARVEDILOL 25 MG TABLET PO SCH ×2 (09:06→22:00)
[2017-09-06] MEDS: SOLIFENACIN 5 MG TABLET PO SCH (09:06)
[2017-09-06] MEDS: GABAPENTIN 100 MG CAPSULE PO SCH ×2 (09:06→21:54)
[2017-09-06] MEDS: ASPIRIN EC 81 MG TABLET PO SCH (09:06)
[2017-09-06] MEDS: rOPINIRole 0.25 MG TABLET PO SCH ×3 (09:06→21:54)
[2017-09-06] MEDS: ISOSORBIDE MONONITRATE 30 MG TABLET PO SCH (09:06)
[2017-09-06] MEDS: ENOXAPARIN 30 MG/0.3 ML SYRINGE SUBCUT SCH (09:06)
[2017-09-06] MEDS: MAGNESIUM OXIDE 400 MG TABLET PO SCH (09:07)
[2017-09-06] MEDS: FUROSEMIDE 40 MG TABLET PO SCH ×2 (09:07→16:46)
[2017-09-06] MEDS: amLODIPine 10 MG TABLET PO SCH (09:07)
[2017-09-06] MEDS: PARoxetine 20 MG TABLET PO SCH (09:07)
[2017-09-06] MEDS: CLOPIDOGREL 75 MG TABLET PO SCH (09:07)
[2017-09-06] MEDS: PANTOPRAZOLE 40 MG TABLET PO SCH (09:07)
[2017-09-06] MEDS: LORATADINE 10 MG TABLET PO SCH (09:07)
[2017-09-06] MEDS: FENOFIBRATE 145 MG TABLET PO SCH (09:07)
[2017-09-06] MEDS ORDERED: VANCOMYCIN INJ 1,000 MG in SODIUM CHLORIDE 0.9% 250 ML IV SCH (12:00)
[2017-09-06] MEDS: DONEPEZIL 10 MG TABLET PO SCH (21:54)
[2017-09-06] MEDS: ATORVASTATIN 20 MG TABLET PO SCH (21:55)
[2017-09-07] MEDS: ALBUTEROL/IPRATROPIUM 3 ML NEB RESP TX SCH ×3 (00:11→15:00)
[2017-09-07] MEDS: PIPERACILLIN/TAZOBACTAM 3,375 MG in SODIUM CHLORIDE 0.9% 100 ML IV SCH ×2 (01:34→13:53)
[2017-09-07 06:00] LABS: Calcium 8.9 MG/DL (8.5-10.1); Osmolality,Calculated 292.1 MOS/KG (273-304); Potassium 4.8 MMOL/L (3.5-5.1)
[2017-09-07 06:57] LABS: Basophils # 0.1 10*3/uL (0.0-0.2); Basophils % 1.5 % (0.0-0.8); Eosinophils # 0.4 10*3/uL (0.0-0.87); Eosinophils % 7.2 % (0.00-10.9); Hematocrit 34.1 VOL% (35.7-47.0); Hemoglobin 11.4 GM/DL (12.0-16.0); Immature Granulocytes % 0.5 %; Immature Granulocytes Absolute 0.03 #; Lymphocytes % 32.6 % (21.3-54.2); Mean Corpuscular HGB Conc 33.4 GM/DL (32-36); Mean Corpuscular Hemoglobin 28 PG (27-34); Mean Corpuscular Volume 84.4 FL (87-102); Mean Platelet Volume 10.8 FL (9.6-12.0); Monocytes # 0.5 10*3/uL (0.11-0.8); Monocytes % 8.8 % (1.7-12.7); Neutrophils % 49.4 % (38.7-73.9); Platelet Count 271 T/CUMM (130-400); Red Blood Count 4.04 MC/CUMM (3.8-5.5); Red Cell Distribution Width 13.9 % (9.3-17.3); White Blood Count 6.1 T/CUMM (4-12)
[2017-09-07] MEDS: LEVOTHYROXINE 75 MCG TABLET PO SCH (06:58)
[2017-09-07] MEDS: ENOXAPARIN 30 MG/0.3 ML SYRINGE SUBCUT SCH (09:03)
[2017-09-07] MEDS: rOPINIRole 0.25 MG TABLET PO SCH ×3 (09:03→20:40)
[2017-09-07] MEDS: LORATADINE 10 MG TABLET PO SCH (09:03)
[2017-09-07] MEDS: SOLIFENACIN 5 MG TABLET PO SCH (09:03)
[2017-09-07] MEDS: PANTOPRAZOLE 40 MG TABLET PO SCH (09:03)
[2017-09-07] MEDS: CLOPIDOGREL 75 MG TABLET PO SCH (09:03)
[2017-09-07] MEDS: MAGNESIUM OXIDE 400 MG TABLET PO SCH (09:03)
[2017-09-07] MEDS: amLODIPine 10 MG TABLET PO SCH (09:03)
[2017-09-07] MEDS: ASPIRIN EC 81 MG TABLET PO SCH (09:04)
[2017-09-07] MEDS: ISOSORBIDE MONONITRATE 30 MG TABLET PO SCH (09:04)
[2017-09-07] MEDS: POTASSIUM CHLORIDE 20 MEQ TABLET PO SCH ×2 (09:04→20:40)
[2017-09-07] MEDS: DOCUSATE SODIUM 100 MG CAPSULE PO SCH ×2 (09:04→20:41)
[2017-09-07] MEDS: PARoxetine 20 MG TABLET PO SCH (09:04)
[2017-09-07] MEDS: MULTIVITAMIN (CENTRUM) TABLET PO SCH (09:04)
[2017-09-07] MEDS: CARVEDILOL 25 MG TABLET PO SCH ×2 (09:04→20:46)
[2017-09-07] MEDS: FUROSEMIDE 40 MG TABLET PO SCH ×2 (09:04→16:01)
[2017-09-07] MEDS: FENOFIBRATE 145 MG TABLET PO SCH (09:04)
[2017-09-07] MEDS: GABAPENTIN 100 MG CAPSULE PO SCH ×2 (09:05→20:41)
[2017-09-07] MEDS: ACETAMINOPHEN 325 MG TABLET PO PRN (16:11)
[2017-09-07] MEDS: DONEPEZIL 10 MG TABLET PO SCH (20:40)
[2017-09-07] MEDS: ATORVASTATIN 20 MG TABLET PO SCH (20:41)
[2017-09-08] MEDS: ALBUTEROL/IPRATROPIUM 3 ML NEB RESP TX SCH ×3 (00:32→15:15)
[2017-09-08] MEDS: PIPERACILLIN/TAZOBACTAM 3,375 MG in SODIUM CHLORIDE 0.9% 100 ML IV SCH ×2 (02:03→15:57)
[2017-09-08 05:21] LABS: Basophils # 0.1 10*3/uL (0.0-0.2); Basophils % 1.7 % (0.0-0.8); Eosinophils # 0.5 10*3/uL (0.0-0.87); Eosinophils % 9.5 % (0.00-10.9); Hematocrit 33.9 VOL% (35.7-47.0); Hemoglobin 11.5 GM/DL (12.0-16.0); Immature Granulocytes % 0.4 %; Immature Granulocytes Absolute 0.02 #; Lymphocytes # 1.9 10*3/uL (1.4-4.0); Mean Corpuscular HGB Conc 33.9 GM/DL (32-36); Mean Corpuscular Hemoglobin 28 PG (27-34); Mean Corpuscular Volume 83.7 FL (87-102); Mean Platelet Volume 10.4 FL (9.6-12.0); Monocytes # 0.6 10*3/uL (0.11-0.8); Monocytes % 10.5 % (1.7-12.7); Neutrophils # 2.3 10*3/uL (1.4-7.4); Neutrophils % 42.9 % (38.7-73.9); Platelet Count 265 T/CUMM (130-400); Red Blood Count 4.05 MC/CUMM (3.8-5.5); Red Cell Distribution Width 13.9 % (9.3-17.3); White Blood Count 5.5 T/CUMM (4-12)
[2017-09-08 05:50] LABS: Calcium 9.1 MG/DL (8.5-10.1); Potassium 3.9 MMOL/L (3.5-5.1)
[2017-09-08] MEDS: LEVOTHYROXINE 75 MCG TABLET PO SCH (05:52)
[2017-09-08] MEDS: ISOSORBIDE MONONITRATE 30 MG TABLET PO SCH (09:15)
[2017-09-08] MEDS: amLODIPine 10 MG TABLET PO SCH (09:15)
[2017-09-08] MEDS: SOLIFENACIN 5 MG TABLET PO SCH (09:15)
[2017-09-08] MEDS: FUROSEMIDE 40 MG TABLET PO SCH ×2 (09:15→15:57)
[2017-09-08] MEDS: CARVEDILOL 25 MG TABLET PO SCH ×2 (09:15→23:12)
[2017-09-08] MEDS: rOPINIRole 0.25 MG TABLET PO SCH ×3 (09:15→21:30)
[2017-09-08] MEDS: MAGNESIUM OXIDE 400 MG TABLET PO SCH (09:16)
[2017-09-08] MEDS: GABAPENTIN 100 MG CAPSULE PO SCH ×2 (09:16→21:30)
[2017-09-08] MEDS: PANTOPRAZOLE 40 MG TABLET PO SCH (09:16)
[2017-09-08] MEDS: FENOFIBRATE 145 MG TABLET PO SCH (09:16)
[2017-09-08] MEDS: POTASSIUM CHLORIDE 20 MEQ TABLET PO SCH ×2 (09:16→21:31)
[2017-09-08] MEDS: ENOXAPARIN 30 MG/0.3 ML SYRINGE SUBCUT SCH (09:17)
[2017-09-08] MEDS: DOCUSATE SODIUM 100 MG CAPSULE PO SCH ×2 (09:17→21:31)
[2017-09-08] MEDS: MULTIVITAMIN (CENTRUM) TABLET PO SCH (09:17)
[2017-09-08] MEDS: LORATADINE 10 MG TABLET PO SCH (09:17)
[2017-09-08] MEDS: PARoxetine 20 MG TABLET PO SCH (09:17)
[2017-09-08] MEDS: CLOPIDOGREL 75 MG TABLET PO SCH (09:18)
[2017-09-08] MEDS: ASPIRIN EC 81 MG TABLET PO SCH (09:18)
[2017-09-08] MEDS: ATORVASTATIN 20 MG TABLET PO SCH (21:30)
[2017-09-08] MEDS: DONEPEZIL 10 MG TABLET PO SCH (21:30)
[2017-09-09] MEDS: ALBUTEROL/IPRATROPIUM 3 ML NEB RESP TX SCH ×2 (01:24→07:15)
[2017-09-09] MEDS: PIPERACILLIN/TAZOBACTAM 3,375 MG in SODIUM CHLORIDE 0.9% 100 ML IV SCH (02:01)
[2017-09-09 04:34] LABS: Basophils # 0.1 10*3/uL (0.0-0.2); Basophils % 1.8 % (0.0-0.8); Eosinophils # 0.4 10*3/uL (0.0-0.87); Eosinophils % 7.7 % (0.00-10.9); Hematocrit 33.9 VOL% (35.7-47.0); Hemoglobin 11.5 GM/DL (12.0-16.0); Immature Granulocytes % 0.2 %; Immature Granulocytes Absolute 0.01 #; Lymphocytes # 1.7 10*3/uL (1.4-4.0); Lymphocytes % 33.8 % (21.3-54.2); Mean Corpuscular HGB Conc 33.9 GM/DL (32-36); Mean Corpuscular Hemoglobin 29 PG (27-34); Mean Corpuscular Volume 84.3 FL (87-102); Mean Platelet Volume 10.6 FL (9.6-12.0); Monocytes # 0.6 10*3/uL (0.11-0.8); Monocytes % 11.3 % (1.7-12.7); Neutrophils # 2.3 10*3/uL (1.4-7.4); Neutrophils % 45.2 % (38.7-73.9); Platelet Count 266 T/CUMM (130-400); Red Blood Count 4.02 MC/CUMM (3.8-5.5); White Blood Count 5.1 T/CUMM (4-12)
[2017-09-09 05:04] LABS: Calcium 9.3 MG/DL (8.5-10.1); Osmolality,Calculated 292.1 MOS/KG (273-304); Potassium 3.8 MMOL/L (3.5-5.1)
[2017-09-09] MEDS: LEVOTHYROXINE 75 MCG TABLET PO SCH (06:19)
[2017-09-09] MEDS: ENOXAPARIN 30 MG/0.3 ML SYRINGE SUBCUT SCH (09:26)
[2017-09-09] MEDS: DOCUSATE SODIUM 100 MG CAPSULE PO SCH (09:27)
[2017-09-09] MEDS: ISOSORBIDE MONONITRATE 30 MG TABLET PO SCH (09:27)
[2017-09-09] MEDS: amLODIPine 10 MG TABLET PO SCH (09:27)
[2017-09-09] MEDS: FENOFIBRATE 145 MG TABLET PO SCH (09:28)
[2017-09-09] MEDS: ASPIRIN EC 81 MG TABLET PO SCH (09:28)
[2017-09-09] MEDS: rOPINIRole 0.25 MG TABLET PO SCH (09:28)
[2017-09-09] MEDS: SOLIFENACIN 5 MG TABLET PO SCH (09:28)
[2017-09-09] MEDS: POTASSIUM CHLORIDE 20 MEQ TABLET PO SCH (09:28)
[2017-09-09] MEDS: MULTIVITAMIN (CENTRUM) TABLET PO SCH (09:28)
[2017-09-09] MEDS: CLOPIDOGREL 75 MG TABLET PO SCH (09:30)
[2017-09-09] MEDS: FUROSEMIDE 40 MG TABLET PO SCH (09:30)
[2017-09-09] MEDS: PARoxetine 20 MG TABLET PO SCH (09:30)
[2017-09-09] MEDS: LORATADINE 10 MG TABLET PO SCH (09:30)
[2017-09-09] MEDS: MAGNESIUM OXIDE 400 MG TABLET PO SCH (09:31)
[2017-09-09] MEDS: PANTOPRAZOLE 40 MG TABLET PO SCH (09:31)
[2017-09-09] MEDS: CARVEDILOL 25 MG TABLET PO SCH (09:31)
[2017-09-09] MEDS: GABAPENTIN 100 MG CAPSULE PO SCH (09:31)
[2017-09-09 11:14] VITALS: BP 148/63
== END 2017-09-09 13:25 | disposition swing bed (61) | DRG 291 ==
LOC: EDUNIT# → N.ED 14:27 → N.EDINP 18:10 → N.2E 20:05 → N.TELEN 09-01 00:05
PROVIDERS: ADMIT Internal Medicine; ATTEND Internal Medicine

== ENCOUNTER 2017-11-23 14:32 | Inpatient (IN) ==
[2017-11-23 15:07] LABS: Basophils # 0.1 10*3/uL (0.0-0.2); Basophils % 0.7 % (0.0-0.8); Eosinophils # 0.1 10*3/uL (0.0-0.87); Eosinophils % 0.9 % (0.00-10.9); Hematocrit 32.4 VOL% (35.7-47.0); Immature Granulocytes % 0.7 %; Immature Granulocytes Absolute 0.06 #; Lymphocytes # 1.4 10*3/uL (1.4-4.0); Lymphocytes % 15.6 % (21.3-54.2); Mean Corpuscular Hemoglobin 28 PG (27-34); Mean Corpuscular Volume 81.8 FL (87-102); Mean Platelet Volume 10.6 FL (9.6-12.0); Monocytes # 0.6 10*3/uL (0.11-0.8); Monocytes % 6.6 % (1.7-12.7); Neutrophils # 6.8 10*3/uL (1.4-7.4); Neutrophils % 75.5 % (38.7-73.9); Platelet Count 301 T/CUMM (130-400); Red Blood Count 3.96 MC/CUMM (3.8-5.5); Red Cell Distribution Width 15.9 % (9.3-17.3)
[2017-11-23 15:21] LABS: INR 1.1; PT Patient Result 11.9 SECS; Partial Thromboplastin Time 24.3 SECS (0-40)
[2017-11-23 15:22] LABS: Apearance,Urine Slightly Hazy (Clear); Bacteria,Urine Occasional /HPF (Few); Bilirubin,Urine Negative (Negative); Blood, Urine Negative (Negative); Glucose,Urine (UA) Negative (Negative); Ketones,Urine Negative (Negative); Nitrite,Urine Negative (Negative); Protein,Urine 100 MG/DL; RBC,Urine 2 /HPF (0-4); Renal Epithelial Cells,Urine Occasional /HPF (<1); Squamous Epithelial Cell,Urine Occasional /HPF (0-10); Urine Color Yellow (Yellow); Urine Specific Gravity 1.006 (1.001-1.035); Urine Urobilinogen < 2.0 EU/DL (0.2-1.0); WBC,Urine 118 /HPF (0-6)
[2017-11-23 15:32] LABS: Lactic Acid 1.8 MMOL/L (0.4-2.0)
[2017-11-23 15:55] LABS: Alanine Aminotransferase 14 U/L (13-56); Albumin 2.9 G/DL (3.4-5.0); Alkaline Phosphatase 30 U/L (45-117); Aspartate Amino Transferase 34 U/L (0-37); Blood Urea Nitrogen 56 MG/DL (7-18); Calcium 8.9 MG/DL (8.5-10.1); Glucose 144 MG/DL (74-106); Osmolality,Calculated 291.8 MOS/KG (273-304); Potassium 3.9 MMOL/L (3.5-5.1); Sodium 137 MMOL/L (136-145); Total Protein 7.1 G/DL (6.4-8.3); Troponin I Only 0.021 NG/ML (0.00-0.045)
[2017-11-24 07:23] LABS: Basophils % 0.5 % (0.0-0.8); Eosinophils # 0.1 10*3/uL (0.0-0.87); Eosinophils % 1.7 % (0.00-10.9); Hematocrit 30.4 VOL% (35.7-47.0); Hemoglobin 9.9 GM/DL (12.0-16.0); Immature Granulocytes % 0.5 %; Immature Granulocytes Absolute 0.04 #; Lymphocytes # 0.9 10*3/uL (1.4-4.0); Lymphocytes % 11.2 % (21.3-54.2); Mean Corpuscular HGB Conc 32.6 GM/DL (32-36); Mean Corpuscular Hemoglobin 28 PG (27-34); Mean Corpuscular Volume 84.7 FL (87-102); Mean Platelet Volume 10.6 FL (9.6-12.0); Monocytes # 0.4 10*3/uL (0.11-0.8); Neutrophils # 6.4 10*3/uL (1.4-7.4); Neutrophils % 81.1 % (38.7-73.9); Platelet Count 247 T/CUMM (130-400); Red Blood Count 3.59 MC/CUMM (3.8-5.5); Red Cell Distribution Width 15.7 % (9.3-17.3); White Blood Count 7.8 T/CUMM (4-12)
[2017-11-24 07:45] LABS: Calcium 8.2 MG/DL (8.5-10.1); Osmolality,Calculated 295.4 MOS/KG (273-304); Potassium 3.3 MMOL/L (3.5-5.1)
[2017-11-25 07:55] LABS: Basophils # 0.1 10*3/uL (0.0-0.2); Basophils % 0.7 % (0.0-0.8); Eosinophils # 0.3 10*3/uL (0.0-0.87); Eosinophils % 3.8 % (0.00-10.9); Hemoglobin 9.1 GM/DL (12.0-16.0); Immature Granulocytes % 1.2 %; Lymphocytes # 1.5 10*3/uL (1.4-4.0); Lymphocytes % 17.4 % (21.3-54.2); Mean Corpuscular HGB Conc 33.7 GM/DL (32-36); Mean Corpuscular Hemoglobin 28 PG (27-34); Mean Corpuscular Volume 82.8 FL (87-102); Mean Platelet Volume 10.9 FL (9.6-12.0); Monocytes # 0.7 10*3/uL (0.11-0.8); Monocytes % 8.7 % (1.7-12.7); Neutrophils # 5.7 10*3/uL (1.4-7.4); Neutrophils % 68.2 % (38.7-73.9); Platelet Count 255 T/CUMM (130-400); Red Blood Count 3.26 MC/CUMM (3.8-5.5); Red Cell Distribution Width 15.6 % (9.3-17.3); White Blood Count 8.4 T/CUMM (4-12)
[2017-11-25 08:26] LABS: Calcium 7.9 MG/DL (8.5-10.1); Osmolality,Calculated 288.7 MOS/KG (273-304); Potassium 3.4 MMOL/L (3.5-5.1)
[2017-11-26 06:58] LABS: Basophils # 0.1 10*3/uL (0.0-0.2); Basophils % 0.7 % (0.0-0.8); Eosinophils # 0.2 10*3/uL (0.0-0.87); Eosinophils % 2.2 % (0.00-10.9); Hematocrit 27.5 VOL% (35.7-47.0); Hemoglobin 9.2 GM/DL (12.0-16.0); Immature Granulocytes % 1.3 %; Immature Granulocytes Absolute 0.11 #; Lymphocytes # 1.3 10*3/uL (1.4-4.0); Lymphocytes % 14.9 % (21.3-54.2); Mean Corpuscular HGB Conc 33.5 GM/DL (32-36); Mean Corpuscular Hemoglobin 28 PG (27-34); Mean Corpuscular Volume 82.6 FL (87-102); Mean Platelet Volume 10.7 FL (9.6-12.0); Monocytes # 0.6 10*3/uL (0.11-0.8); Monocytes % 7.2 % (1.7-12.7); Neutrophils # 6.3 10*3/uL (1.4-7.4); Neutrophils % 73.7 % (38.7-73.9); Platelet Count 269 T/CUMM (130-400); Red Blood Count 3.33 MC/CUMM (3.8-5.5); Red Cell Distribution Width 15.5 % (9.3-17.3); White Blood Count 8.5 T/CUMM (4-12)
[2017-11-26 07:21] LABS: Calcium 8.3 MG/DL (8.5-10.1); Osmolality,Calculated 290.4 MOS/KG (273-304); Potassium 3.2 MMOL/L (3.5-5.1)
[2017-11-26 20:15] LABS: Troponin I Only 0.036 NG/ML (0.00-0.045)
[2017-11-26 23:27] LABS: Troponin I Only 0.034 NG/ML (0.00-0.045)
[2017-11-27 03:02] LABS: Basophils % 0.6 % (0.0-0.8); Eosinophils # 0.3 10*3/uL (0.0-0.87); Eosinophils % 4.1 % (0.00-10.9); Hematocrit 24.6 VOL% (35.7-47.0); Hemoglobin 8.4 GM/DL (12.0-16.0); Immature Granulocytes % 1.5 %; Lymphocytes # 1.5 10*3/uL (1.4-4.0); Lymphocytes % 22.7 % (21.3-54.2); Mean Corpuscular HGB Conc 34.1 GM/DL (32-36); Mean Corpuscular Hemoglobin 28 PG (27-34); Mean Platelet Volume 10.6 FL (9.6-12.0); Monocytes # 0.6 10*3/uL (0.11-0.8); Monocytes % 9.7 % (1.7-12.7); Neutrophils % 61.4 % (38.7-73.9); Platelet Count 255 T/CUMM (130-400); Red Cell Distribution Width 15.4 % (9.3-17.3); White Blood Count 6.6 T/CUMM (4-12)
[2017-11-27 03:19] LABS: Calcium 8.1 MG/DL (8.5-10.1); Osmolality,Calculated 292.1 MOS/KG (273-304); Potassium 3.3 MMOL/L (3.5-5.1)
[2017-11-27 03:23] LABS: Troponin I Only 0.029 NG/ML (0.00-0.045)
[2017-11-28 07:37] VITALS: BP 157/73
[2017-11-28 08:48] LABS: Basophils # 0.1 10*3/uL (0.0-0.2); Basophils % 0.8 % (0.0-0.8); Eosinophils # 0.6 10*3/uL (0.0-0.87); Eosinophils % 8.6 % (0.00-10.9); Hematocrit 33.6 VOL% (35.7-47.0); Immature Granulocytes % 1.9 %; Immature Granulocytes Absolute 0.14 #; Lymphocytes # 2.2 10*3/uL (1.4-4.0); Lymphocytes % 30.2 % (21.3-54.2); Mean Corpuscular HGB Conc 33.6 GM/DL (32-36); Mean Corpuscular Hemoglobin 28 PG (27-34); Mean Corpuscular Volume 83.2 FL (87-102); Mean Platelet Volume 9.8 FL (9.6-12.0); Monocytes # 0.7 10*3/uL (0.11-0.8); Monocytes % 9.8 % (1.7-12.7); Neutrophils # 3.6 10*3/uL (1.4-7.4); Neutrophils % 48.7 % (38.7-73.9); Platelet Count 264 T/CUMM (130-400); Red Blood Count 4.04 MC/CUMM (3.8-5.5); Red Cell Distribution Width 15.9 % (9.3-17.3); White Blood Count 7.4 T/CUMM (4-12)
[2017-11-28 08:50] LABS: Hemoglobin 11.3 GM/DL (12.0-16.0)
[2017-11-28 09:14] LABS: Calcium 8.4 MG/DL (8.5-10.1); Osmolality,Calculated 279.1 MOS/KG (273-304); Potassium 3.2 MMOL/L (3.5-5.1)
== END 2017-11-28 13:19 | DRG 689 ==
LOC: EDUNIT# → EDBD → N.ED 14:32 → N.EDINP 16:32 → N.5E 18:02
PROVIDERS: ADMIT Internal Medicine; ATTEND Internal Medicine

== ENCOUNTER 2017-12-29 13:29 | Inpatient (IN) ==
[2017-12-29 14:15] LABS: Apearance,Urine CLOUDY (Clear); Bilirubin,Urine Negative (Negative); Blood, Urine Negative (Negative); Glucose,Urine (UA) Negative (Negative); Ketones,Urine Negative (Negative); Nitrite,Urine Negative (Negative); Protein,Urine 100 MG/DL; RBC,Urine 3 /HPF (0-4); Urine Color Yellow (Yellow); Urine Specific Gravity 1.009 (1.001-1.035); Urine Urobilinogen < 2.0 EU/DL (0.2-1.0); WBC,Urine 374 /HPF (0-6)
[2017-12-29] MEDS ORDERED: cefTRIAXone 1,000 MG in SODIUM CHLORIDE 0.9% 100 ML IV STA (14:24)
[2017-12-29] MEDS ORDERED: cefTRIAXone 1,000 MG in SYRINGE 1 EACH IV STA (14:35)
[2017-12-29] MEDS ORDERED: SODIUM CHLORIDE 0.9% 500 ML IV STA (14:51)
[2017-12-29 14:56] LABS: Basophils # 0.1 10*3/uL (0.0-0.2); Basophils % 0.8 % (0.0-0.8); Eosinophils # 0.2 10*3/uL (0.0-0.87); Eosinophils % 3.2 % (0.00-10.9); Hematocrit 35.2 VOL% (35.7-47.0); Hemoglobin 11.6 GM/DL (12.0-16.0); Immature Granulocytes % 0.8 %; Immature Granulocytes Absolute 0.05 #; Lymphocytes # 1.5 10*3/uL (1.4-4.0); Lymphocytes % 24.1 % (21.3-54.2); Mean Corpuscular Hemoglobin 28 PG (27-34); Mean Corpuscular Volume 83.4 FL (87-102); Mean Platelet Volume 10.5 FL (9.6-12.0); Monocytes # 0.5 10*3/uL (0.11-0.8); Monocytes % 8.7 % (1.7-12.7); Neutrophils # 3.8 10*3/uL (1.4-7.4); Neutrophils % 62.4 % (38.7-73.9); Platelet Count 279 T/CUMM (130-400); Red Blood Count 4.22 MC/CUMM (3.8-5.5); Red Cell Distribution Width 15.5 % (9.3-17.3)
[2017-12-29 15:07] LABS: Albumin 2.6 G/DL (3.4-5.0); Bilirubin,Total 0.4 MG/DL (0.2-1.0); Calcium 8.9 MG/DL (8.5-10.1); Osmolality,Calculated 281.4 MOS/KG (273-304); Potassium 3.6 MMOL/L (3.5-5.1); Total Protein 7.2 G/DL (6.4-8.3)
[2017-12-29] MEDS ORDERED: ACETAMINOPHEN 500 MG TABLET PO PRN (17:09)
[2017-12-29] MEDS ORDERED: ACETAMINOPHEN 325 MG TABLET PO PRN (17:09)
[2017-12-29] MEDS ORDERED: LACTULOSE 20 GM/30 ML UDCUP PO PRN (17:09)
[2017-12-29] MEDS ORDERED: ONDANSETRON 4 MG/2 ML VIAL IV PRN (17:09)
[2017-12-29] MEDS ORDERED: SODIUM CHLORIDE 0.9% 1,000 ML IV SCH (17:09)
[2017-12-29] MEDS ORDERED: ONDANSETRON 4 MG TABLET PO PRN (17:09)
[2017-12-29] MEDS: FUROSEMIDE 40 MG TABLET PO SCH (17:24)
[2017-12-29] MEDS: DOCUSATE SODIUM 100 MG CAPSULE PO SCH (20:31)
[2017-12-29] MEDS: rOPINIRole 0.25 MG TABLET PO SCH (20:31)
[2017-12-29] MEDS: PARoxetine 10 MG TABLET PO SCH (20:31)
[2017-12-29] MEDS: PANTOPRAZOLE 40 MG TABLET PO SCH (20:31)
[2017-12-29] MEDS: CARVEDILOL 25 MG TABLET PO SCH (20:31)
[2017-12-29] MEDS: DONEPEZIL 10 MG TABLET PO SCH (20:31)
[2017-12-29] MEDS: GABAPENTIN 100 MG CAPSULE PO SCH (20:32)
[2017-12-29] MEDS: ATORVASTATIN 20 MG TABLET PO SCH (20:32)
[2017-12-29] MEDS ORDERED: DOCUSATE SODIUM 100 MG CAPSULE PO SCH (21:00)
[2017-12-30 05:38] LABS: Basophils # 0.1 10*3/uL (0.0-0.2); Basophils % 1.1 % (0.0-0.8); Eosinophils # 0.4 10*3/uL (0.0-0.87); Eosinophils % 5.6 % (0.00-10.9); Hematocrit 33.2 VOL% (35.7-47.0); Hemoglobin 10.8 GM/DL (12.0-16.0); Immature Granulocytes % 1.1 %; Immature Granulocytes Absolute 0.07 #; Lymphocytes # 1.6 10*3/uL (1.4-4.0); Lymphocytes % 24.1 % (21.3-54.2); Mean Corpuscular HGB Conc 32.5 GM/DL (32-36); Mean Corpuscular Hemoglobin 27 PG (27-34); Mean Corpuscular Volume 84.1 FL (87-102); Monocytes # 0.6 10*3/uL (0.11-0.8); Monocytes % 8.5 % (1.7-12.7); Neutrophils # 3.9 10*3/uL (1.4-7.4); Neutrophils % 59.6 % (38.7-73.9); Platelet Count 255 T/CUMM (130-400); Red Blood Count 3.95 MC/CUMM (3.8-5.5); Red Cell Distribution Width 15.4 % (9.3-17.3); White Blood Count 6.5 T/CUMM (4-12)
[2017-12-30 05:58] LABS: Albumin 2.5 G/DL (3.4-5.0); Bilirubin,Total 0.5 MG/DL (0.2-1.0); Calcium 8.3 MG/DL (8.5-10.1); Osmolality,Calculated 286.7 MOS/KG (273-304); Total Protein 6.7 G/DL (6.4-8.3)
[2017-12-30] MEDS: LEVOTHYROXINE 75 MCG TABLET PO SCH (07:05)
[2017-12-30] MEDS: PANTOPRAZOLE 40 MG TABLET PO SCH ×2 (08:39→20:31)
[2017-12-30] MEDS: GABAPENTIN 100 MG CAPSULE PO SCH ×2 (08:39→20:32)
[2017-12-30] MEDS: POLYETHYLENE GLYCOL POWDER 17 GM PACK PO SCH (08:39)
[2017-12-30] MEDS: rOPINIRole 0.25 MG TABLET PO SCH ×3 (08:39→20:32)
[2017-12-30] MEDS: CARVEDILOL 25 MG TABLET PO SCH ×2 (08:39→18:27)
[2017-12-30] MEDS: amLODIPine 10 MG TABLET PO SCH (08:39)
[2017-12-30] MEDS: LORATADINE 10 MG TABLET PO SCH (08:40)
[2017-12-30] MEDS: MAGNESIUM OXIDE 400 MG TABLET PO SCH (08:40)
[2017-12-30] MEDS: FUROSEMIDE 40 MG TABLET PO SCH ×2 (08:40→15:16)
[2017-12-30] MEDS: DOCUSATE SODIUM 100 MG CAPSULE PO SCH ×2 (08:41→20:32)
[2017-12-30] MEDS: FENOFIBRATE 145 MG TABLET PO SCH (08:41)
[2017-12-30] MEDS: CLOPIDOGREL 75 MG TABLET PO SCH (08:41)
[2017-12-30] MEDS: ASPIRIN EC 81 MG TABLET PO SCH (08:41)
[2017-12-30] MEDS ORDERED: ISOSORBIDE MONONITRATE 60 MG TABLET PO SCH (09:00)
[2017-12-30] MEDS ORDERED: PANTOPRAZOLE 40 MG TABLET PO SCH (09:00)
[2017-12-30] MEDS: POTASSIUM CHLORIDE 20 MEQ TABLET PO PRN (10:00)
[2017-12-30] MEDS: SODIUM CHLORIDE 0.45% 1,000 ML IV SCH (10:23)
[2017-12-30] MEDS: cefTRIAXone 1,000 MG in SYRINGE 1 EACH IV SCH (15:15)
[2017-12-30] MEDS: PARoxetine 10 MG TABLET PO SCH (20:32)
[2017-12-30] MEDS: DONEPEZIL 10 MG TABLET PO SCH (20:32)
[2017-12-30] MEDS: ATORVASTATIN 20 MG TABLET PO SCH (20:32)
[2017-12-31] MEDS: SODIUM CHLORIDE 0.45% 1,000 ML IV SCH ×2 (05:44→23:29)
[2017-12-31] MEDS: LEVOTHYROXINE 75 MCG TABLET PO SCH (06:16)
[2017-12-31 06:57] LABS: Basophils # 0.1 10*3/uL (0.0-0.2); Basophils % 0.8 % (0.0-0.8); Eosinophils # 0.5 10*3/uL (0.0-0.87); Eosinophils % 7.1 % (0.00-10.9); Hematocrit 31.5 VOL% (35.7-47.0); Hemoglobin 10.3 GM/DL (12.0-16.0); Immature Granulocytes % 1.1 %; Immature Granulocytes Absolute 0.07 #; Lymphocytes # 1.6 10*3/uL (1.4-4.0); Lymphocytes % 24.5 % (21.3-54.2); Mean Corpuscular HGB Conc 32.7 GM/DL (32-36); Mean Corpuscular Hemoglobin 27 PG (27-34); Mean Platelet Volume 10.2 FL (9.6-12.0); Monocytes # 0.5 10*3/uL (0.11-0.8); Monocytes % 8.1 % (1.7-12.7); Neutrophils # 3.8 10*3/uL (1.4-7.4); Neutrophils % 58.4 % (38.7-73.9); Platelet Count 263 T/CUMM (130-400); Red Blood Count 3.84 MC/CUMM (3.8-5.5); Red Cell Distribution Width 15.2 % (9.3-17.3); White Blood Count 6.4 T/CUMM (4-12)
[2017-12-31 07:31] LABS: Calcium 7.9 MG/DL (8.5-10.1); Osmolality,Calculated 281.1 MOS/KG (273-304); Potassium 3.1 MMOL/L (3.5-5.1)
[2017-12-31] MEDS: GABAPENTIN 100 MG CAPSULE PO SCH ×2 (09:12→21:25)
[2017-12-31] MEDS: ISOSORBIDE MONONITRATE 60 MG TABLET PO SCH (09:12)
[2017-12-31] MEDS: CLOPIDOGREL 75 MG TABLET PO SCH (09:13)
[2017-12-31] MEDS: amLODIPine 10 MG TABLET PO SCH (09:13)
[2017-12-31] MEDS: PANTOPRAZOLE 40 MG TABLET PO SCH ×2 (09:13→21:27)
[2017-12-31] MEDS: rOPINIRole 0.25 MG TABLET PO SCH ×3 (09:13→21:25)
[2017-12-31] MEDS: FUROSEMIDE 40 MG TABLET PO SCH ×2 (09:14→16:13)
[2017-12-31] MEDS: POTASSIUM CHLORIDE 20 MEQ TABLET PO SCH ×2 (09:14→21:25)
[2017-12-31] MEDS: DOCUSATE SODIUM 100 MG CAPSULE PO SCH ×2 (09:14→21:25)
[2017-12-31] MEDS: CARVEDILOL 25 MG TABLET PO SCH ×2 (09:14→16:13)
[2017-12-31] MEDS: LORATADINE 10 MG TABLET PO SCH (09:14)
[2017-12-31] MEDS: MAGNESIUM OXIDE 400 MG TABLET PO SCH (09:15)
[2017-12-31] MEDS: POLYETHYLENE GLYCOL POWDER 17 GM PACK PO SCH (09:21)
[2017-12-31] MEDS: FENOFIBRATE 145 MG TABLET PO SCH (09:21)
[2017-12-31] MEDS: ASPIRIN EC 81 MG TABLET PO SCH (09:22)
[2017-12-31] MEDS: POTASSIUM CHLORIDE 20 MEQ TABLET PO PRN ×4 (15:02→23:36)
[2017-12-31] MEDS: cefTRIAXone 1,000 MG in SYRINGE 1 EACH IV SCH (15:04)
[2017-12-31] MEDS: AMOXICILLIN/CLAV 500 MG TABLET PO SCH (21:25)
[2017-12-31] MEDS: ATORVASTATIN 20 MG TABLET PO SCH (21:25)
[2017-12-31] MEDS: PARoxetine 10 MG TABLET PO SCH (21:25)
[2017-12-31] MEDS: DONEPEZIL 10 MG TABLET PO SCH (21:27)
[2018-01-01] MEDS: LEVOTHYROXINE 75 MCG TABLET PO SCH (06:14)
[2018-01-01 08:27] LABS: Osmolality,Calculated 281.8 MOS/KG (273-304); Potassium 3.7 MMOL/L (3.5-5.1)
[2018-01-01] MEDS: ISOSORBIDE MONONITRATE 60 MG TABLET PO SCH (09:10)
[2018-01-01] MEDS: MAGNESIUM OXIDE 400 MG TABLET PO SCH (09:10)
[2018-01-01] MEDS: rOPINIRole 0.25 MG TABLET PO SCH (09:10)
[2018-01-01] MEDS: FUROSEMIDE 40 MG TABLET PO SCH (09:11)
[2018-01-01] MEDS: LORATADINE 10 MG TABLET PO SCH (09:11)
[2018-01-01] MEDS: PANTOPRAZOLE 40 MG TABLET PO SCH (09:11)
[2018-01-01] MEDS: CLOPIDOGREL 75 MG TABLET PO SCH (09:11)
[2018-01-01] MEDS: FENOFIBRATE 145 MG TABLET PO SCH (09:11)
[2018-01-01] MEDS: amLODIPine 10 MG TABLET PO SCH (09:11)
[2018-01-01] MEDS: CARVEDILOL 25 MG TABLET PO SCH (09:12)
[2018-01-01] MEDS: DOCUSATE SODIUM 100 MG CAPSULE PO SCH (09:12)
[2018-01-01] MEDS: POTASSIUM CHLORIDE 20 MEQ TABLET PO SCH (09:12)
[2018-01-01] MEDS: ASPIRIN EC 81 MG TABLET PO SCH (09:12)
[2018-01-01] MEDS: GABAPENTIN 100 MG CAPSULE PO SCH (09:12)
[2018-01-01] MEDS: POLYETHYLENE GLYCOL POWDER 17 GM PACK PO SCH (09:13)
[2018-01-01] MEDS: AMOXICILLIN/CLAV 500 MG TABLET PO SCH (10:32)
[2018-01-01 12:27] VITALS: BP 150/52
== END 2018-01-01 12:25 | DRG 689 ==
LOC: EDUNIT# → EDBD → N.ED 13:29 → N.EDINP 15:38 → N.5E 19:50
PROVIDERS: ADMIT Internal Medicine; ATTEND Internal Medicine

== ENCOUNTER 2018-01-23 05:44 | Inpatient (IN) ==
[2018-01-23] MEDS ORDERED: CEFEPIME 1,000 MG in SODIUM CHLORIDE 0.9% 100 ML IV STA (06:19)
[2018-01-23 06:23] LABS: Bacteria,Urine Many /HPF (Few); RBC,Urine 74 /HPF (0-4); WBC,Urine 12654 /HPF (0-6)
[2018-01-23 06:24] LABS: Apearance,Urine Turbid (Clear); Urine Color Yellow (Yellow)
[2018-01-23 06:25] LABS: Bilirubin,Urine Negative (Negative); Blood, Urine Negative (Negative); Glucose,Urine (UA) Negative (Negative); Ketones,Urine Negative (Negative); Nitrite,Urine Negative (Negative); Protein,Urine 100 MG/DL; Urine Specific Gravity 1.005 (1.001-1.035); Urine Urobilinogen < 2.0 EU/DL (0.2-1.0)
[2018-01-23 06:32] LABS: Basophils # 0.1 10*3/uL (0.0-0.2); Basophils % 0.9 % (0.0-0.8); Eosinophils # 0.4 10*3/uL (0.0-0.87); Eosinophils % 4.6 % (0.00-10.9); Hematocrit 29.3 VOL% (35.7-47.0); Hemoglobin 9.6 GM/DL (12.0-16.0); Immature Granulocytes % 1.6 %; Immature Granulocytes Absolute 0.12 #; Lymphocytes # 1.5 10*3/uL (1.4-4.0); Lymphocytes % 19.8 % (21.3-54.2); Mean Corpuscular HGB Conc 32.8 GM/DL (32-36); Mean Corpuscular Hemoglobin 27 PG (27-34); Mean Corpuscular Volume 82.8 FL (87-102); Mean Platelet Volume 10.1 FL (9.6-12.0); Monocytes # 0.6 10*3/uL (0.11-0.8); Monocytes % 8.5 % (1.7-12.7); Neutrophils # 4.9 10*3/uL (1.4-7.4); Neutrophils % 64.6 % (38.7-73.9); Platelet Count 310 T/CUMM (130-400); Red Blood Count 3.54 MC/CUMM (3.8-5.5); Red Cell Distribution Width 14.9 % (9.3-17.3); White Blood Count 7.6 T/CUMM (4-12)
[2018-01-23 06:54] LABS: Lactic Acid 0.5 MMOL/L (0.4-2.0)
[2018-01-23 06:56] LABS: Albumin 2.8 G/DL (3.4-5.0); Bilirubin,Total 0.6 MG/DL (0.2-1.0); Calcium 9.1 MG/DL (8.5-10.1); Osmolality,Calculated 275.7 MOS/KG (273-304); Potassium 3.8 MMOL/L (3.5-5.1); Total Protein 7.4 G/DL (6.4-8.3)
[2018-01-23] MEDS ORDERED: ACETAMINOPHEN 325 MG TABLET PO PRN (08:13)
[2018-01-23] MEDS: ONDANSETRON 4 MG/2 ML VIAL IV PRN (09:04)
[2018-01-23] MEDS: ISOSORBIDE MONONITRATE 60 MG TABLET PO SCH (11:17)
[2018-01-23] MEDS: DOCUSATE SODIUM 100 MG CAPSULE PO SCH ×2 (11:18→22:03)
[2018-01-23] MEDS: CLOPIDOGREL 75 MG TABLET PO SCH (11:18)
[2018-01-23] MEDS: CARVEDILOL 25 MG TABLET PO SCH ×2 (11:19→22:04)
[2018-01-23] MEDS: FENOFIBRATE 145 MG TABLET PO SCH (11:19)
[2018-01-23] MEDS: ASPIRIN EC 81 MG TABLET PO SCH (11:19)
[2018-01-23] MEDS: LORATADINE 10 MG TABLET PO SCH (11:19)
[2018-01-23] MEDS: amLODIPine 10 MG TABLET PO SCH (11:20)
[2018-01-23] MEDS: POTASSIUM CHLORIDE 20 MEQ TABLET PO SCH ×2 (11:20→22:04)
[2018-01-23] MEDS: GABAPENTIN 100 MG CAPSULE PO SCH ×2 (11:20→22:03)
[2018-01-23] MEDS: SODIUM CHLORIDE 0.45% 1,000 ML IV SCH (11:21)
[2018-01-23] MEDS: POLYETHYLENE GLYCOL POWDER 17 GM PACK PO SCH (11:21)
[2018-01-23] MEDS: PANTOPRAZOLE 40 MG TABLET PO SCH (11:21)
[2018-01-23] MEDS: ENOXAPARIN 30 MG/0.3 ML SYRINGE SUBCUT SCH (11:21)
[2018-01-23] MEDS: MAGNESIUM OXIDE 400 MG TABLET PO SCH (11:21)
[2018-01-23] MEDS: rOPINIRole 0.25 MG TABLET PO SCH ×3 (11:22→22:03)
[2018-01-23] MEDS: MEROPENEM 500 MG in SODIUM CHLORIDE 0.9% 100 ML IV SCH ×2 (11:22→22:06)
[2018-01-23] MEDS ORDERED: CEFEPIME 1,000 MG in SODIUM CHLORIDE 0.9% 100 ML IV SCH (12:00)
[2018-01-23 12:31] LABS: Troponin I 0.016 NG/ML (0.00-0.045)
[2018-01-23 15:07] LABS: Troponin I < 0.015 NG/ML (0.00-0.045)
[2018-01-23] MEDS: FUROSEMIDE 40 MG TABLET PO SCH (15:40)
[2018-01-23 18:23] LABS: Troponin I < 0.015 NG/ML (0.00-0.045)
[2018-01-23] MEDS: PARoxetine 20 MG TABLET PO SCH (22:02)
[2018-01-23] MEDS: OXYBUTYNIN XL 10 MG TABLET PO SCH (22:03)
[2018-01-23] MEDS: ATORVASTATIN 20 MG TABLET PO SCH (22:03)
[2018-01-23] MEDS: DONEPEZIL 10 MG TABLET PO SCH (22:04)
[2018-01-24 04:55] LABS: Basophils # 0.1 10*3/uL (0.0-0.2); Basophils % 0.9 % (0.0-0.8); Eosinophils # 0.4 10*3/uL (0.0-0.87); Eosinophils % 8.2 % (0.00-10.9); Hematocrit 25.2 VOL% (35.7-47.0); Hemoglobin 8.3 GM/DL (12.0-16.0); Immature Granulocytes % 1.1 %; Immature Granulocytes Absolute 0.06 #; Lymphocytes # 1.3 10*3/uL (1.4-4.0); Lymphocytes % 23.2 % (21.3-54.2); Mean Corpuscular HGB Conc 32.9 GM/DL (32-36); Mean Corpuscular Hemoglobin 27 PG (27-34); Mean Corpuscular Volume 82.4 FL (87-102); Monocytes # 0.6 10*3/uL (0.11-0.8); Monocytes % 10.4 % (1.7-12.7); Neutrophils % 56.2 % (38.7-73.9); Platelet Count 273 T/CUMM (130-400); Red Blood Count 3.06 MC/CUMM (3.8-5.5); Red Cell Distribution Width 14.6 % (9.3-17.3); White Blood Count 5.4 T/CUMM (4-12)
[2018-01-24 05:40] LABS: Calcium 7.9 MG/DL (8.5-10.1); Osmolality,Calculated 280.4 MOS/KG (273-304); Potassium 3.6 MMOL/L (3.5-5.1)
[2018-01-24] MEDS: LEVOTHYROXINE 75 MCG TABLET PO SCH (06:22)
[2018-01-24] MEDS: SODIUM CHLORIDE 0.45% 1,000 ML IV SCH (09:39)
[2018-01-24] MEDS: MEROPENEM 500 MG in SODIUM CHLORIDE 0.9% 100 ML IV SCH ×2 (09:39→21:37)
[2018-01-24] MEDS: MAGNESIUM OXIDE 400 MG TABLET PO SCH (09:40)
[2018-01-24] MEDS: amLODIPine 10 MG TABLET PO SCH (09:40)
[2018-01-24] MEDS: FENOFIBRATE 145 MG TABLET PO SCH (09:40)
[2018-01-24] MEDS: GABAPENTIN 100 MG CAPSULE PO SCH ×2 (09:40→21:36)
[2018-01-24] MEDS: PANTOPRAZOLE 40 MG TABLET PO SCH (09:40)
[2018-01-24] MEDS: rOPINIRole 0.25 MG TABLET PO SCH ×3 (09:40→21:35)
[2018-01-24] MEDS: FUROSEMIDE 40 MG TABLET PO SCH ×2 (09:40→15:45)
[2018-01-24] MEDS: ISOSORBIDE MONONITRATE 60 MG TABLET PO SCH (09:40)
[2018-01-24] MEDS: DOCUSATE SODIUM 100 MG CAPSULE PO SCH ×2 (09:41→21:35)
[2018-01-24] MEDS: POLYETHYLENE GLYCOL POWDER 17 GM PACK PO SCH (09:41)
[2018-01-24] MEDS: CARVEDILOL 25 MG TABLET PO SCH ×2 (09:41→21:35)
[2018-01-24] MEDS: ASPIRIN EC 81 MG TABLET PO SCH (09:41)
[2018-01-24] MEDS: LORATADINE 10 MG TABLET PO SCH (09:41)
[2018-01-24] MEDS: ENOXAPARIN 30 MG/0.3 ML SYRINGE SUBCUT SCH (09:41)
[2018-01-24] MEDS: POTASSIUM CHLORIDE 20 MEQ TABLET PO SCH ×2 (09:41→21:35)
[2018-01-24] MEDS: CLOPIDOGREL 75 MG TABLET PO SCH (09:41)
[2018-01-24] MEDS: OXYBUTYNIN XL 10 MG TABLET PO SCH (21:35)
[2018-01-24] MEDS: DONEPEZIL 10 MG TABLET PO SCH (21:35)
[2018-01-24] MEDS: ATORVASTATIN 20 MG TABLET PO SCH (21:35)
[2018-01-24] MEDS: PARoxetine 20 MG TABLET PO SCH (21:45)
[2018-01-25 05:17] LABS: Osmolality,Calculated 283.1 MOS/KG (273-304); Potassium 3.6 MMOL/L (3.5-5.1)
[2018-01-25 05:30] LABS: Basophils # 0.1 10*3/uL (0.0-0.2); Eosinophils # 0.5 10*3/uL (0.0-0.87); Hematocrit 24.6 VOL% (35.7-47.0); Hemoglobin 8.2 GM/DL (12.0-16.0); Immature Granulocytes % 1.5 %; Immature Granulocytes Absolute 0.09 #; Lymphocytes # 1.5 10*3/uL (1.4-4.0); Lymphocytes % 24.7 % (21.3-54.2); Mean Corpuscular HGB Conc 33.3 GM/DL (32-36); Mean Corpuscular Hemoglobin 27 PG (27-34); Mean Corpuscular Volume 80.7 FL (87-102); Mean Platelet Volume 10.5 FL (9.6-12.0); Monocytes # 0.6 10*3/uL (0.11-0.8); Monocytes % 9.8 % (1.7-12.7); Neutrophils # 3.3 10*3/uL (1.4-7.4); Platelet Count 292 T/CUMM (130-400); Red Blood Count 3.05 MC/CUMM (3.8-5.5); Red Cell Distribution Width 14.7 % (9.3-17.3)
[2018-01-25] MEDS: LEVOTHYROXINE 75 MCG TABLET PO SCH (06:26)
[2018-01-25] MEDS: SODIUM CHLORIDE 0.45% 1,000 ML IV SCH (09:08)
[2018-01-25] MEDS: GABAPENTIN 100 MG CAPSULE PO SCH ×2 (09:09→22:49)
[2018-01-25] MEDS: ISOSORBIDE MONONITRATE 60 MG TABLET PO SCH (09:09)
[2018-01-25] MEDS: MAGNESIUM OXIDE 400 MG TABLET PO SCH (09:09)
[2018-01-25] MEDS: POTASSIUM CHLORIDE 20 MEQ TABLET PO SCH ×2 (09:10→22:49)
[2018-01-25] MEDS: ASPIRIN EC 81 MG TABLET PO SCH (09:10)
[2018-01-25] MEDS: amLODIPine 10 MG TABLET PO SCH (09:10)
[2018-01-25] MEDS: FUROSEMIDE 40 MG TABLET PO SCH ×2 (09:10→15:57)
[2018-01-25] MEDS: CLOPIDOGREL 75 MG TABLET PO SCH (09:10)
[2018-01-25] MEDS: rOPINIRole 0.25 MG TABLET PO SCH ×3 (09:11→22:49)
[2018-01-25] MEDS: PANTOPRAZOLE 40 MG TABLET PO SCH (09:11)
[2018-01-25] MEDS: FENOFIBRATE 145 MG TABLET PO SCH (09:11)
[2018-01-25] MEDS: POLYETHYLENE GLYCOL POWDER 17 GM PACK PO SCH (09:11)
[2018-01-25] MEDS: DOCUSATE SODIUM 100 MG CAPSULE PO SCH ×2 (09:11→22:50)
[2018-01-25] MEDS: LORATADINE 10 MG TABLET PO SCH (09:11)
[2018-01-25] MEDS: ENOXAPARIN 30 MG/0.3 ML SYRINGE SUBCUT SCH (09:11)
[2018-01-25] MEDS: CARVEDILOL 25 MG TABLET PO SCH ×2 (09:50→22:49)
[2018-01-25] MEDS: MEROPENEM 500 MG in SODIUM CHLORIDE 0.9% 100 ML IV SCH ×2 (10:00→22:53)
[2018-01-25] MEDS: OXYBUTYNIN XL 10 MG TABLET PO SCH (22:49)
[2018-01-25] MEDS: ATORVASTATIN 20 MG TABLET PO SCH (22:49)
[2018-01-25] MEDS: DONEPEZIL 10 MG TABLET PO SCH (22:49)
[2018-01-25] MEDS: PARoxetine 20 MG TABLET PO SCH (22:50)
[2018-01-25] MEDS: SERTRALINE 50 MG TABLET PO SCH (22:51)
[2018-01-26] MEDS: LEVOTHYROXINE 75 MCG TABLET PO SCH (06:34)
[2018-01-26] MEDS: ASPIRIN EC 81 MG TABLET PO SCH (08:31)
[2018-01-26] MEDS: GABAPENTIN 100 MG CAPSULE PO SCH ×2 (08:31→21:55)
[2018-01-26] MEDS: rOPINIRole 0.25 MG TABLET PO SCH ×3 (08:31→22:17)
[2018-01-26] MEDS: CLOPIDOGREL 75 MG TABLET PO SCH (08:32)
[2018-01-26] MEDS: PANTOPRAZOLE 40 MG TABLET PO SCH (08:32)
[2018-01-26] MEDS: SERTRALINE 50 MG TABLET PO SCH (08:32)
[2018-01-26] MEDS: FUROSEMIDE 40 MG TABLET PO SCH ×2 (08:32→15:40)
[2018-01-26] MEDS: ISOSORBIDE MONONITRATE 60 MG TABLET PO SCH (08:33)
[2018-01-26] MEDS: CARVEDILOL 25 MG TABLET PO SCH ×2 (08:33→21:56)
[2018-01-26] MEDS: amLODIPine 10 MG TABLET PO SCH (08:34)
[2018-01-26] MEDS: LORATADINE 10 MG TABLET PO SCH (08:34)
[2018-01-26] MEDS: FENOFIBRATE 145 MG TABLET PO SCH (08:34)
[2018-01-26] MEDS: DOCUSATE SODIUM 100 MG CAPSULE PO SCH ×2 (08:35→21:56)
[2018-01-26] MEDS: POTASSIUM CHLORIDE 20 MEQ TABLET PO SCH ×2 (08:35→22:17)
[2018-01-26] MEDS: MAGNESIUM OXIDE 400 MG TABLET PO SCH (08:35)
[2018-01-26] MEDS: ENOXAPARIN 30 MG/0.3 ML SYRINGE SUBCUT SCH (08:36)
[2018-01-26] MEDS: POLYETHYLENE GLYCOL POWDER 17 GM PACK PO SCH (08:36)
[2018-01-26] MEDS: MEROPENEM 500 MG in SODIUM CHLORIDE 0.9% 100 ML IV SCH ×2 (09:02→23:22)
[2018-01-26] MEDS ORDERED: ALPRAZolam 0.25 MG TABLET PO PRN (09:08)
[2018-01-26] MEDS: SODIUM CHLORIDE 0.45% 1,000 ML IV SCH (10:02)
[2018-01-26 10:15] LABS: Calcium 7.8 MG/DL (8.5-10.1); Potassium 3.6 MMOL/L (3.5-5.1)
[2018-01-26 10:36] LABS: Basophils # 0.1 10*3/uL (0.0-0.2); Eosinophils # 0.5 10*3/uL (0.0-0.87); Eosinophils % 8.4 % (0.00-10.9); Hematocrit 24.7 VOL% (35.7-47.0); Hemoglobin 8.3 GM/DL (12.0-16.0); Immature Granulocytes % 1.3 %; Immature Granulocytes Absolute 0.08 #; Lymphocytes # 1.9 10*3/uL (1.4-4.0); Lymphocytes % 31.3 % (21.3-54.2); Mean Corpuscular HGB Conc 33.6 GM/DL (32-36); Mean Corpuscular Hemoglobin 27 PG (27-34); Mean Corpuscular Volume 80.7 FL (87-102); Mean Platelet Volume 10.4 FL (9.6-12.0); Monocytes # 0.5 10*3/uL (0.11-0.8); Monocytes % 8.6 % (1.7-12.7); Neutrophils % 49.4 % (38.7-73.9); Platelet Count 291 T/CUMM (130-400); Red Blood Count 3.06 MC/CUMM (3.8-5.5); Red Cell Distribution Width 14.8 % (9.3-17.3); White Blood Count 6.1 T/CUMM (4-12)
[2018-01-26] MEDS: ATORVASTATIN 20 MG TABLET PO SCH (21:56)
[2018-01-26] MEDS: PARoxetine 20 MG TABLET PO SCH (21:56)
[2018-01-26] MEDS: ONDANSETRON 4 MG/2 ML VIAL IV PRN (21:57)
[2018-01-26] MEDS: DONEPEZIL 10 MG TABLET PO SCH (22:16)
[2018-01-26] MEDS: OXYBUTYNIN XL 10 MG TABLET PO SCH (22:17)
[2018-01-27 05:38] LABS: Calcium 8.3 MG/DL (8.5-10.1); Potassium 3.8 MMOL/L (3.5-5.1)
[2018-01-27 09:54] LABS: Basophils # 0.1 10*3/uL (0.0-0.2); Basophils % 1.3 % (0.0-0.8); Eosinophils # 0.6 10*3/uL (0.0-0.87); Eosinophils % 8.7 % (0.00-10.9); Hematocrit 25.9 VOL% (35.7-47.0); Hemoglobin 8.7 GM/DL (12.0-16.0); Immature Granulocytes % 1.3 %; Immature Granulocytes Absolute 0.08 #; Lymphocytes # 1.7 10*3/uL (1.4-4.0); Lymphocytes % 27.2 % (21.3-54.2); Mean Corpuscular HGB Conc 33.6 GM/DL (32-36); Mean Corpuscular Hemoglobin 27 PG (27-34); Mean Corpuscular Volume 80.9 FL (87-102); Mean Platelet Volume 10.1 FL (9.6-12.0); Monocytes # 0.5 10*3/uL (0.11-0.8); Monocytes % 7.3 % (1.7-12.7); Neutrophils # 3.4 10*3/uL (1.4-7.4); Neutrophils % 54.2 % (38.7-73.9); Platelet Count 279 T/CUMM (130-400); Red Cell Distribution Width 14.8 % (9.3-17.3); White Blood Count 6.3 T/CUMM (4-12)
[2018-01-27] MEDS: MEROPENEM 500 MG in SODIUM CHLORIDE 0.9% 100 ML IV SCH ×2 (10:15→21:44)
[2018-01-27] MEDS: DOXYCYCLINE HYCLATE 100 MG CAPSULE PO SCH ×2 (10:33→21:16)
[2018-01-27] MEDS: rOPINIRole 0.25 MG TABLET PO SCH ×3 (10:33→21:21)
[2018-01-27] MEDS: POLYETHYLENE GLYCOL POWDER 17 GM PACK PO SCH (10:33)
[2018-01-27] MEDS: POTASSIUM CHLORIDE 20 MEQ TABLET PO SCH ×2 (10:33→21:17)
[2018-01-27] MEDS: ISOSORBIDE MONONITRATE 60 MG TABLET PO SCH (10:34)
[2018-01-27] MEDS: DOCUSATE SODIUM 100 MG CAPSULE PO SCH ×2 (10:34→21:16)
[2018-01-27] MEDS: FENOFIBRATE 145 MG TABLET PO SCH (10:34)
[2018-01-27] MEDS: MAGNESIUM OXIDE 400 MG TABLET PO SCH (10:34)
[2018-01-27] MEDS: CLOPIDOGREL 75 MG TABLET PO SCH (10:35)
[2018-01-27] MEDS: ENOXAPARIN 30 MG/0.3 ML SYRINGE SUBCUT SCH (10:35)
[2018-01-27] MEDS: GABAPENTIN 100 MG CAPSULE PO SCH ×2 (10:35→21:16)
[2018-01-27] MEDS: PANTOPRAZOLE 40 MG TABLET PO SCH (10:35)
[2018-01-27] MEDS: ASPIRIN EC 81 MG TABLET PO SCH (10:36)
[2018-01-27] MEDS: LEVOTHYROXINE 75 MCG TABLET PO SCH (10:36)
[2018-01-27] MEDS: FUROSEMIDE 40 MG TABLET PO SCH ×2 (10:36→15:32)
[2018-01-27] MEDS: LORATADINE 10 MG TABLET PO SCH (10:36)
[2018-01-27] MEDS: amLODIPine 10 MG TABLET PO SCH (10:37)
[2018-01-27] MEDS: CARVEDILOL 25 MG TABLET PO SCH ×2 (10:37→21:17)
[2018-01-27] MEDS: SODIUM CHLORIDE 0.45% 1,000 ML IV SCH (10:56)
[2018-01-27] MEDS: ONDANSETRON 4 MG/2 ML VIAL IV PRN (14:07)
[2018-01-27] MEDS: DONEPEZIL 10 MG TABLET PO SCH (21:16)
[2018-01-27] MEDS: ATORVASTATIN 20 MG TABLET PO SCH (21:17)
[2018-01-27] MEDS: PARoxetine 20 MG TABLET PO SCH (21:17)
[2018-01-27] MEDS: OXYBUTYNIN XL 10 MG TABLET PO SCH (21:21)
[2018-01-28 04:28] LABS: Basophils # 0.1 10*3/uL (0.0-0.2); Basophils % 1.1 % (0.0-0.8); Eosinophils # 0.5 10*3/uL (0.0-0.87); Eosinophils % 8.6 % (0.00-10.9); Hematocrit 24.3 VOL% (35.7-47.0); Immature Granulocytes % 1.4 %; Immature Granulocytes Absolute 0.08 #; Lymphocytes # 1.8 10*3/uL (1.4-4.0); Lymphocytes % 31.8 % (21.3-54.2); Mean Corpuscular HGB Conc 32.9 GM/DL (32-36); Mean Corpuscular Hemoglobin 27 PG (27-34); Mean Corpuscular Volume 82.1 FL (87-102); Mean Platelet Volume 10.1 FL (9.6-12.0); Monocytes # 0.5 10*3/uL (0.11-0.8); Monocytes % 9.2 % (1.7-12.7); Neutrophils # 2.7 10*3/uL (1.4-7.4); Neutrophils % 47.9 % (38.7-73.9); Platelet Count 283 T/CUMM (130-400); Red Blood Count 2.96 MC/CUMM (3.8-5.5); Red Cell Distribution Width 14.6 % (9.3-17.3); White Blood Count 5.6 T/CUMM (4-12)
[2018-01-28 04:58] LABS: Calcium 8.3 MG/DL (8.5-10.1)
[2018-01-28] MEDS: LEVOTHYROXINE 75 MCG TABLET PO SCH (05:39)
[2018-01-28] MEDS ORDERED: SODIUM CHLORIDE 0.9% 1,000 ML IV PRN (08:57)
[2018-01-28] MEDS ORDERED: FUROSEMIDE 40 MG/4 ML VIAL IV ONE (08:58)
[2018-01-28] MEDS: FENOFIBRATE 145 MG TABLET PO SCH (09:59)
[2018-01-28] MEDS: POLYETHYLENE GLYCOL POWDER 17 GM PACK PO SCH (09:59)
[2018-01-28] MEDS: amLODIPine 10 MG TABLET PO SCH (10:00)
[2018-01-28] MEDS: GABAPENTIN 100 MG CAPSULE PO SCH ×2 (10:01→21:51)
[2018-01-28] MEDS: ISOSORBIDE MONONITRATE 60 MG TABLET PO SCH (10:02)
[2018-01-28] MEDS: CARVEDILOL 25 MG TABLET PO SCH ×2 (10:02→21:52)
[2018-01-28] MEDS: MAGNESIUM OXIDE 400 MG TABLET PO SCH (10:02)
[2018-01-28] MEDS: PANTOPRAZOLE 40 MG TABLET PO SCH (10:02)
[2018-01-28] MEDS: rOPINIRole 0.25 MG TABLET PO SCH ×3 (10:02→21:51)
[2018-01-28] MEDS: LORATADINE 10 MG TABLET PO SCH (10:03)
[2018-01-28] MEDS: DOCUSATE SODIUM 100 MG CAPSULE PO SCH ×2 (10:03→21:52)
[2018-01-28] MEDS: DOXYCYCLINE HYCLATE 100 MG CAPSULE PO SCH ×2 (10:03→21:53)
[2018-01-28] MEDS: FUROSEMIDE 40 MG TABLET PO SCH ×2 (10:03→16:56)
[2018-01-28] MEDS: CLOPIDOGREL 75 MG TABLET PO SCH (10:03)
[2018-01-28] MEDS: POTASSIUM CHLORIDE 20 MEQ TABLET PO SCH ×2 (10:04→21:51)
[2018-01-28] MEDS: ASPIRIN EC 81 MG TABLET PO SCH (10:04)
[2018-01-28] MEDS: ENOXAPARIN 30 MG/0.3 ML SYRINGE SUBCUT SCH (10:06)
[2018-01-28] MEDS: MEROPENEM 500 MG in SODIUM CHLORIDE 0.9% 100 ML IV SCH ×2 (10:14→21:54)
[2018-01-28] MEDS: SODIUM CHLORIDE 0.45% 1,000 ML IV SCH (18:00)
[2018-01-28 19:24] LABS: Hematocrit 32.6 VOL% (35.7-47.0)
[2018-01-28 19:25] LABS: Hemoglobin 10.7 GM/DL (12.0-16.0)
[2018-01-28] MEDS: OXYBUTYNIN XL 10 MG TABLET PO SCH (21:50)
[2018-01-28] MEDS: PARoxetine 20 MG TABLET PO SCH (21:51)
[2018-01-28] MEDS: DONEPEZIL 10 MG TABLET PO SCH (21:51)
[2018-01-28] MEDS: ATORVASTATIN 20 MG TABLET PO SCH (21:51)
[2018-01-29] MEDS: LEVOTHYROXINE 75 MCG TABLET PO SCH (06:26)
[2018-01-29] MEDS: FUROSEMIDE 40 MG TABLET PO SCH ×3 (09:49→14:08)
[2018-01-29] MEDS: ISOSORBIDE MONONITRATE 60 MG TABLET PO SCH ×3 (09:51→14:07)
[2018-01-29] MEDS: DOXYCYCLINE HYCLATE 100 MG CAPSULE PO SCH ×3 (09:51→14:07)
[2018-01-29] MEDS: amLODIPine 10 MG TABLET PO SCH ×3 (09:51→14:07)
[2018-01-29] MEDS: PANTOPRAZOLE 40 MG TABLET PO SCH ×3 (09:51→14:08)
[2018-01-29] MEDS: ENOXAPARIN 30 MG/0.3 ML SYRINGE SUBCUT SCH ×3 (09:52→14:05)
[2018-01-29] MEDS: rOPINIRole 0.25 MG TABLET PO SCH ×3 (09:52→14:08)
[2018-01-29] MEDS: ASPIRIN EC 81 MG TABLET PO SCH ×3 (09:52→14:07)
[2018-01-29] MEDS: GABAPENTIN 100 MG CAPSULE PO SCH ×3 (09:52→14:07)
[2018-01-29] MEDS: POLYETHYLENE GLYCOL POWDER 17 GM PACK PO SCH ×3 (09:52→14:07)
[2018-01-29] MEDS: CLOPIDOGREL 75 MG TABLET PO SCH ×3 (09:52→14:07)
[2018-01-29] MEDS: MAGNESIUM OXIDE 400 MG TABLET PO SCH ×3 (09:52→14:07)
[2018-01-29] MEDS: FENOFIBRATE 145 MG TABLET PO SCH ×3 (09:53→14:08)
[2018-01-29] MEDS: LORATADINE 10 MG TABLET PO SCH ×3 (09:53→14:07)
[2018-01-29] MEDS: DOCUSATE SODIUM 100 MG CAPSULE PO SCH ×2 (09:53→12:14)
[2018-01-29] MEDS: POTASSIUM CHLORIDE 20 MEQ TABLET PO SCH ×3 (09:53→14:08)
[2018-01-29] MEDS: CARVEDILOL 25 MG TABLET PO SCH (09:53)
[2018-01-29] MEDS: MEROPENEM 500 MG in SODIUM CHLORIDE 0.9% 100 ML IV SCH (11:20)
[2018-01-29 17:06] VITALS: BP 167/69
== END 2018-01-29 17:14 | DRG 690 ==
LOC: EDBD → EDUNIT# → N.ED 05:44 → N.EDINP 08:13 → N.TELEN 09:47
PROVIDERS: ADMIT Internal Medicine; ATTEND Internal Medicine

== ENCOUNTER 2018-04-20 14:51 | Inpatient (IN) ==
[2018-04-20] MEDS ORDERED: cefTRIAXone 1,000 MG in SODIUM CHLORIDE 0.9% 100 ML IV STA (15:23)
[2018-04-20] MEDS ORDERED: SODIUM CHLORIDE 0.9% 1,000 ML IV STA (15:25)
[2018-04-20 16:13] LABS: Basophils % 0.8 % (0.0-0.8); Eosinophils # 0.2 10*3/uL (0.0-0.87); Eosinophils % 3.3 % (0.00-10.9); Hematocrit 27.7 VOL% (35.7-47.0); Hemoglobin 8.9 GM/DL (12.0-16.0); Immature Granulocytes % 1.3 %; Immature Granulocytes Absolute 0.07 #; Lymphocytes # 1.2 10*3/uL (1.4-4.0); Lymphocytes % 23.8 % (21.3-54.2); Mean Corpuscular HGB Conc 32.1 GM/DL (32-36); Mean Corpuscular Hemoglobin 27 PG (27-34); Mean Corpuscular Volume 84.5 FL (87-102); Mean Platelet Volume 10.5 FL (9.6-12.0); Monocytes # 0.6 10*3/uL (0.11-0.8); Monocytes % 11.9 % (1.7-12.7); Neutrophils # 3.1 10*3/uL (1.4-7.4); Neutrophils % 58.9 % (38.7-73.9); Platelet Count 264 T/CUMM (130-400); Red Blood Count 3.28 MC/CUMM (3.8-5.5); Red Cell Distribution Width 15.5 % (9.3-17.3); White Blood Count 5.2 T/CUMM (4-12)
[2018-04-20 16:16] LABS: Apearance,Urine CLOUDY (Clear); Bacteria,Urine Occasional /HPF (Few); Bilirubin,Urine Negative (Negative); Blood, Urine Negative (Negative); Glucose,Urine (UA) Negative (Negative); Ketones,Urine Negative (Negative); Nitrite,Urine Negative (Negative); Protein,Urine 30 MG/DL; RBC,Urine 5 /HPF (0-4); Urine Color Yellow (Yellow); Urine Specific Gravity 1.009 (1.001-1.035); Urine Urobilinogen < 2.0 EU/DL (0.2-1.0); WBC,Urine 65 /HPF (0-6)
[2018-04-20] MEDS ORDERED: MEROPENEM 1,000 MG in SODIUM CHLORIDE 0.9% 100 ML IV STA (16:21)
[2018-04-20 16:24] LABS: Barbiturates Screen,Urine Negative (Negative); Benzodiazepines Screen,Urine Negative (Negative); Cannabinoid Screen,Urine Negative (Negative); Opiate Screen,Urine Negative (Negative); Phencyclidine Screen,Urine Negative (Negative)
[2018-04-20 16:31] LABS: INR 1.2; PT Patient Result 12.5 SECS; Partial Thromboplastin Time 29.5 SECS (0-40)
[2018-04-20 16:34] LABS: Albumin 2.6 G/DL (3.4-5.0); Bilirubin,Total 0.5 MG/DL (0.2-1.0); Calcium 8.9 MG/DL (8.5-10.1); Osmolality,Calculated 298.5 MOS/KG (273-304); Potassium 2.6 MMOL/L (3.5-5.1); Total Protein 7.1 G/DL (6.4-8.3)
[2018-04-20] MEDS ORDERED: ONDANSETRON 4 MG/2 ML VIAL IV PRN (18:00)
[2018-04-20] MEDS ORDERED: ACETAMINOPHEN 325 MG TABLET PO PRN (18:00)
[2018-04-20] MEDS: SODIUM CHLORIDE 0.9% 1,000 ML IV SCH (18:43)
[2018-04-20] MEDS: DOCUSATE SODIUM 100 MG CAPSULE PO SCH (22:02)
[2018-04-21] MEDS: SODIUM CHLORIDE 0.9% 1,000 ML IV SCH ×2 (03:53→22:02)
[2018-04-21] MEDS: LEVOTHYROXINE 75 MCG TABLET PO SCH (06:12)
[2018-04-21] MEDS ORDERED: GLUCAGON 1 MG VIAL IM PRN (07:11)
[2018-04-21] MEDS ORDERED: DEXTROSE 50% 25 GM/50 ML VIAL IV PRN (07:11)
[2018-04-21] MEDS ORDERED: POTASSIUM CHLORIDE 20 MEQ TABLET PO ONE (08:25)
[2018-04-21] MEDS ORDERED: PANTOPRAZOLE 40 MG TABLET PO SCH (09:00)
[2018-04-21] MEDS ORDERED: cefTRIAXone 1,000 MG in SYRINGE 1 EACH IV SCH (09:00)
[2018-04-21] MEDS: DOCUSATE SODIUM 100 MG CAPSULE PO SCH ×4 (09:06→22:02)
[2018-04-21 09:15] LABS: Basophils # 0.1 10*3/uL (0.0-0.2); Basophils % 0.8 % (0.0-0.8); Eosinophils # 0.3 10*3/uL (0.0-0.87); Eosinophils % 5.5 % (0.00-10.9); Hematocrit 26.4 VOL% (35.7-47.0); Hemoglobin 8.5 GM/DL (12.0-16.0); Immature Granulocytes % 1.5 %; Immature Granulocytes Absolute 0.09 #; Lymphocytes # 1.1 10*3/uL (1.4-4.0); Lymphocytes % 17.8 % (21.3-54.2); Mean Corpuscular HGB Conc 32.2 GM/DL (32-36); Mean Corpuscular Hemoglobin 27 PG (27-34); Mean Corpuscular Volume 84.6 FL (87-102); Mean Platelet Volume 10.5 FL (9.6-12.0); Monocytes # 0.6 10*3/uL (0.11-0.8); Monocytes % 9.5 % (1.7-12.7); Neutrophils % 64.9 % (38.7-73.9); Platelet Count 268 T/CUMM (130-400); Red Blood Count 3.12 MC/CUMM (3.8-5.5); Red Cell Distribution Width 15.7 % (9.3-17.3); White Blood Count 6.2 T/CUMM (4-12)
[2018-04-21] MEDS ORDERED: cloNIDine 0.1 MG TABLET PO PRN (09:28)
[2018-04-21] MEDS ORDERED: PHENYLEPHRINE 0.25% SUPP RECTAL PRN (09:28)
[2018-04-21] MEDS ORDERED: ONDANSETRON 4 MG TABLET PO PRN (09:28)
[2018-04-21 09:41] LABS: Calcium 8.4 MG/DL (8.5-10.1); Osmolality,Calculated 300.1 MOS/KG (273-304); Potassium 2.7 MMOL/L (3.5-5.1)
[2018-04-21] MEDS ORDERED: NON-FORMULARY MEDICATION (Omeprazole [Omeprazole] 40 MG) PO SCH (09:45)
[2018-04-21] MEDS: MEROPENEM 500 MG in SODIUM CHLORIDE 0.9% 100 ML IV SCH ×2 (09:46→16:36)
[2018-04-21] MEDS: clonazePAM 0.5 MG TABLET PO SCH ×4 (10:24→22:02)
[2018-04-21] MEDS: amLODIPine 10 MG TABLET PO SCH ×3 (10:25→11:47)
[2018-04-21] MEDS: ISOSORBIDE MONONITRATE 60 MG TABLET PO SCH ×3 (10:25→11:47)
[2018-04-21] MEDS: FENOFIBRATE 145 MG TABLET PO SCH ×3 (10:25→11:47)
[2018-04-21] MEDS: GABAPENTIN 300 MG CAPSULE PO SCH ×4 (10:26→22:02)
[2018-04-21] MEDS: CARVEDILOL 25 MG TABLET PO SCH ×4 (10:26→22:02)
[2018-04-21] MEDS: ASPIRIN EC 81 MG TABLET PO SCH ×3 (10:26→11:47)
[2018-04-21] MEDS: MEMANTINE 5 MG TABLET PO SCH ×4 (10:26→22:02)
[2018-04-21] MEDS: MAGNESIUM OXIDE 400 MG TABLET PO SCH ×3 (10:26→11:46)
[2018-04-21] MEDS: LORATADINE 10 MG TABLET PO SCH ×3 (10:26→11:49)
[2018-04-21] MEDS: CLOPIDOGREL 75 MG TABLET PO SCH ×3 (10:26→11:46)
[2018-04-21] MEDS: FERROUS SULFATE ER 140 MG TABLET PO SCH ×2 (10:47→11:48)
[2018-04-21] MEDS ORDERED: POTASSIUM CHLORIDE RIDER 10 MEQ in PREMIX 1 EACH IV ONE (10:58)
[2018-04-21] MEDS: rOPINIRole 0.25 MG TABLET PO SCH ×2 (16:35→22:02)
[2018-04-21] MEDS: FUROSEMIDE 40 MG TABLET PO SCH (16:35)
[2018-04-21] MEDS: DULoxetine 30 MG CAPSULE PO SCH (22:02)
[2018-04-21] MEDS: OXYBUTYNIN XL 10 MG TABLET PO SCH (22:02)
[2018-04-21] MEDS: ENOXAPARIN 30 MG/0.3 ML SYRINGE SUBCUT SCH (22:02)
[2018-04-21] MEDS: DIVALPROEX ER 250 MG TABLET PO SCH (22:02)
[2018-04-21] MEDS: DONEPEZIL 10 MG TABLET PO SCH (22:02)
[2018-04-21] MEDS: PANTOPRAZOLE 40 MG TABLET PO SCH (22:02)
[2018-04-21] MEDS: ATORVASTATIN 20 MG TABLET PO SCH (22:02)
[2018-04-22] MEDS: SODIUM CHLORIDE 0.9% 1,000 ML IV SCH ×4 (04:05→21:14)
[2018-04-22 07:29] LABS: Basophils % 0.7 % (0.0-0.8); Eosinophils # 0.5 10*3/uL (0.0-0.87); Eosinophils % 8.9 % (0.00-10.9); Hematocrit 25.3 VOL% (35.7-47.0); Hemoglobin 8.2 GM/DL (12.0-16.0); Immature Granulocytes Absolute 0.11 #; Lymphocytes # 1.2 10*3/uL (1.4-4.0); Lymphocytes % 21.4 % (21.3-54.2); Mean Corpuscular HGB Conc 32.4 GM/DL (32-36); Mean Corpuscular Hemoglobin 28 PG (27-34); Mean Corpuscular Volume 85.5 FL (87-102); Mean Platelet Volume 10.3 FL (9.6-12.0); Monocytes # 0.5 10*3/uL (0.11-0.8); Monocytes % 8.7 % (1.7-12.7); Neutrophils # 3.2 10*3/uL (1.4-7.4); Neutrophils % 58.3 % (38.7-73.9); Platelet Count 261 T/CUMM (130-400); Red Blood Count 2.96 MC/CUMM (3.8-5.5); Red Cell Distribution Width 15.9 % (9.3-17.3); White Blood Count 5.5 T/CUMM (4-12)
[2018-04-22 07:44] LABS: Osmolality,Calculated 304.7 MOS/KG (273-304)
[2018-04-22] MEDS ORDERED: POTASSIUM CHLORIDE 20 MEQ TABLET PO ONE ×2 (08:56→16:00)
[2018-04-22] MEDS: rOPINIRole 0.25 MG TABLET PO SCH ×3 (09:22→21:12)
[2018-04-22] MEDS: LORATADINE 10 MG TABLET PO SCH (09:22)
[2018-04-22] MEDS: ISOSORBIDE MONONITRATE 60 MG TABLET PO SCH (09:22)
[2018-04-22] MEDS: GABAPENTIN 300 MG CAPSULE PO SCH ×2 (09:22→21:12)
[2018-04-22] MEDS: MEMANTINE 5 MG TABLET PO SCH ×2 (09:22→21:12)
[2018-04-22] MEDS: FENOFIBRATE 145 MG TABLET PO SCH (09:22)
[2018-04-22] MEDS: CLOPIDOGREL 75 MG TABLET PO SCH (09:23)
[2018-04-22] MEDS: MAGNESIUM OXIDE 400 MG TABLET PO SCH (09:23)
[2018-04-22] MEDS: PANTOPRAZOLE 40 MG TABLET PO SCH ×2 (09:23→21:12)
[2018-04-22] MEDS: ASPIRIN EC 81 MG TABLET PO SCH (09:23)
[2018-04-22] MEDS: CARVEDILOL 25 MG TABLET PO SCH ×2 (09:23→21:12)
[2018-04-22] MEDS: DOCUSATE SODIUM 100 MG CAPSULE PO SCH ×2 (09:23→21:12)
[2018-04-22] MEDS: FUROSEMIDE 40 MG TABLET PO SCH ×2 (09:23→15:04)
[2018-04-22] MEDS: clonazePAM 0.5 MG TABLET PO SCH ×2 (09:23→21:11)
[2018-04-22] MEDS: amLODIPine 10 MG TABLET PO SCH (09:23)
[2018-04-22] MEDS: FERROUS SULFATE ER 140 MG TABLET PO SCH (09:24)
[2018-04-22] MEDS: MEROPENEM 500 MG in SODIUM CHLORIDE 0.9% 100 ML IV SCH ×2 (10:55→17:56)
[2018-04-22] MEDS: DULoxetine 30 MG CAPSULE PO SCH (21:11)
[2018-04-22] MEDS: DONEPEZIL 10 MG TABLET PO SCH (21:11)
[2018-04-22] MEDS: ENOXAPARIN 30 MG/0.3 ML SYRINGE SUBCUT SCH (21:11)
[2018-04-22] MEDS: ATORVASTATIN 20 MG TABLET PO SCH (21:12)
[2018-04-22] MEDS: DIVALPROEX ER 250 MG TABLET PO SCH (21:12)
[2018-04-22] MEDS: OXYBUTYNIN XL 10 MG TABLET PO SCH (21:12)
[2018-04-23] MEDS: MEROPENEM 500 MG in SODIUM CHLORIDE 0.9% 100 ML IV SCH ×2 (05:22→16:22)
[2018-04-23] MEDS: LEVOTHYROXINE 75 MCG TABLET PO SCH (06:05)
[2018-04-23 06:30] LABS: Osmolality,Calculated 300.7 MOS/KG (273-304); Potassium 3.1 MMOL/L (3.5-5.1)
[2018-04-23 06:42] LABS: Basophils % 0.7 % (0.0-0.8); Eosinophils # 0.5 10*3/uL (0.0-0.87); Eosinophils % 9.1 % (0.00-10.9); Hematocrit 24.6 VOL% (35.7-47.0); Immature Granulocytes % 2.4 %; Immature Granulocytes Absolute 0.13 #; Lymphocytes # 1.6 10*3/uL (1.4-4.0); Lymphocytes % 28.1 % (21.3-54.2); Mean Corpuscular HGB Conc 32.5 GM/DL (32-36); Mean Corpuscular Hemoglobin 27 PG (27-34); Mean Platelet Volume 10.8 FL (9.6-12.0); Monocytes # 0.5 10*3/uL (0.11-0.8); Monocytes % 8.2 % (1.7-12.7); Neutrophils # 2.8 10*3/uL (1.4-7.4); Neutrophils % 51.5 % (38.7-73.9); Platelet Count 271 T/CUMM (130-400); Red Blood Count 2.93 MC/CUMM (3.8-5.5); Red Cell Distribution Width 15.9 % (9.3-17.3); White Blood Count 5.5 T/CUMM (4-12)
[2018-04-23] MEDS ORDERED: SODIUM CHLORIDE 0.9% 1,000 ML IV PRN (08:32)
[2018-04-23] MEDS ORDERED: FUROSEMIDE 40 MG/4 ML VIAL IV ONE (08:33)
[2018-04-23] MEDS: clonazePAM 0.5 MG TABLET PO SCH ×2 (09:26→22:14)
[2018-04-23] MEDS: ISOSORBIDE MONONITRATE 60 MG TABLET PO SCH (09:26)
[2018-04-23] MEDS: FUROSEMIDE 40 MG TABLET PO SCH ×2 (09:26→16:21)
[2018-04-23] MEDS: PANTOPRAZOLE 40 MG TABLET PO SCH ×2 (09:26→22:14)
[2018-04-23] MEDS: MAGNESIUM OXIDE 400 MG TABLET PO SCH (09:26)
[2018-04-23] MEDS: MEMANTINE 5 MG TABLET PO SCH ×2 (09:27→22:13)
[2018-04-23] MEDS: ASPIRIN EC 81 MG TABLET PO SCH (09:27)
[2018-04-23] MEDS: POTASSIUM CHLORIDE 20 MEQ TABLET PO SCH ×2 (09:27→22:14)
[2018-04-23] MEDS: rOPINIRole 0.25 MG TABLET PO SCH ×3 (09:27→22:13)
[2018-04-23] MEDS: GABAPENTIN 300 MG CAPSULE PO SCH ×2 (09:27→22:14)
[2018-04-23] MEDS: CLOPIDOGREL 75 MG TABLET PO SCH (09:27)
[2018-04-23] MEDS: FENOFIBRATE 145 MG TABLET PO SCH (09:27)
[2018-04-23] MEDS: LORATADINE 10 MG TABLET PO SCH (09:27)
[2018-04-23] MEDS: amLODIPine 10 MG TABLET PO SCH (09:27)
[2018-04-23] MEDS: CARVEDILOL 25 MG TABLET PO SCH ×2 (09:27→22:14)
[2018-04-23] MEDS: DOCUSATE SODIUM 100 MG CAPSULE PO SCH ×2 (09:27→22:13)
[2018-04-23] MEDS: FERROUS SULFATE ER 140 MG TABLET PO SCH (09:28)
[2018-04-23] MEDS: SODIUM CHLORIDE 0.9% 1,000 ML IV SCH ×2 (09:29→13:15)
[2018-04-23] MEDS ORDERED: FUROSEMIDE 40 MG/4 ML VIAL ONE (16:06)
[2018-04-23] MEDS: hydrALAZINE 20 MG/1 ML VIAL IV PRN (16:32)
[2018-04-23] MEDS: DULoxetine 30 MG CAPSULE PO SCH (22:13)
[2018-04-23] MEDS: OXYBUTYNIN XL 10 MG TABLET PO SCH (22:13)
[2018-04-23] MEDS: DIVALPROEX ER 250 MG TABLET PO SCH (22:13)
[2018-04-23] MEDS: DONEPEZIL 10 MG TABLET PO SCH (22:14)
[2018-04-23] MEDS: ATORVASTATIN 20 MG TABLET PO SCH (22:14)
[2018-04-23] MEDS: ENOXAPARIN 30 MG/0.3 ML SYRINGE SUBCUT SCH (22:16)
[2018-04-24] MEDS: DOCUSATE SODIUM 100 MG CAPSULE PO SCH ×3 (01:01→22:14)
[2018-04-24] MEDS: CARVEDILOL 25 MG TABLET PO SCH ×3 (01:01→22:14)
[2018-04-24] MEDS: DONEPEZIL 10 MG TABLET PO SCH ×2 (01:01→22:09)
[2018-04-24] MEDS: ENOXAPARIN 30 MG/0.3 ML SYRINGE SUBCUT SCH ×3 (01:02→23:25)
[2018-04-24] MEDS: OXYBUTYNIN XL 10 MG TABLET PO SCH ×2 (01:02→22:08)
[2018-04-24] MEDS: ATORVASTATIN 20 MG TABLET PO SCH ×2 (01:02→22:09)
[2018-04-24] MEDS: DIVALPROEX ER 250 MG TABLET PO SCH ×2 (01:02→22:08)
[2018-04-24] MEDS: DULoxetine 30 MG CAPSULE PO SCH ×2 (01:02→22:09)
[2018-04-24] MEDS: clonazePAM 0.5 MG TABLET PO SCH ×4 (01:02→22:08)
[2018-04-24] MEDS: POTASSIUM CHLORIDE 20 MEQ TABLET PO SCH ×4 (01:02→23:26)
[2018-04-24] MEDS: GABAPENTIN 300 MG CAPSULE PO SCH ×3 (01:03→22:09)
[2018-04-24] MEDS: rOPINIRole 0.25 MG TABLET PO SCH ×4 (01:03→22:09)
[2018-04-24] MEDS: SODIUM CHLORIDE 0.9% 1,000 ML IV SCH ×3 (01:03→22:00)
[2018-04-24] MEDS: MEMANTINE 5 MG TABLET PO SCH ×3 (01:03→22:09)
[2018-04-24] MEDS: PANTOPRAZOLE 40 MG TABLET PO SCH ×3 (01:03→22:09)
[2018-04-24 04:49] LABS: Basophils # 0.1 10*3/uL (0.0-0.2); Basophils % 1.5 % (0.0-0.8); Eosinophils # 0.5 10*3/uL (0.0-0.87); Eosinophils % 8.5 % (0.00-10.9); Hematocrit 35.1 VOL% (35.7-47.0); Immature Granulocytes % 3.9 %; Immature Granulocytes Absolute 0.23 #; Lymphocytes # 1.7 10*3/uL (1.4-4.0); Lymphocytes % 28.3 % (21.3-54.2); Mean Corpuscular Hemoglobin 28 PG (27-34); Mean Corpuscular Volume 83.2 FL (87-102); Mean Platelet Volume 10.5 FL (9.6-12.0); Monocytes # 0.6 10*3/uL (0.11-0.8); Monocytes % 9.5 % (1.7-12.7); Neutrophils # 2.9 10*3/uL (1.4-7.4); Neutrophils % 48.3 % (38.7-73.9); Platelet Count 283 T/CUMM (130-400); Red Cell Distribution Width 16.1 % (9.3-17.3)
[2018-04-24 05:15] LABS: Calcium 8.3 MG/DL (8.5-10.1); Osmolality,Calculated 293.1 MOS/KG (273-304); Potassium 3.4 MMOL/L (3.5-5.1)
[2018-04-24 05:32] LABS: Red Blood Count 4.22 MC/CUMM (3.8-5.5)
[2018-04-24 05:33] LABS: Hemoglobin 11.6 GM/DL (12.0-16.0)
[2018-04-24] MEDS: MEROPENEM 500 MG in SODIUM CHLORIDE 0.9% 100 ML IV SCH ×2 (05:52→17:16)
[2018-04-24] MEDS: LEVOTHYROXINE 75 MCG TABLET PO SCH (06:45)
[2018-04-24] MEDS: LORATADINE 10 MG TABLET PO SCH (08:43)
[2018-04-24] MEDS: FUROSEMIDE 40 MG TABLET PO SCH ×2 (08:43→15:35)
[2018-04-24] MEDS: ASPIRIN EC 81 MG TABLET PO SCH (08:43)
[2018-04-24] MEDS: MAGNESIUM OXIDE 400 MG TABLET PO SCH (08:44)
[2018-04-24] MEDS: ISOSORBIDE MONONITRATE 60 MG TABLET PO SCH (08:44)
[2018-04-24] MEDS: amLODIPine 10 MG TABLET PO SCH (08:45)
[2018-04-24] MEDS: FERROUS SULFATE ER 140 MG TABLET PO SCH (08:45)
[2018-04-24] MEDS: FENOFIBRATE 145 MG TABLET PO SCH (08:45)
[2018-04-24] MEDS: CLOPIDOGREL 75 MG TABLET PO SCH ×2 (08:48→10:33)
[2018-04-24] MEDS: HALOPERIDOL 5 MG/ML AMP IM PRN ×4 (09:40→23:14)
[2018-04-25 05:47] LABS: Calcium 8.7 MG/DL (8.5-10.1); Potassium 3.5 MMOL/L (3.5-5.1)
[2018-04-25] MEDS: MEROPENEM 500 MG in SODIUM CHLORIDE 0.9% 100 ML IV SCH ×2 (05:57→16:13)
[2018-04-25] MEDS: SODIUM CHLORIDE 0.9% 1,000 ML IV SCH ×3 (05:57→21:35)
[2018-04-25] MEDS: LEVOTHYROXINE 75 MCG TABLET PO SCH (06:24)
[2018-04-25] MEDS: POTASSIUM CHLORIDE 20 MEQ TABLET PO SCH ×2 (08:03→22:20)
[2018-04-25] MEDS: ISOSORBIDE MONONITRATE 60 MG TABLET PO SCH (08:03)
[2018-04-25] MEDS: rOPINIRole 0.25 MG TABLET PO SCH ×3 (08:03→22:20)
[2018-04-25] MEDS: FENOFIBRATE 145 MG TABLET PO SCH (08:03)
[2018-04-25] MEDS: CARVEDILOL 25 MG TABLET PO SCH ×2 (08:03→21:41)
[2018-04-25] MEDS: GABAPENTIN 300 MG CAPSULE PO SCH ×2 (08:03→22:20)
[2018-04-25] MEDS: MEMANTINE 5 MG TABLET PO SCH ×2 (08:03→22:20)
[2018-04-25] MEDS: amLODIPine 10 MG TABLET PO SCH (08:04)
[2018-04-25] MEDS: ASPIRIN EC 81 MG TABLET PO SCH (08:04)
[2018-04-25] MEDS: DOCUSATE SODIUM 100 MG CAPSULE PO SCH ×2 (08:04→22:20)
[2018-04-25] MEDS: LORATADINE 10 MG TABLET PO SCH (08:04)
[2018-04-25] MEDS: MAGNESIUM OXIDE 400 MG TABLET PO SCH (08:04)
[2018-04-25] MEDS: FUROSEMIDE 40 MG TABLET PO SCH ×3 (08:04→15:47)
[2018-04-25] MEDS: CLOPIDOGREL 75 MG TABLET PO SCH (08:04)
[2018-04-25] MEDS: PANTOPRAZOLE 40 MG TABLET PO SCH ×2 (08:04→22:20)
[2018-04-25] MEDS: FERROUS SULFATE ER 140 MG TABLET PO SCH (08:05)
[2018-04-25] MEDS: clonazePAM 0.5 MG TABLET PO SCH ×2 (08:05→21:42)
[2018-04-25] MEDS: DULoxetine 30 MG CAPSULE PO SCH (21:43)
[2018-04-25] MEDS: DIVALPROEX ER 250 MG TABLET PO SCH (21:43)
[2018-04-25] MEDS: DONEPEZIL 10 MG TABLET PO SCH (21:46)
[2018-04-25] MEDS: OXYBUTYNIN XL 10 MG TABLET PO SCH (21:46)
[2018-04-25] MEDS: ENOXAPARIN 30 MG/0.3 ML SYRINGE SUBCUT SCH (22:03)
[2018-04-25] MEDS: ATORVASTATIN 20 MG TABLET PO SCH (22:20)
[2018-04-26 05:36] LABS: Calcium 8.5 MG/DL (8.5-10.1); Osmolality,Calculated 293.3 MOS/KG (273-304); Potassium 3.6 MMOL/L (3.5-5.1)
[2018-04-26] MEDS: MEROPENEM 500 MG in SODIUM CHLORIDE 0.9% 100 ML IV SCH ×2 (05:45→16:09)
[2018-04-26] MEDS: LEVOTHYROXINE 75 MCG TABLET PO SCH (06:08)
[2018-04-26] MEDS: SODIUM CHLORIDE 0.9% 1,000 ML IV SCH (06:15)
[2018-04-26] MEDS: FUROSEMIDE 40 MG TABLET PO SCH ×2 (08:21→15:01)
[2018-04-26] MEDS: amLODIPine 10 MG TABLET PO SCH (08:21)
[2018-04-26] MEDS: ISOSORBIDE MONONITRATE 60 MG TABLET PO SCH (08:21)
[2018-04-26] MEDS: CARVEDILOL 25 MG TABLET PO SCH ×2 (08:21→23:10)
[2018-04-26] MEDS: GABAPENTIN 300 MG CAPSULE PO SCH ×2 (08:21→23:11)
[2018-04-26] MEDS: CLOPIDOGREL 75 MG TABLET PO SCH (08:21)
[2018-04-26] MEDS: MEMANTINE 5 MG TABLET PO SCH ×3 (08:25→23:58)
[2018-04-26] MEDS: PANTOPRAZOLE 40 MG TABLET PO SCH ×2 (08:25→23:11)
[2018-04-26] MEDS: clonazePAM 0.5 MG TABLET PO SCH ×3 (08:25→23:55)
[2018-04-26] MEDS: DOCUSATE SODIUM 100 MG CAPSULE PO SCH ×2 (08:25→23:11)
[2018-04-26] MEDS: POTASSIUM CHLORIDE 20 MEQ TABLET PO SCH ×3 (08:25→23:55)
[2018-04-26] MEDS: LORATADINE 10 MG TABLET PO SCH (08:25)
[2018-04-26] MEDS: rOPINIRole 0.25 MG TABLET PO SCH ×3 (08:25→23:11)
[2018-04-26] MEDS: MAGNESIUM OXIDE 400 MG TABLET PO SCH (08:25)
[2018-04-26] MEDS: FENOFIBRATE 145 MG TABLET PO SCH (08:25)
[2018-04-26] MEDS: FERROUS SULFATE ER 140 MG TABLET PO SCH (08:26)
[2018-04-26] MEDS: ASPIRIN EC 81 MG TABLET PO SCH (08:39)
[2018-04-26] MEDS: DIVALPROEX ER 250 MG TABLET PO SCH ×2 (23:09→23:55)
[2018-04-26] MEDS: OXYBUTYNIN XL 10 MG TABLET PO SCH ×2 (23:10→23:55)
[2018-04-26] MEDS: ENOXAPARIN 30 MG/0.3 ML SYRINGE SUBCUT SCH ×2 (23:11→23:56)
[2018-04-26] MEDS: DONEPEZIL 10 MG TABLET PO SCH (23:11)
[2018-04-26] MEDS: ATORVASTATIN 20 MG TABLET PO SCH ×2 (23:11→23:55)
[2018-04-26] MEDS: DULoxetine 30 MG CAPSULE PO SCH ×2 (23:11→23:55)
[2018-04-27] MEDS: DONEPEZIL 10 MG TABLET PO SCH ×2 (00:57→22:35)
[2018-04-27] MEDS: PANTOPRAZOLE 40 MG TABLET PO SCH ×3 (00:57→22:37)
[2018-04-27] MEDS: DOCUSATE SODIUM 100 MG CAPSULE PO SCH ×3 (00:57→22:35)
[2018-04-27] MEDS: rOPINIRole 0.25 MG TABLET PO SCH ×4 (00:57→22:37)
[2018-04-27] MEDS: GABAPENTIN 300 MG CAPSULE PO SCH ×3 (00:57→22:36)
[2018-04-27] MEDS: MEROPENEM 500 MG in SODIUM CHLORIDE 0.9% 100 ML IV SCH ×2 (05:42→17:29)
[2018-04-27] MEDS: LEVOTHYROXINE 75 MCG TABLET PO SCH ×2 (05:45→05:48)
[2018-04-27 06:11] LABS: Calcium 8.3 MG/DL (8.5-10.1); Osmolality,Calculated 296.1 MOS/KG (273-304); Potassium 3.4 MMOL/L (3.5-5.1)
[2018-04-27] MEDS: FUROSEMIDE 40 MG TABLET PO SCH ×2 (09:04→17:35)
[2018-04-27] MEDS: FENOFIBRATE 145 MG TABLET PO SCH (09:04)
[2018-04-27] MEDS: FERROUS SULFATE ER 140 MG TABLET PO SCH (09:04)
[2018-04-27] MEDS: POTASSIUM CHLORIDE 20 MEQ TABLET PO SCH ×2 (09:05→22:36)
[2018-04-27] MEDS: MAGNESIUM OXIDE 400 MG TABLET PO SCH (09:05)
[2018-04-27] MEDS: ASPIRIN EC 81 MG TABLET PO SCH (09:05)
[2018-04-27] MEDS: amLODIPine 10 MG TABLET PO SCH (09:05)
[2018-04-27] MEDS: CLOPIDOGREL 75 MG TABLET PO SCH (09:05)
[2018-04-27] MEDS: ISOSORBIDE MONONITRATE 60 MG TABLET PO SCH (09:05)
[2018-04-27] MEDS: LORATADINE 10 MG TABLET PO SCH (09:05)
[2018-04-27] MEDS: CARVEDILOL 25 MG TABLET PO SCH ×2 (09:05→22:35)
[2018-04-27] MEDS: clonazePAM 0.5 MG TABLET PO SCH ×2 (09:05→22:36)
[2018-04-27] MEDS: MEMANTINE 5 MG TABLET PO SCH ×2 (09:05→22:36)
[2018-04-27] MEDS: DULoxetine 30 MG CAPSULE PO SCH (22:35)
[2018-04-27] MEDS: DIVALPROEX ER 250 MG TABLET PO SCH (22:35)
[2018-04-27] MEDS: OXYBUTYNIN XL 10 MG TABLET PO SCH (22:36)
[2018-04-27] MEDS: ATORVASTATIN 20 MG TABLET PO SCH (22:36)
[2018-04-27] MEDS: ENOXAPARIN 30 MG/0.3 ML SYRINGE SUBCUT SCH (22:36)
[2018-04-28] MEDS: MEROPENEM 500 MG in SODIUM CHLORIDE 0.9% 100 ML IV SCH ×2 (05:06→17:20)
[2018-04-28 05:51] LABS: Basophils # 0.1 10*3/uL (0.0-0.2); Basophils % 1.2 % (0.0-0.8); Eosinophils # 0.4 10*3/uL (0.0-0.87); Eosinophils % 4.8 % (0.00-10.9); Hematocrit 41.2 VOL% (35.7-47.0); Hemoglobin 13.4 GM/DL (12.0-16.0); Immature Granulocytes % 0.9 %; Immature Granulocytes Absolute 0.07 #; Lymphocytes # 1.5 10*3/uL (1.4-4.0); Lymphocytes % 19.5 % (21.3-54.2); Mean Corpuscular HGB Conc 32.5 GM/DL (32-36); Mean Corpuscular Hemoglobin 27 PG (27-34); Mean Corpuscular Volume 83.7 FL (87-102); Mean Platelet Volume 11.4 FL (9.6-12.0); Monocytes # 0.7 10*3/uL (0.11-0.8); Monocytes % 9.5 % (1.7-12.7); Neutrophils # 4.8 10*3/uL (1.4-7.4); Neutrophils % 64.1 % (38.7-73.9); Platelet Count 197 T/CUMM (130-400); Red Blood Count 4.92 MC/CUMM (3.8-5.5); Red Cell Distribution Width 16.1 % (9.3-17.3); White Blood Count 7.6 T/CUMM (4-12)
[2018-04-28 06:06] LABS: Calcium 8.9 MG/DL (8.5-10.1); Osmolality,Calculated 299.1 MOS/KG (273-304); Potassium 3.8 MMOL/L (3.5-5.1)
[2018-04-28 06:20] LABS: Platelet Estimate Adequate; Target Cells Few
[2018-04-28 06:21] LABS: Hypochromasia 1+; Polychromasia Few
[2018-04-28] MEDS: LEVOTHYROXINE 75 MCG TABLET PO SCH (06:45)
[2018-04-28] MEDS: ISOSORBIDE MONONITRATE 60 MG TABLET PO SCH ×2 (08:10→12:27)
[2018-04-28] MEDS: amLODIPine 10 MG TABLET PO SCH ×2 (08:11→12:28)
[2018-04-28] MEDS: POTASSIUM CHLORIDE 20 MEQ TABLET PO SCH ×3 (08:11→23:39)
[2018-04-28] MEDS: CARVEDILOL 25 MG TABLET PO SCH ×3 (08:11→23:39)
[2018-04-28] MEDS: hydrALAZINE 20 MG/1 ML VIAL IV PRN ×3 (08:31→22:35)
[2018-04-28] MEDS: SODIUM CHLORIDE 0.45% 1,000 ML IV SCH (09:30)
[2018-04-28] MEDS: LORATADINE 10 MG TABLET PO SCH (12:27)
[2018-04-28] MEDS: ASPIRIN EC 81 MG TABLET PO SCH (12:27)
[2018-04-28] MEDS: DOCUSATE SODIUM 100 MG CAPSULE PO SCH ×2 (12:27→23:39)
[2018-04-28] MEDS: FUROSEMIDE 40 MG TABLET PO SCH ×2 (12:27→16:56)
[2018-04-28] MEDS: clonazePAM 0.5 MG TABLET PO SCH ×2 (12:28→23:39)
[2018-04-28] MEDS: GABAPENTIN 300 MG CAPSULE PO SCH ×2 (12:28→23:42)
[2018-04-28] MEDS: MEMANTINE 5 MG TABLET PO SCH ×2 (12:28→23:42)
[2018-04-28] MEDS: MAGNESIUM OXIDE 400 MG TABLET PO SCH (12:28)
[2018-04-28] MEDS: FENOFIBRATE 145 MG TABLET PO SCH (12:28)
[2018-04-28] MEDS: rOPINIRole 0.25 MG TABLET PO SCH ×3 (12:28→23:44)
[2018-04-28] MEDS: CLOPIDOGREL 75 MG TABLET PO SCH (12:28)
[2018-04-28] MEDS: PANTOPRAZOLE 40 MG TABLET PO SCH ×2 (12:28→23:44)
[2018-04-28] MEDS: FERROUS SULFATE ER 140 MG TABLET PO SCH (12:29)
[2018-04-28] MEDS: DONEPEZIL 10 MG TABLET PO SCH (23:39)
[2018-04-28] MEDS: DULoxetine 30 MG CAPSULE PO SCH (23:39)
[2018-04-28] MEDS: ENOXAPARIN 30 MG/0.3 ML SYRINGE SUBCUT SCH (23:39)
[2018-04-28] MEDS: DIVALPROEX ER 250 MG TABLET PO SCH (23:39)
[2018-04-28] MEDS: ATORVASTATIN 20 MG TABLET PO SCH (23:39)
[2018-04-28] MEDS: OXYBUTYNIN XL 10 MG TABLET PO SCH (23:39)
[2018-04-29] MEDS: MEROPENEM 500 MG in SODIUM CHLORIDE 0.9% 100 ML IV SCH ×2 (05:23→17:31)
[2018-04-29] MEDS: LEVOTHYROXINE 75 MCG TABLET PO SCH (06:35)
[2018-04-29] MEDS: amLODIPine 10 MG TABLET PO SCH (10:40)
[2018-04-29] MEDS: FUROSEMIDE 40 MG TABLET PO SCH ×2 (10:40→16:12)
[2018-04-29] MEDS: FENOFIBRATE 145 MG TABLET PO SCH (10:40)
[2018-04-29] MEDS: GABAPENTIN 300 MG CAPSULE PO SCH ×2 (10:40→23:23)
[2018-04-29] MEDS: CARVEDILOL 25 MG TABLET PO SCH ×2 (10:40→23:27)
[2018-04-29] MEDS: MAGNESIUM OXIDE 400 MG TABLET PO SCH (10:40)
[2018-04-29] MEDS: CLOPIDOGREL 75 MG TABLET PO SCH (10:40)
[2018-04-29] MEDS: ASPIRIN EC 81 MG TABLET PO SCH (10:40)
[2018-04-29] MEDS: rOPINIRole 0.25 MG TABLET PO SCH ×3 (10:40→23:24)
[2018-04-29] MEDS: FERROUS SULFATE ER 140 MG TABLET PO SCH (10:40)
[2018-04-29] MEDS: ISOSORBIDE MONONITRATE 60 MG TABLET PO SCH (10:40)
[2018-04-29] MEDS: POTASSIUM CHLORIDE 20 MEQ TABLET PO SCH ×2 (10:41→23:24)
[2018-04-29] MEDS: PANTOPRAZOLE 40 MG TABLET PO SCH ×2 (10:41→23:28)
[2018-04-29] MEDS: MEMANTINE 5 MG TABLET PO SCH ×2 (10:41→23:24)
[2018-04-29] MEDS: DOCUSATE SODIUM 100 MG CAPSULE PO SCH ×2 (10:41→23:35)
[2018-04-29] MEDS: LORATADINE 10 MG TABLET PO SCH (10:53)
[2018-04-29] MEDS: SODIUM CHLORIDE 0.45% 1,000 ML IV SCH (12:41)
[2018-04-29] MEDS: DIVALPROEX ER 250 MG TABLET PO SCH (23:23)
[2018-04-29] MEDS: DULoxetine 30 MG CAPSULE PO SCH (23:23)
[2018-04-29] MEDS: DONEPEZIL 10 MG TABLET PO SCH (23:24)
[2018-04-29] MEDS: ATORVASTATIN 20 MG TABLET PO SCH (23:24)
[2018-04-29] MEDS: ENOXAPARIN 30 MG/0.3 ML SYRINGE SUBCUT SCH (23:27)
[2018-04-29] MEDS: OXYBUTYNIN XL 10 MG TABLET PO SCH (23:34)
[2018-04-30] MEDS: SODIUM CHLORIDE 0.45% 1,000 ML IV SCH ×3 (03:36→21:31)
[2018-04-30 05:13] LABS: Basophils # 0.1 10*3/uL (0.0-0.2); Basophils % 1.2 % (0.0-0.8); Eosinophils # 0.3 10*3/uL (0.0-0.87); Eosinophils % 4.6 % (0.00-10.9); Hematocrit 38.5 VOL% (35.7-47.0); Hemoglobin 12.3 GM/DL (12.0-16.0); Immature Granulocytes % 0.6 %; Immature Granulocytes Absolute 0.04 #; Lymphocytes # 1.8 10*3/uL (1.4-4.0); Lymphocytes % 26.6 % (21.3-54.2); Mean Corpuscular HGB Conc 31.9 GM/DL (32-36); Mean Corpuscular Hemoglobin 27 PG (27-34); Mean Corpuscular Volume 83.9 FL (87-102); Mean Platelet Volume 11.6 FL (9.6-12.0); Monocytes # 0.6 10*3/uL (0.11-0.8); Monocytes % 8.8 % (1.7-12.7); Neutrophils # 3.9 10*3/uL (1.4-7.4); Neutrophils % 58.2 % (38.7-73.9); Platelet Count 259 T/CUMM (130-400); Red Blood Count 4.59 MC/CUMM (3.8-5.5); Red Cell Distribution Width 15.8 % (9.3-17.3); White Blood Count 6.7 T/CUMM (4-12)
[2018-04-30 05:24] LABS: Albumin 2.4 G/DL (3.4-5.0); Bilirubin,Total 1.8 MG/DL (0.2-1.0); Calcium 8.5 MG/DL (8.5-10.1); Osmolality,Calculated 292.4 MOS/KG (273-304); Potassium 3.5 MMOL/L (3.5-5.1); Total Protein 6.4 G/DL (6.4-8.3)
[2018-04-30] MEDS: MEROPENEM 500 MG in SODIUM CHLORIDE 0.9% 100 ML IV SCH ×2 (05:54→18:03)
[2018-04-30] MEDS: LEVOTHYROXINE 75 MCG TABLET PO SCH (05:55)
[2018-04-30] MEDS: FERROUS SULFATE ER 140 MG TABLET PO SCH (10:06)
[2018-04-30] MEDS: ISOSORBIDE MONONITRATE 60 MG TABLET PO SCH (10:06)
[2018-04-30] MEDS: CLOPIDOGREL 75 MG TABLET PO SCH (10:07)
[2018-04-30] MEDS: FUROSEMIDE 40 MG TABLET PO SCH ×2 (10:07→16:24)
[2018-04-30] MEDS: MAGNESIUM OXIDE 400 MG TABLET PO SCH (10:07)
[2018-04-30] MEDS: DOCUSATE SODIUM 100 MG CAPSULE PO SCH ×2 (10:07→21:30)
[2018-04-30] MEDS: MEMANTINE 5 MG TABLET PO SCH ×2 (10:07→21:31)
[2018-04-30] MEDS: amLODIPine 10 MG TABLET PO SCH (10:07)
[2018-04-30] MEDS: CARVEDILOL 25 MG TABLET PO SCH ×2 (10:07→21:31)
[2018-04-30] MEDS: rOPINIRole 0.25 MG TABLET PO SCH ×3 (10:07→21:30)
[2018-04-30] MEDS: LORATADINE 10 MG TABLET PO SCH (10:08)
[2018-04-30] MEDS: POTASSIUM CHLORIDE 20 MEQ TABLET PO SCH ×2 (10:08→21:30)
[2018-04-30] MEDS: PANTOPRAZOLE 40 MG TABLET PO SCH ×2 (10:08→21:30)
[2018-04-30] MEDS: GABAPENTIN 300 MG CAPSULE PO SCH ×2 (10:08→21:30)
[2018-04-30] MEDS: FENOFIBRATE 145 MG TABLET PO SCH (10:08)
[2018-04-30] MEDS: ASPIRIN EC 81 MG TABLET PO SCH (10:08)
[2018-04-30] MEDS: OXYBUTYNIN XL 10 MG TABLET PO SCH (21:30)
[2018-04-30] MEDS: DIVALPROEX ER 250 MG TABLET PO SCH (21:30)
[2018-04-30] MEDS: ATORVASTATIN 20 MG TABLET PO SCH (21:30)
[2018-04-30] MEDS: DULoxetine 30 MG CAPSULE PO SCH (21:30)
[2018-04-30] MEDS: DONEPEZIL 10 MG TABLET PO SCH (21:30)
[2018-04-30] MEDS: ENOXAPARIN 30 MG/0.3 ML SYRINGE SUBCUT SCH (21:31)
[2018-05-01 05:23] LABS: Albumin 2.2 G/DL (3.4-5.0); Bilirubin,Total 0.8 MG/DL (0.2-1.0); Calcium 8.2 MG/DL (8.5-10.1); Osmolality,Calculated 293.4 MOS/KG (273-304); Potassium 3.8 MMOL/L (3.5-5.1)
[2018-05-01 05:33] LABS: Basophils # 0.1 10*3/uL (0.0-0.2); Basophils % 1.1 % (0.0-0.8); Eosinophils # 0.4 10*3/uL (0.0-0.87); Eosinophils % 5.6 % (0.00-10.9); Hematocrit 35.6 VOL% (35.7-47.0); Hemoglobin 11.8 GM/DL (12.0-16.0); Immature Granulocytes % 0.6 %; Immature Granulocytes Absolute 0.04 #; Lymphocytes # 2.5 10*3/uL (1.4-4.0); Lymphocytes % 35.3 % (21.3-54.2); Mean Corpuscular HGB Conc 33.1 GM/DL (32-36); Mean Corpuscular Hemoglobin 28 PG (27-34); Mean Platelet Volume 11.9 FL (9.6-12.0); Monocytes # 0.7 10*3/uL (0.11-0.8); Monocytes % 10.2 % (1.7-12.7); Neutrophils # 3.3 10*3/uL (1.4-7.4); Neutrophils % 47.2 % (38.7-73.9); Platelet Count 250 T/CUMM (130-400); Red Blood Count 4.24 MC/CUMM (3.8-5.5); Red Cell Distribution Width 15.9 % (9.3-17.3)
[2018-05-01] MEDS: LEVOTHYROXINE 75 MCG TABLET PO SCH (06:27)
[2018-05-01] MEDS: MEROPENEM 500 MG in SODIUM CHLORIDE 0.9% 100 ML IV SCH (06:28)
[2018-05-01] MEDS: SODIUM CHLORIDE 0.45% 1,000 ML IV SCH (06:49)
[2018-05-01] MEDS: MAGNESIUM OXIDE 400 MG TABLET PO SCH (09:02)
[2018-05-01] MEDS: rOPINIRole 0.25 MG TABLET PO SCH (09:02)
[2018-05-01] MEDS: CARVEDILOL 25 MG TABLET PO SCH (09:02)
[2018-05-01] MEDS: GABAPENTIN 300 MG CAPSULE PO SCH (09:02)
[2018-05-01] MEDS: PANTOPRAZOLE 40 MG TABLET PO SCH (09:02)
[2018-05-01] MEDS: DOCUSATE SODIUM 100 MG CAPSULE PO SCH (09:02)
[2018-05-01] MEDS: MEMANTINE 5 MG TABLET PO SCH (09:02)
[2018-05-01] MEDS: ASPIRIN EC 81 MG TABLET PO SCH (09:02)
[2018-05-01] MEDS: FUROSEMIDE 40 MG TABLET PO SCH (09:02)
[2018-05-01] MEDS: ISOSORBIDE MONONITRATE 60 MG TABLET PO SCH (09:02)
[2018-05-01] MEDS: POTASSIUM CHLORIDE 20 MEQ TABLET PO SCH (09:02)
[2018-05-01] MEDS: FERROUS SULFATE ER 140 MG TABLET PO SCH (09:02)
[2018-05-01] MEDS: amLODIPine 10 MG TABLET PO SCH (09:02)
[2018-05-01] MEDS: LORATADINE 10 MG TABLET PO SCH (09:02)
[2018-05-01] MEDS: FENOFIBRATE 145 MG TABLET PO SCH (09:02)
[2018-05-01] MEDS: CLOPIDOGREL 75 MG TABLET PO SCH (09:02)
[2018-05-01 09:42] VITALS: BP 185/62
== END 2018-05-01 10:33 | DRG 683 ==
LOC: EDBD → EDUNIT# → N.ED 14:51 → N.EDINP 15:46 → N.5E 17:47
PROVIDERS: ADMIT Internal Medicine; ATTEND Internal Medicine